=== PATIENT | female | born 1945 | race Caucasian/White ===

== ENCOUNTER → 2016-11-26 | Outpatient (CLI) | payer OTHER ==
[2016-11-26 10:06] LABS: CREATININE 0.82 mg/dL (0.55-1.02)
--- NOTE | 2016-11-27 06:53 | US ---
HISTORY: Abnormal findings on Diagnostic Imaging, left ovarian cyst. Prior surgical history of hyst erectomy. Study: Transabdominal pelvic ultrasound Comparison: CT scan done on July 13, 2016. Technique: transabdominal grayscale and color Doppler imaging was performed. Findings: Uterus is surgically absent. Urinary bladder region is unremarkable. Right ovary measures 16.4 x 24. 1 x 27.1 millimeters. The left ovary measures 18.7 x 25.6 x 33.9 millimeters. No evidence of cystic solid mass is seen involving either ovary. Color Doppler studies are normal. There is no evidence of cul-de-sac fluid. IMPRESSION: Surgically absent uterus. Normal ovaries. Reported By:
--- NOTE | 2016-11-27 17:01 | MRI ---
MRI OF THE ABDOMEN WITHOUT AND WITH IV CONTRAST Clinical indication: Splenomegaly and splenic lesion. Procedure: Multiplanar multi sequence MRI of the abdomen were obtained with and without the administ ration of intravenous contrast according to standard departmental protocol. Contrast: 20 cc of Omniscan. Comparisons: 07/16/2016 Findings: MRI of the abdomen without contrast: Redemonstration of hepatic steatosis. No significant ascites. MRI of the abdomen with contrast: Liver is normal appearance. Spleen measures 10.8 cm, previously 1 3.9 cm. Previously identified hypo enhancing lesion in the spleen is no longer present. No focal les ions. Gallbladder is present. No gallstones. No filling defects within the common bile duct. No franklin evangelist dilatation. Pancreas demonstrates normal T1 signal. No pancreatic masses. Adrenal glands are nor mal. Kidneys demonstrate normal cortical medullary differentiation. No hydronephrosis. Visualized pio wel is unremarkable. No suspicious lymph nodes. Impression: 1. Interval resolution of mild splenomegaly and central splenic lesion. The spleen is now normal in appearance. Correlate with any recent treatment. 2. Hepatic steatosis. Reported By:
== END | disposition home or self-care (01) | DRG 816 ==
LOC: RAD 09:18
PROVIDERS: ATTEND Internal Medicine
DX: R16.1 Splenomegaly, not elsewhere classified (principal); R93.5 Abnormal findings on diagnostic imaging of other abdominal regions, including retroperitoneum; K76.0 Fatty (change of) liver, not elsewhere classified
CPT/HCPCS: 36415; 74183; 76856; 82565; 84520

== ENCOUNTER 2020-07-01 17:30 | Inpatient (IN) ==
[2020-07-01 20:39] LABS: BASOPHILS # (AUTO) 0.2 X10^3/uL (0.0-0.1); BASOPHILS % (AUTO) 2.6 % (0.2-1.0); EOSINOPHILS % (AUTO) 0.5 % (0.9-2.9); HEMATOCRIT 44.3 % (36.0-47.0); LYMPHOCYTES # (AUTO) 1.1 X10^3/uL (1.3-2.9); LYMPHOCYTES % (AUTO) 12.3 % (21.0-51.0); MEAN CORPUSCULAR HEMOGLOBIN 29.8 pg (27.0-34.0); MEAN CORPUSCULAR HGB CONC 33.8 g/dL (33.0-35.0); MEAN CORPUSCULAR VOLUME 88.1 fL (80.0-100.0); MONOCYTES # (AUTO) 0.9 x10^3/uL (0.3-0.8); MONOCYTES % (AUTO) 9.8 % (0.0-13.0); NEUTROPHILS # (AUTO) 6.5 x10^3/uL (2.2-4.8); NEUTROPHILS % (AUTO) 74.8 % (42.0-75.0); PLATELET COUNT 189 X10^3/uL (150.0-450.0); RED BLOOD COUNT 5.03 X10^6/uL (3.5-5.4); RED CELL DISTRIBUTION WIDTH 13.5 % (11.6-16.5); WHITE BLOOD COUNT 8.7 X10^3/uL (3.6-10.0)
--- NOTE | 2020-07-01 20:48 | RAD ---
ACUTE ABDOMEN SERIESHISTORY:COVIDStudy: Frontal view of the chest, flat and upright views of the abdomenComparison:NoneFindings:Cardiomediastinal silhouette is normal in size .No focal consolidations, pleural effusions or pneumothorax. Large hiatal hernia. A expansion of the lung dubois.Flat and upright views of the abdomen demonstrates a normal bowel gas pattern.No free air..No abnormal calcifications or abnormal soft tissue shadows. No acute bony abnormalities.IMPRESSION:1. No acute cardiopulmonary disease.2. No evidence for acute abdominal pathology.Electronically signed by: CEDRIC SPRINGER (Jul 01, 2020 20:46:43)
[2020-07-01 20:54] LABS: ALANINE AMINOTRANSFERASE 36 Units/L (12-78); ALBUMIN 3.9 g/dL (3.4-5.0); ALKALINE PHOSPHATASE 80 Units/L (46-116); ASPARTATE AMINO TRANSFERASE 35 Units/L (15-37); BLOOD UREA NITROGEN 18 mg/dL (7-18); CALCIUM 10.1 mg/dL (8.5-10.1); CARBON DIOXIDE 25.5 mmol/L (21-32); CHLORIDE 98 mmol/L (98-107); COR NA(FOR HYPERGLY) 135 mmol/L (136-145); CREATININE 1.06 mg/dL (0.55-1.02); SODIUM 135 mmol/L (136-145); TOTAL PROTEIN 8.6 g/dL (6.4-8.2); eGFR NON BLACK RACES 54 (>60)
[2020-07-01] MEDS: NS 1000 ML 1,000 ML IV SCH (21:31)
[2020-07-01] MEDS: ZOFRAN INJ 4 MG VIAL IVP PRN (21:31)
[2020-07-01 22:13] VITALS: BMI 25.2
[2020-07-01] MEDS ORDERED: PHENERGAN INJ 25 MG IM ONE (23:55)
[2020-07-02] MEDS: PHENERGAN INJ 25 MG IM PRN ×2 (00:07→08:52)
[2020-07-02] MEDS: ZOFRAN INJ 4 MG VIAL IVP PRN ×2 (01:30→06:36)
[2020-07-02] MEDS ORDERED: POTASSIUM CHLORIDE LIQ 20 MEQ UDC PO PRN (01:31)
[2020-07-02] MEDS ORDERED: POTASSIUM CHL 40 MEQ/NS 0.45% 500 ML IV PRN (01:31)
[2020-07-02] MEDS ORDERED: POTASSIUM CHL 60 MEQ/NS 0.45% 500 ML IV PRN (01:31)
[2020-07-02] MEDS ORDERED: MICRO K EXTEN CAP 10 MEQ PO PRN (01:31)
[2020-07-02] MEDS ORDERED: KLOR-CON PO PRN (01:31)
[2020-07-02] MEDS ORDERED: K-DUR TAB 20 MEQ PO PRN (01:31)
[2020-07-02] MEDS ORDERED: K-RIDER 10 MEQ/NS 100 ML 20 MEQ/200 ML BAG IV ONE (01:35)
[2020-07-02] MEDS: K-RIDER 10 MEQ/NS 100 ML 10 MEQ/100 ML BAG IV PRN ×2 (01:47→03:00)
[2020-07-02] MEDS: NS 1000 ML 1,000 ML IV SCH ×3 (05:00→22:39)
[2020-07-02 05:07] LABS: BASOPHILS % (AUTO) 0.6 % (0.2-1.0); EOSINOPHILS % (AUTO) 0.3 % (0.9-2.9); HEMATOCRIT 40.5 % (36.0-47.0); HEMOGLOBIN 13.5 g/dL (12.0-16.0); LYMPHOCYTES # (AUTO) 0.7 X10^3/uL (1.3-2.9); LYMPHOCYTES % (AUTO) 9.7 % (21.0-51.0); MEAN CORPUSCULAR HEMOGLOBIN 29.5 pg (27.0-34.0); MEAN CORPUSCULAR HGB CONC 33.4 g/dL (33.0-35.0); MEAN CORPUSCULAR VOLUME 88.4 fL (80.0-100.0); MEAN PLATELET VOLUME 8.5 fL (7.4-11.0); MONOCYTES # (AUTO) 0.7 x10^3/uL (0.3-0.8); MONOCYTES % (AUTO) 9.8 % (0.0-13.0); NEUTROPHILS # (AUTO) 5.4 x10^3/uL (2.2-4.8); NEUTROPHILS % (AUTO) 79.6 % (42.0-75.0); PLATELET COUNT 170 X10^3/uL (150.0-450.0); RED BLOOD COUNT 4.59 X10^6/uL (3.5-5.4); WHITE BLOOD COUNT 6.8 X10^3/uL (3.6-10.0)
[2020-07-02 05:19] LABS: ALANINE AMINOTRANSFERASE 36 Units/L (12-78); ALBUMIN 3.3 g/dL (3.4-5.0); ALKALINE PHOSPHATASE 68 Units/L (46-116); ASPARTATE AMINO TRANSFERASE 35 Units/L (15-37); BLOOD UREA NITROGEN 17 mg/dL (7-18); CALCIUM 8.8 mg/dL (8.5-10.1); CARBON DIOXIDE 21.7 mmol/L (21-32); CHLORIDE 101 mmol/L (98-107); COR CA(FOR HYPOALB) 9.4 mg/dL (8.5-10.1); COR NA(FOR HYPERGLY) 136 mmol/L (136-145); CREATININE 0.85 mg/dL (0.55-1.02); SODIUM 136 mmol/L (136-145); TOTAL PROTEIN 7.4 g/dL (6.4-8.2); eGFR NON BLACK RACES > 60 (>60)
[2020-07-02] MEDS: MAGNESIUM SULFATE 1 GRAM/100 mL PREMIX 1 GM/100 ML BAG IV PRN ×2 (06:36→08:52)
[2020-07-02 06:54] LABS: BILIRUBIN,URINE 1+ (NEGATIVE); BLOOD/HEMOGLOBIN,URINE 1+ (NEGATIVE); GLUCOSE, URINE NEGATIVE (NEGATIVE); KETONES,URINE 4+ (NEGATIVE); LEUKOCYTE ESTERASE ,URINE 2+ (NEGATIVE); NITRITES,URINE NEGATIVE (NEGATIVE); PROTEIN,URINE 2+ (NEGATIVE); UROBILINOGEN,URINE 1+ (NORMAL)
[2020-07-02 07:03] LABS: APPEARANCE,URINE HAZY (CLEAR); BACTERIA,URINE TRACE /HPF (NEGATIVE); COLOR,URINE YELLOW (YELLOW); SQUAMOUS EPITHELIAL CELL,UR FEW /HPF (NEGATIVE)
[2020-07-02 07:04] LABS: HYALINE CASTS, URINE FEW /LPF (NEGATIVE); RENAL EPITHELIAL CELLS,URINE FEW /HPF (NEGATIVE)
[2020-07-02] MEDS ORDERED: ZOFRAN INJ 4 MG VIAL IVP PRN (10:48)
[2020-07-02] MEDS: ZOFRAN INJ 4 MG VIAL 16 MG, ATIVAN INJ 2 MG VIAL 1 MG, DECADRON INJ 10 MG in NS 50 ML I... IV PRN ×2 (11:39→21:32)
--- NOTE | 2020-07-02 11:39 | DR.H&P ---
H&P - History & Physical for Day of: H&P Date: 07/01/20 - Chief Complaint Chief Complaint: INTRACTABLE NAUSEA, VOMITING, ABDOMINAL PAIN - History of Present Illness History of Present Illness: IS A 74 YEAR OLD PATIENT OF OURS WHO HAD A TELEMEDICINE VISIT TODAY DUE TO COMPLAINTS OF INTRACTABLE NAUSEA, VOMITING, AND ABDOMINAL PAIN. SHE TESTED POSITIVE FOR COVID-19 APPROXIMATELY THREE WEEKS AGO. SHE RECEIVED THE OUTPATIENT [facility] INFUSION ON 06/19/20. SHE REPORTS COMPLIANCE WITH REGLAN 10MG ACHS AND ZOFRAN 4MG WITHOUT IMPROVEMENT IN SYMPTOMS. ABDOMINAL PAIN IS DESCRIBED CRAMPING, INTERMITTENT, AND WAS RATED A 6/10. DECISION WAS MADE TO ADMIT PATIENT TO THE HOSPITAL FOR FURTHER EVALUATION AND TREATMENT OF INTRACTABLE NAUSEA, VOMITING, AND ABDOMINAL PAIN. ON ARRIVAL TO THE HOSPITAL, VITALS WERE 99.0-96-20-99%-191/80. LABS WERE OBTAINED. ABNORMAL LAB VALUES INCLUDE THE FOLLOWING: SODIUM 135, CREATININE 1.06, GLUCOSE 116, TOTAL PROTEIN 8.6, GLOBULIN 4.7. URINALYSIS REVEALED: WBC 10-20, RBC 3-5, LEUKOCYTES 2+, BACTERIA TRACE, OCCULT BLOOD 1+, KETONES 4+, PROTEIN 2+. COVID-19 POSITIVE. URINE CULTURE WAS SET UP. AN ABDOMINAL SERIES WAS OBTAINED AND REVEALED: 1. No acute cardiopulmonary disease. 2. No evidence for acute abdominal pathology. SHE WAS STARTED ON NS AT 125 ML/HR, PEPCID 20MG IV Q12H, PROTONIX 40MG IV BID, PHENERGAN 12.5MG IM Q6H PRN, ZOFRAN 4MG IV Q4H PRN. WE WILL CONSULT WITH DUE TO INTRACTABLE SYMPTOMS. WE WILL OBTAIN AN ABDOMEN/PELVIS CT WITH CONTRAST AND A CHEST CTA TO RULE OUT PE. OTHERWISE, WE PLAN TO FOLLOW UP WITH AM LABS AND CONTINUE TO MONITOR. TIME SPENT ON CLINICAL ASSESSMENT, REVIEWING LABS AND IMAGING, DECISION MAKING, AND DOCUMENTATION GREATER THAN 75 MINUTES. - Past Medical History Past Medical History: Anxiety, GERD, Hypertension, Sleep Apnea Additional Medical History: IBS, HIATAL HERNIA - Past Surgical History Surgical History: Hysterectomy Additional Surgical History: Bladder tack-approximately 10 years ago - Family History Family Medical History: Cancer, Hypertension - Social History Alcohol Use: None Drug Use: None - Medications Home Medications: No Known Drug Allergies Allergy (Verified 04/19/18 10:27) CONTINUE taking the following medications alprazolam 0.5 mg PO DAILY PRN 07/01/20 [History] benzonatate 200 mg PO TID 07/01/20 [History] dicyclomine 20 mg PO TID 07/01/20 [History] esomeprazole magnesium 20 mg PO BID 07/01/20 [History] metoclopramide HCl 10 mg PO TID 07/01/20 [History] ondansetron 4 mg PO Q6H PRN 07/01/20 [History] temazepam 30 mg PO QHS PRN 07/01/20 [History] - Review of Systems Constitutional: Weakness Eyes: No Symptoms Reported ENT: No Symptoms Reported Respiratory: No Symptoms Reported Cardiovascular: No Symptoms Reported Gastrointestinal: See HPI, Nausea, Vomiting, Abdominal Pain, Diarrhea Genitourinary: No Symptoms Reported Musculoskeletal: No Symptoms Reported Skin: No Symptoms Reported Neurological: Weakness - Physical Exam Vital Signs: Temperature 97.6 F Pulse Rate [Left Radial] 88 Respiratory Rate 20 Blood Pressure [Left Arm] 178/75 O2 Sat by Pulse Oximetry 97 Oriented: Normal Eyes: Normal Ear: Normal Nose: Normal Throat: Normal Respiratory: Diminished Throughout Cardiovascular: Normal : Normal Auscultation: Bowel Sounds: Normal Palpation: Normal Tenderness: Diffuse, Moderate. negative: Rebound, Guarding, Rigidity Skin: Normal Musculoskeletal: Normal Psychiatric: Normal Mood Description: Calm Affect: Normal Speech Pattern: Clear - Assessment/Plan (1) Intractable nausea and vomiting Status: Acute Plan: ADMIT, NS AT 125 ML/HR, PEPCID 20MG IV Q12H, PROTONIX 40MG IV BID, PHENERGAN 12.5MG IM Q6H PRN, ZOFRAN 4MG IV Q4H PRN. OBTAIN ABDOMEN/PELVIS CT WITH CONTRAST. OBTAIN CHEST CTA TO RULE OUT PE. CONSULT (2) Abdominal pain Qualifiers: Abdominal location: generalized Qualified Code(s): R10.84 - Generalized abdominal pain Status: Acute (3) COVID-19 Status: Acute - Allergies Allergies/Adverse Reactions: Allergies Allergy/AdvReac Type Severity Reaction Status Date / Time No Known Drug Allergies Allergy Verified 04/19/18 10:27
--- NOTE | 2020-07-02 11:56 | CT ---
HISTORYELEVATED DDIMER, COVID-19 positiveSTUDYCTA CHEST with IV contrastCOMPARISONChest x-ray 06/19/2020TECHNIQUEMultiple axial images of the chest were obtained from the thoracic inlet to the upper abdomen after the administration of IV contrast. 3D reconstructions utilizing axial MIPS imaging was performed and reviewed. Dose reduction techniques including Automated Exposure Control (AEC) and adjustment of mA and kV were utilized.FINDINGSMild atelectasis is seen in the lower lobes associated with the large paraesophageal hernia. There is probable esophagitis in the mid to distal esophagus. Gastroesophageal reflux is seen. Moderate dilation is seen of the stomach in the abdomen which could be partially obstructed.Trace left pleural effusion is seen. No suggestion of viral pneumonia is seen. Heart is normal in size without evidence of pericardial effusion. Thoracic aorta is normal in size without evidence of dissection. No mediastinal lymphadenopathy is seen. No pulmonary embolus is seen.IMPRESSIONNo pulmonary embolus is seen. No suggestion of COVID-19 pneumonia.Large paraesophageal hernia is seen. Gastroesophageal reflux is seen with probable esophagitis. Correlation with endoscopy is recommended to assure no esophageal malignancy.Electronically signed by: Rolando Giang (Jul 02, 2020 11:54:47)
[2020-07-02] MEDS: PROTONIX INJ 40 MG VIAL IVP SCH ×2 (12:10→21:32)
[2020-07-02] MEDS: PEPCID 20 MG IV PREMIX* 20 MG/50 ML BAG IV SCH ×2 (12:10→21:32)
--- NOTE | 2020-07-02 12:59 | DR.CONSULT ---
Consult - Consultation for Day of: Date: 07/02/20 - Chief Complaint Chief Complaint: Patient referrred for intreactable nausea and vomiting. Patient with complaints of nausea, vomiting and epigastric pain. - History of Present Illness History of Present Illness: Patient is a 74 yo female COVID positive dx 3 weeks ago, who was referrred for intreactable nausea and vomiting. Patient with complaints of nausea, vomiting, has been vomiting coffee ground emesis and epigastric pain. Patient deneis dysphagia, dyspesia, constipation, diarrhea, melena and hematochezia. LAst colon was 06/13/18 which showed internal hemorrhoids and hyperplastic colon polyp. Last EGD was 06/23/18 which showed 6-7cm hiatal hernia, distal esophagitits with stricture and erosive gastritis. Hgb 13.5, Hct 40.5, Plt 170, BUN 17, Creatinine 0.85, T. Bili 0.5, AST 35, ALT 36, ALP 68 - Past Medical History Past Medical History: Anxiety, GERD, Hypertension, Sleep Apnea Additional Medical History: IBS, HIATAL HERNIA - Past Surgical History Surgical History: Hysterectomy Additional Surgical History: Bladder tack-approximately 10 years ago - Family History Family Medical History: Cancer, Hypertension - Social History Alcohol Use: None Drug Use: None - Medications Home Medications: No Known Drug Allergies Allergy (Verified 04/19/18 10:27) CONTINUE taking the following medications alprazolam 0.5 mg PO DAILY PRN 07/01/20 [History] benzonatate 200 mg PO TID 07/01/20 [History] dicyclomine 20 mg PO TID 07/01/20 [History] esomeprazole magnesium 20 mg PO BID 07/01/20 [History] metoclopramide HCl 10 mg PO TID 07/01/20 [History] ondansetron 4 mg PO Q6H PRN 07/01/20 [History] temazepam 30 mg PO QHS PRN 07/01/20 [History] - Review of Systems Gastrointestinal: Nausea, Vomiting, Abdominal Pain (epigastric), Other (coffee ground emesis). denies: Diarrhea, Constipation, Melena, Hematochezia - Physical Exam Vital Signs: Temperature 97.6 F Pulse Rate [Left Radial] 88 Respiratory Rate 20 Blood Pressure [Left Arm] 178/75 O2 Sat by Pulse Oximetry 97 Oriented: Normal Eyes: Normal Ear: Normal Nose: Normal Throat: Normal Respiratory: Clear Throughout Cardiovascular: Normal : Normal Auscultation: Bowel Sounds: Normal Palpation: Normal, Other (non distended). negative: Spleen Enlarged, Liver Enlarged, Mass Pulsatile Tenderness: Normal (non tender) Skin: Normal Musculoskeletal: Normal Psychiatric: Normal Mood Description: Calm Speech Pattern: Clear, Appropriate - Plan Plan: Assessment. 1. Nausea, vomiting, coffee ground emesis r/o gastric ulcer. Plan. 1. EGD on , protonix IV. Plan reviewed with Dr. Aleman - Allergies Allergies/Adverse Reactions: Allergies Allergy/AdvReac Type Severity Reaction Status Date / Time No Known Drug Allergies Allergy Verified 04/19/18 10:27
[2020-07-02] MEDS: NS 100 ML IV 100 ML IV ONE ×2 (19:36→19:37)
[2020-07-02] MEDS: COLACE CAP 100 MG PO SCH (21:31)
[2020-07-02] MEDS: MILK OF MAGNESIA PO SCH (21:32)
[2020-07-03 05:09] LABS: BASOPHILS % (AUTO) 0.2 % (0.2-1.0); HEMATOCRIT 34.9 % (36.0-47.0); HEMOGLOBIN 11.6 g/dL (12.0-16.0); LYMPHOCYTES # (AUTO) 0.5 X10^3/uL (1.3-2.9); MEAN CORPUSCULAR HEMOGLOBIN 29.4 pg (27.0-34.0); MEAN CORPUSCULAR HGB CONC 33.2 g/dL (33.0-35.0); MEAN CORPUSCULAR VOLUME 88.4 fL (80.0-100.0); MEAN PLATELET VOLUME 8.3 fL (7.4-11.0); MONOCYTES # (AUTO) 0.2 x10^3/uL (0.3-0.8); MONOCYTES % (AUTO) 5.1 % (0.0-13.0); NEUTROPHILS # (AUTO) 3.9 x10^3/uL (2.2-4.8); NEUTROPHILS % (AUTO) 83.7 % (42.0-75.0); PLATELET COUNT 147 X10^3/uL (150.0-450.0); RED BLOOD COUNT 3.95 X10^6/uL (3.5-5.4); RED CELL DISTRIBUTION WIDTH 13.1 % (11.6-16.5); WHITE BLOOD COUNT 4.7 X10^3/uL (3.6-10.0)
[2020-07-03 05:30] LABS: ALANINE AMINOTRANSFERASE 31 Units/L (12-78); ALBUMIN 2.7 g/dL (3.4-5.0); ALKALINE PHOSPHATASE 55 Units/L (46-116); ASPARTATE AMINO TRANSFERASE 24 Units/L (15-37); BLOOD UREA NITROGEN 13 mg/dL (7-18); CALCIUM 8.3 mg/dL (8.5-10.1); CARBON DIOXIDE 19.8 mmol/L (21-32); CHLORIDE 108 mmol/L (98-107); COR CA(FOR HYPOALB) 9.3 mg/dL (8.5-10.1); COR NA(FOR HYPERGLY) 141 mmol/L (136-145); CREATININE 0.69 mg/dL (0.55-1.02); MAGNESIUM 2.2 mg/dL (1.7-2.9); SODIUM 140 mmol/L (136-145); TOTAL PROTEIN 6.3 g/dL (6.4-8.2); eGFR NON BLACK RACES > 60 (>60)
[2020-07-03] MEDS ORDERED: LASIX IVP ONE (06:17)
[2020-07-03] MEDS: NS 1000 ML 1,000 ML IV SCH ×4 (06:45→20:02)
[2020-07-03] MEDS: PROTONIX INJ 40 MG VIAL IVP SCH ×2 (09:04→20:11)
[2020-07-03] MEDS: PEPCID 20 MG IV PREMIX* 20 MG/50 ML BAG IV SCH ×2 (09:04→20:12)
[2020-07-03] MEDS ORDERED: NS 100 ML IV 100 ML IV ONE (09:57)
--- NOTE | 2020-07-03 11:45 | CT ---
HISTORYABD PAIN previous pelvic surgerySTUDYABDOMEN/PELVIS WITH CONCOMPARISONCT abdomen and pelvis 05/23/2018TECHNIQUEMultiple CT axial images of the abdomen and pelvis were obtained with IV contrast. Coronal and sagittal images were reconstructed. Dose reduction techniques included Automated Exposure Control (AEC) and adjustment of mA and kV.FINDINGSLarge hernia through the esophageal/aortic hiatus is larger than on the prior study. Today this measures about 14.5 cm wide, previously 12 cm. This contains most of the stomach. No inflammation or fluid at the site.There is a small left pleural effusion. This is new since the prior study. Trace right effusion is also new. Otherwise lung bases are clear. Heart size within normal limits.The liver is normal in size and configuration. The gallbladder has no inflammation around it. The spleen is normal in size and shape.The adrenal glands are normal. The pancreas is normal.Renal enhancement is symmetric with no solid mass. No abnormal calcification is present. There is no hydronephrosis or significant perirenal edema. Small right renal cysts are stable.The ureters are not dilated. The bladder is normally distended. It has no wall thickening or perivesical edema.The bowel is not dilated. There is no wall thickening in the bowel or edema around the bowel. A normal appendix is not identified. But there is no inflammation around the cecum or at the expected location of the appendix.No uterus identified. No solid mass or free fluid. There is a cyst in the left pelvis which is probably ovarian in origin. It measures 17 mm, unchanged from the prior study. A given its stability and appearance, it is most likely benign.Degenerative changes are present in the spine.IMPRESSION1. Larger hiatal hernia2. New small effusions3. Stable left ovarian cyst (17 mm, probably benignElectronically signed by: Saurav Matamoros (Jul 03, 2020 11:42:28)
[2020-07-03] MEDS: INVANZ INJ 1 GM VIAL 1 GM in NS 100 ML IV + SPIKE MINIBAG* 100 ML IV SCH (17:49)
[2020-07-03] MEDS: COLACE CAP 100 MG PO SCH (20:11)
[2020-07-03] MEDS: MILK OF MAGNESIA PO SCH (20:12)
[2020-07-03] MEDS ORDERED: RESTORIL CAP 15 MG PO PRN (21:09)
[2020-07-03] MEDS: ZOFRAN INJ 4 MG VIAL 16 MG, ATIVAN INJ 2 MG VIAL 1 MG, DECADRON INJ 10 MG in NS 50 ML I... IV PRN (21:34)
[2020-07-04] MEDS: NS 1000 ML 1,000 ML IV SCH ×4 (04:24→20:03)
[2020-07-04 05:15] LABS: BASOPHILS % (AUTO) 0.2 % (0.2-1.0); HEMATOCRIT 34.4 % (36.0-47.0); HEMOGLOBIN 11.3 g/dL (12.0-16.0); LYMPHOCYTES # (AUTO) 0.6 X10^3/uL (1.3-2.9); LYMPHOCYTES % (AUTO) 7.7 % (21.0-51.0); MEAN CORPUSCULAR HEMOGLOBIN 29.2 pg (27.0-34.0); MEAN CORPUSCULAR HGB CONC 32.9 g/dL (33.0-35.0); MEAN CORPUSCULAR VOLUME 88.8 fL (80.0-100.0); MEAN PLATELET VOLUME 9.1 fL (7.4-11.0); MONOCYTES # (AUTO) 0.2 x10^3/uL (0.3-0.8); MONOCYTES % (AUTO) 3.4 % (0.0-13.0); NEUTROPHILS # (AUTO) 6.4 x10^3/uL (2.2-4.8); NEUTROPHILS % (AUTO) 88.7 % (42.0-75.0); PLATELET COUNT 155 X10^3/uL (150.0-450.0); RED BLOOD COUNT 3.88 X10^6/uL (3.5-5.4); RED CELL DISTRIBUTION WIDTH 13.3 % (11.6-16.5); WHITE BLOOD COUNT 7.2 X10^3/uL (3.6-10.0)
[2020-07-04 05:26] LABS: ALANINE AMINOTRANSFERASE 31 Units/L (12-78); ALBUMIN 2.8 g/dL (3.4-5.0); ALKALINE PHOSPHATASE 52 Units/L (46-116); ASPARTATE AMINO TRANSFERASE 20 Units/L (15-37); BLOOD UREA NITROGEN 12 mg/dL (7-18); CALCIUM 8.8 mg/dL (8.5-10.1); CARBON DIOXIDE 21.8 mmol/L (21-32); CHLORIDE 107 mmol/L (98-107); COR CA(FOR HYPOALB) 9.8 mg/dL (8.5-10.1); COR NA(FOR HYPERGLY) 140 mmol/L (136-145); CREATININE 0.76 mg/dL (0.55-1.02); SODIUM 140 mmol/L (136-145); TOTAL PROTEIN 6.4 g/dL (6.4-8.2); eGFR NON BLACK RACES > 60 (>60)
[2020-07-04] MEDS: PROTONIX INJ 40 MG VIAL IVP SCH ×2 (08:47→20:02)
[2020-07-04] MEDS: INVANZ INJ 1 GM VIAL 1 GM in NS 100 ML IV + SPIKE MINIBAG* 100 ML IV SCH (08:47)
[2020-07-04] MEDS: PEPCID 20 MG IV PREMIX* 20 MG/50 ML BAG IV SCH ×2 (08:48→20:01)
--- NOTE | 2020-07-04 08:51 | PCM.PROG ---
Progress Note - Progress Note for Day of Date of Exam: 07/03/20 - Subjective Subjective: WAS ADMITTED FOR TREATMENT OF INTRACTABLE NAUSEA, VOMITING, AND ABDOMINAL PAIN. SHE IS COVID POSITIVE, HOWEVER, SHE INITIALLY TESTED POSITIVE JUST OVER THREE WEEKS AGO. SHE DENIES COUGH OR SHORTNESS OF BREATH THIS MORNING. SYMPTOMS PERSIST THIS MORNING, BUT SHE DOES REPORT SLIGHT I MPROVEMENT TODAY. ON EXAMINATION, HEART IS REGULAR IN RATE AND RHYTHM. BILATERAL LUNGS ARE NOTED WITH DIMINISHED LUNG SOUNDS THROUGHOUT. ABDOMEN IS ROUND, SOFT, AND NOTED WITH DIFFUSE TENDERNESS THROUGHOUT. NORMAL BOWEL SOUNDS ARE NOTED IN ALL QUADRANTS. HER VITALS THIS MORNING ARE: 98.9-64-20-93%-134/62. LABS WERE OBTAINED. ABNORMAL LAB VALUES INCLUDE THE FOLLOWING: HGB 11.6, HCT 34.9, PLT COUNT 147, CHLORIDE 108, CARBON DIOXIDE 19.8, GLUCOSE 122, CALCIUM 8.3, FERRITIN 376, CRP 48.30, TOTAL PROTEIN 6.3, ALBUMIN 2.7. URINE CULTURE IS PENDING. A CHEST CTA WAS OBTAINED YESTERDAY TO RULE OUT PE DUE TO ELEVATED D-DIMER. IT REVEALED: No pulmonary embolus is seen. No suggestion of COVID-19 pneumonia. Large paraesophageal hernia is seen. Gastroesophageal reflux is seen with probable esophagitis. Correlation with endoscopy is recommended to assure no esophageal malignancy. WE OBTAINED AN ABDOMEN/PELVIS CT WITH CONTRAST THIS MORNING WHICH REVEALED: 1. Larger hiatal hernia 2. New small effusions 3. Stable left ovarian cyst (17 mm, probably benign). CONSULTED WITH PATIENT AND PLANS FOR AN EGD TOMORROW. WE ARE IN AGREEMENT WITH PLANS. OTHERWISE, WE PLAN TO FOLLOW UP WITH AM LABS AND CONTINUE TO MONITOR. TIME SPENT ON CLINICAL ASSESSMENT, REVIEWING LABS AND IMAGING, DECISION MAKING, AND DOCUMENTATION GREATER THAN 75 MINUTES. - Past Medical Family Social History Past Med/Fam/Surg Hx: No changes since H&P Allergies: Allergies No Known Drug Allergies Allergy (Verified 04/19/18 10:27) - Review of Systems ROS: No change since H&P - Vital Signs and I&O's Vital Signs: Temperature 98.7 F Pulse Rate [Left Radial] 53 Respiratory Rate 8 Blood Pressure [Left Arm] 178/77 O2 Sat by Pulse Oximetry 94 Intake and Output: Intake & Output 07/01/20 07/02/20 07/03/20 07/04/20 11:59 11:59 11:59 11:59 Intake Total 1119 / 1119 2788 / 2788 222 / 2223 Output Total 900 / 900 200 / 200 Balance 219 / 219 2588 / 2588 2222 / 2222 - Physical Exam Oriented: Normal Eyes: Normal Ear: Normal Nose: Normal Throat: Normal Respiratory: Generalized, Diminished Cardiovascular: Normal : Normal Auscultation: Bowel Sounds: Normal Palpation: Normal Tenderness: Normal (non tender) Skin: Normal Musculoskeletal: Normal Psychiatric: Normal Mood Description: Calm Affect: Normal Speech Pattern: Clear, Appropriate - Laboratory and Diagnostics Result Diagrams: 07/04/20 04:30 07/04/20 04:30 Labs: 07/02/20 06:29 Urine,Clean Catch Urine Culture - Preliminary Laboratory WBC 7.2 X10^3/uL (3.6-10.0) 07/04/20 04:30 RBC 3.88 X10^6/uL (3.5-5.4) 07/04/20 04:30 Hgb 11.3 g/dL (12.0-16.0) L 07/04/20 04:30 Hct 34.4 % (36.0-47.0) L 07/04/20 04:30 MCV 88.8 fL (80.0-100.0) 07/04/20 04:30 MCH 29.2 pg (27.0-34.0) 07/04/20 04:30 MCHC 32.9 g/dL (33.0-35.0) L 07/04/20 04:30 RDW 13.3 % (11.6-16.5) 07/04/20 04:30 Plt Count 155 X10^3/uL (150.0-450.0) 07/04/20 04:30 MPV 9.1 fL (7.4-11.0) 07/04/20 04:30 Neut % (Auto) 88.7 % (42.0-75.0) H 07/04/20 04:30 Lymph % (Auto) 7.7 % (21.0-51.0) L 07/04/20 04:30 [place] % (Auto) 3.4 % (0.0-13.0) 07/04/20 04:30 Eos % (Auto) 0.0 % (0.9-2.9) L 07/04/20 04:30 Baso % (Auto) 0.2 % (0.2-1.0) 07/04/20 04:30 Neut # (Auto) 6.4 x10^3/uL (2.2-4.8) H 07/04/20 04:30 Lymph # (Auto) 0.6 X10^3/uL (1.3-2.9) L 07/04/20 04:30 [place] # (Auto) 0.2 x10^3/uL (0.3-0.8) L 07/04/20 04:30 Eos # (Auto) 0.0 x10^3/uL (0.0-0.2) 07/04/20 04:30 Baso # (Auto) 0.0 X10^3/uL (0.0-0.1) 07/04/20 04:30 Absolute Nucleated RBC 0.1 /100WBC 07/04/20 04:30 D-Dimer 3.23 ug/ml (0.0-0.57) H* 07/04/20 04:30 Sodium 140 mmol/L (136-145) 07/04/20 04:30 Corrected Sodium 140 mmol/L (136-145) 07/04/20 04:30 Potassium 3.9 mmol/L (3.5-5.1) 07/04/20 04:30 Chloride 107 mmol/L (98-107) 07/04/20 04:30 Carbon Dioxide 21.8 mmol/L (21-32) 07/04/20 04:30 BUN 12 mg/dL (7-18) 07/04/20 04:30 Creatinine 0.76 mg/dL (0.55-1.02) 07/04/20 04:30 Est GFR (MDRD) Af Amer > 60 (>60) 07/04/20 04:30 Est GFR (MDRD) Non-Af > 60 (>60) 07/04/20 04:30 Glucose 111 mg/dL (65-99) H 07/04/20 04:30 Calcium 8.8 mg/dL (8.5-10.1) 07/04/20 04:30 Corrected Calcium 9.8 mg/dL (8.5-10.1) 07/04/20 04:30 Magnesium 2.2 mg/dL (1.7-2.9) 07/03/20 04:30 Ferritin 376 ng/mL (8-252) H 07/03/20 04:30 Total Bilirubin 0.30 mg/dL (0.2-1.0) 07/04/20 04:30 AST 20 Units/L (15-37) 07/04/20 04:30 ALT 31 Units/L (12-78) 07/04/20 04:30 Alkaline Phosphatase 52 Units/L (46-116) 07/04/20 04:30 C-Reactive Protein 48.30 mg/L (0-3.0) H 07/03/20 04:30 B-Natriuretic Peptide 44.6 pg/mL (0-79) 07/02/20 04:10 Total Protein 6.4 g/dL (6.4-8.2) 07/04/20 04:30 Albumin 2.8 g/dL (3.4-5.0) L 07/04/20 04:30 Globulin 3.6 g/dL (2.5-4.5) 07/04/20 04:30 Albumin/Globulin Ratio 0.8 Ratio (1.1-2.1) L 07/04/20 04:30 Specimen Type Clean catch urine 07/02/20 06:29 Urine Color Yellow (YELLOW) 07/02/20 06:29 Urine Appearance Hazy (CLEAR) 07/02/20 06:29 Urine pH 5.0 (5.0 - 8.0) 07/02/20 06:29 Ur Specific [place] 1.025 (1.000-1.030) 07/02/20 06:29 Urine Protein 2+ (NEGATIVE) 07/02/20 06:29 Urine Glucose (UA) Negative (NEGATIVE) 07/02/20 06: Urine Ketones 4+ (NEGATIVE) 07/02/20 06:29 Urine Occult Blood 1+ (NEGATIVE) 07/02/20 06: Urine Nitrite Negative (NEGATIVE) 07/02/20 06:29 Urine Bilirubin 1+ (NEGATIVE) 07/02/20 06: Urine Urobilinogen 1+ (NORMAL) 07/02/20 06:29 Ur Leukocyte Esterase 2+ (NEGATIVE) 07/02/20 06:29 Urine RBC 3-5 /HPF (0-3) A 07/02/20 06:29 Urine WBC 10-20 /HPF (0-5) A 07/02/20 06:29 Ur Squamous Epith Cells Few /HPF (NEGATIVE) 07/02/20 06:29 Ur Renal Epithelial Cell Few /HPF (NEGATIVE) 07/02/20 06:29 Urine Bacteria Trace /HPF (NEGATIVE) 07/02/20 06:29 Hyaline Casts Few /LPF (NEGATIVE) 07/02/20 06:29 Ur Culture Indicated? Yes/culture set up 07/02/20 06:29 SARS CoV-2 RNA Rapid ODESSA Positive (NEGATIVE) A 07/01/20 18:30 - Plan (1) Intractable nausea and vomiting Status: Acute Plan: NS AT 125 ML/HR, PEPCID 20MG IV Q12H, PROTONIX 40MG IV BID, PHENERGAN 12.5MG IM Q6H PRN, ZOFRAN 4MG IV Q4H PRN. SURGICAL CONSULT (2) Abdominal pain Status: Acute Qualifiers: Abdominal location: generalized Qualified Code(s): R10.84 - Generalized abdominal pain (3) COVID-19 Status: Acute
--- NOTE | 2020-07-04 09:01 | PCM.PROG ---
Progress Note - Progress Note for Day of Date of Exam: 07/02/20 - Subjective Subjective: WAS ADMITTED FOR TREATMENT OF INTRACTABLE NAUSEA, VOMITING, AND ABDOMINAL PAIN. SHE IS COVID POSITIVE, HOWEVER, SHE INITIALLY TESTED POSITIVE JUST OVER THREE WEEKS AGO. SHE DENIES COUGH OR SHORTNESS OF BREATH THIS MORNING. SYMPTOMS PERSIST THIS MORNING. SHE DENIES SIGNIFICANT IMPRO VEMENT IN SYMPTOMS SINCE ONE DAY PRIOR. ON EXAMINATION, HEART IS REGULAR IN RATE AND RHYTHM. BILATERAL LUNGS ARE NOTED WITH DIMINISHED LUNG SOUNDS THROUGHOUT. ABDOMEN IS ROUND, SOFT, AND NOTED WITH DIFFUSE TENDERNESS THROUGHOUT. NORMAL BOWEL SOUNDS ARE NOTED IN ALL QUADRANTS. HER VITALS THIS MORNING ARE: 97.6-88-20-97%-178/75. LABS WERE OBTAINED. ABNORMAL LAB VALUES INCLUDE THE FOLLOWING: D-DIMER 3.04, GLUCOSE 111, ALBUMIN 3.3, FERRITIN 409, CRP 56.70. URINALYSIS WAS OBTAINED THIS MORNING AND REVEALED: WBC 10-20, RBC 3-5, BACTERIA TRACE, LEUKOCYTES 2+. URINE CULTURE IS PENDING. NS AT 125 ML/HR, PEPCID 20MG IV Q12H, PROTONIX 40MG IV BID, PHENERGAN 12.5MG IM Q6H PRN, ZOFRAN 4MG IV Q4H PRN. TODAY, WE WILL OBTAIN A CHEST CTA TO RULE OUT PE. WE WILL ALSO ADD ZOFRAN COCKTAIL Q8H PRN NAUSEA/VOMITING. WE WILL CONSULT WITH , GASTRO ENTEROLOGIST. OTHERWISE, WE PLAN TO FOLLOW UP WITH AM LABS AND CONTINUE TO MONITOR. TIME SPENT ON CLINICAL ASSESSMENT, REVIEWING LABS AND IMAGING, DECISION MAKING, AND DOCUMENTATION GREATER THAN 75 MINUTES. - Past Medical Family Social History Past Med/Fam/Surg Hx: No changes since H&P Allergies: Allergies No Known Drug Allergies Allergy (Verified 04/19/18 10:27) - Review of Systems ROS: No change since H&P - Vital Signs and I&O's Vital Signs: Temperature 98.7 F Pulse Rate [Left Radial] 53 Respiratory Rate 8 Blood Pressure [Left Arm] 178/77 O2 Sat by Pulse Oximetry 94 Intake and Output: Intake & Output 07/01/20 07/02/20 07/03/20 07/04/20 11:59 11:59 11:59 11:59 Intake Total 1119 / 1119 2788 / 2788 2223 / 2223 Output Total 900 / 900 200 / 200 Balance 219 / 219 2588 / 2588 2223 / 2223 - Physical Exam Oriented: Normal Eyes: Normal Ear: Normal Nose: Normal Throat: Normal Respiratory: Generalized, Diminished Cardiovascular: Normal : Normal Auscultation: Bowel Sounds: Normal Palpation: Normal Tenderness: Normal (non tender) Skin: Normal Musculoskeletal: Normal Psychiatric: Normal Mood Description: Calm Affect: Normal Speech Pattern: Clear, Appropriate - Laboratory and Diagnostics Result Diagrams: 07/04/20 04:30 07/04/20 04:30 Labs: 07/02/20 06:29 Urine,Clean Catch Urine Culture - Preliminary Laboratory WBC 7.2 X10^3/uL (3.6-10.0) 07/04/20 04:30 RBC 3.88 X10^6/uL (3.5-5.4) 07/04/20 04:30 Hgb 11.3 g/dL (12.0-16.0) L 07/04/20 04:30 Hct 34.4 % (36.0-47.0) L 07/04/20 04:30 MCV 88.8 fL (80.0-100.0) 07/04/20 04:30 MCH 29.2 pg (27.0-34.0) 07/04/20 04:30 MCHC 32.9 g/dL (33.0-35.0) L 07/04/20 04:30 RDW 13.3 % (11.6-16.5) 07/04/20 04:30 Plt Count 155 X10^3/uL (150.0-450.0) 07/04/20 04:30 MPV 9.1 fL (7.4-11.0) 07/04/20 04:30 Neut % (Auto) 88.7 % (42.0-75.0) H 07/04/20 04:30 Lymph % (Auto) 7.7 % (21.0-51.0) L 07/04/20 04:30 [place] % (Auto) 3.4 % (0.0-13.0) 07/04/20 04:30 Eos % (Auto) 0.0 % (0.9-2.9) L 07/04/20 04:30 Baso % (Auto) 0.2 % (0.2-1.0) 07/04/20 04:30 Neut # (Auto) 6.4 x10^3/uL (2.2-4.8) H 07/04/20 04:30 Lymph # (Auto) 0.6 X10^3/uL (1.3-2.9) L 07/04/20 04:30 [place] # (Auto) 0.2 x10^3/uL (0.3-0.8) L 07/04/20 04:30 Eos # (Auto) 0.0 x10^3/uL (0.0-0.2) 07/04/20 04:30 Baso # (Auto) 0.0 X10^3/uL (0.0-0.1) 07/04/20 04:30 Absolute Nucleated RBC 0.1 /100WBC 07/04/20 04:30 D-Dimer 3.23 ug/ml (0.0-0.57) H* 07/04/20 04:30 Sodium 140 mmol/L (136-145) 07/04/20 04:30 Corrected Sodium 140 mmol/L (136-145) 07/04/20 04:30 Potassium 3.9 mmol/L (3.5-5.1) 07/04/20 04:30 Chloride 107 mmol/L (98-107) 07/04/20 04:30 Carbon Dioxide 21.8 mmol/L (21-32) 07/04/20 04:30 BUN 12 mg/dL (7-18) 07/04/20 04:30 Creatinine 0.76 mg/dL (0.55-1.02) 07/04/20 04:30 Est GFR (MDRD) Af Amer > 60 (>60) 07/04/20 04:30 Est GFR (MDRD) Non-Af > 60 (>60) 07/04/20 04:30 Glucose 111 mg/dL (65-99) H 07/04/20 04:30 Calcium 8.8 mg/dL (8.5-10.1) 07/04/20 04:30 Corrected Calcium 9.8 mg/dL (8.5-10.1) 07/04/20 04:30 Magnesium 2.2 mg/dL (1.7-2.9) 07/03/20 04:30 Ferritin 376 ng/mL (8-252) H 07/03/20 04:30 Total Bilirubin 0.30 mg/dL (0.2-1.0) 07/04/20 04:30 AST 20 Units/L (15-37) 07/04/20 04:30 ALT 31 Units/L (12-78) 07/04/20 04:30 Alkaline Phosphatase 52 Units/L (46-116) 07/04/20 04:30 C-Reactive Protein 48.30 mg/L (0-3.0) H 07/03/20 04:30 B-Natriuretic Peptide 44.6 pg/mL (0-79) 07/02/20 04:10 Total Protein 6.4 g/dL (6.4-8.2) 07/04/20 04:30 Albumin 2.8 g/dL (3.4-5.0) L 07/04/20 04:30 Globulin 3.6 g/dL (2.5-4.5) 07/04/20 04:30 Albumin/Globulin Ratio 0.8 Ratio (1.1-2.1) L 07/04/20 04:30 Specimen Type Clean catch urine 07/02/20 06:29 Urine Color Yellow (YELLOW) 07/02/20 06:29 Urine Appearance Hazy (CLEAR) 07/02/20 06:29 Urine pH 5.0 (5.0 - 8.0) 07/02/20 06:29 Ur Specific [place] 1.025 (1.000-1.030) 07/02/20 06:29 Urine Protein 2+ (NEGATIVE) 07/02/20 06:29 Urine Glucose (UA) Negative (NEGATIVE) 07/02/20 06:29 Urine Ketones 4+ (NEGATIVE) 07/02/20 06:29 Urine Occult Blood 1+ (NEGATIVE) 07/02/20 06:29 Urine Nitrite Negative (NEGATIVE) 07/02/20 06:29 Urine Bilirubin 1+ (NEGATIVE) 07/02/20 06:29 Urine Urobilinogen 1+ (NORMAL) 07/02/20 06:29 Ur Leukocyte Esterase 2+ (NEGATIVE) 07/02/20 06:29 Urine RBC 3-5 /HPF (0-3) A 07/02/20 06:29 Urine WBC 10-20 /HPF (0-5) A 07/02/20 06:29 Ur Squamous Epith Cells Few /HPF (NEGATIVE) 07/02/20 06:29 Ur Renal Epithelial Cell Few /HPF (NEGATIVE) 07/02/20 06:29 Urine Bacteria Trace /HPF (NEGATIVE) 07/02/20 06:29 Hyaline Casts Few /LPF (NEGATIVE) 07/02/20 06:29 Ur Culture Indicated? Yes/culture set up 07/02/20 06:29 SARS CoV-2 RNA Rapid ODESSA Positive (NEGATIVE) A 07/01/20 18:30 - Plan (1) Intractable nausea and vomiting Status: Acute Plan: NS AT 125 ML/HR, PEPCID 20MG IV Q12H, PROTONIX 40MG IV BID, PHENERGAN 12.5MG IM Q6H PRN, ZOFRAN 4MG IV Q8H PRN, ZOFRAN COCKTAIL Q8H PRN. SURGICAL CONSULT (2) Abdominal pain Status: Acute Qualifiers: Abdominal location: generalized Qualified Code(s): R10.84 - Generalized abdominal pain (3) COVID-19 Status: Acute
[2020-07-04] MEDS ORDERED: KETALAR ONE (12:23)
[2020-07-04] MEDS: HYZAAR 50/12.5 MG PO SCH (14:42)
[2020-07-04] MEDS: REGLAN INJ 10 MG VIAL IVP SCH ×2 (17:18→20:02)
[2020-07-04] MEDS: MILK OF MAGNESIA PO SCH (20:01)
[2020-07-04] MEDS: COLACE CAP 100 MG PO SCH (20:01)
[2020-07-04] MEDS: RESTORIL CAP 15 MG PO PRN (20:02)
[2020-07-05 05:13] LABS: BASOPHILS % (AUTO) 0.4 % (0.2-1.0); EOSINOPHILS # (AUTO) 0.1 x10^3/uL (0.0-0.2); EOSINOPHILS % (AUTO) 2.7 % (0.9-2.9); HEMATOCRIT 32.3 % (36.0-47.0); HEMOGLOBIN 10.9 g/dL (12.0-16.0); LYMPHOCYTES % (AUTO) 22.3 % (21.0-51.0); MEAN CORPUSCULAR HEMOGLOBIN 29.4 pg (27.0-34.0); MEAN CORPUSCULAR HGB CONC 33.6 g/dL (33.0-35.0); MEAN CORPUSCULAR VOLUME 87.8 fL (80.0-100.0); MONOCYTES # (AUTO) 0.5 x10^3/uL (0.3-0.8); MONOCYTES % (AUTO) 11.8 % (0.0-13.0); NEUTROPHILS # (AUTO) 2.9 x10^3/uL (2.2-4.8); NEUTROPHILS % (AUTO) 62.8 % (42.0-75.0); PLATELET COUNT 107 X10^3/uL (150.0-450.0); RED BLOOD COUNT 3.69 X10^6/uL (3.5-5.4); RED CELL DISTRIBUTION WIDTH 13.2 % (11.6-16.5); WHITE BLOOD COUNT 4.6 X10^3/uL (3.6-10.0)
[2020-07-05 05:32] LABS: ALANINE AMINOTRANSFERASE 32 Units/L (12-78); ALBUMIN 2.5 g/dL (3.4-5.0); ALKALINE PHOSPHATASE 48 Units/L (46-116); ASPARTATE AMINO TRANSFERASE 24 Units/L (15-37); BLOOD UREA NITROGEN 7 mg/dL (7-18); CALCIUM 8.3 mg/dL (8.5-10.1); CARBON DIOXIDE 25.3 mmol/L (21-32); CHLORIDE 105 mmol/L (98-107); COR CA(FOR HYPOALB) 9.5 mg/dL (8.5-10.1); SODIUM 140 mmol/L (136-145); TOTAL PROTEIN 5.9 g/dL (6.4-8.2); eGFR NON BLACK RACES > 60 (>60)
[2020-07-05] MEDS: NS 1000 ML 1,000 ML IV SCH ×3 (05:33→21:27)
[2020-07-05] MEDS: REGLAN INJ 10 MG VIAL IVP SCH ×4 (05:57→21:30)
--- NOTE | 2020-07-05 08:37 | PCM.PROG ---
Progress Note - Progress Note for Day of Date of Exam: 07/04/20 - Subjective Subjective: WAS ADMITTED FOR TREATMENT OF INTRACTABLE NAUSEA, VOMITING, AND ABDOMINAL PAIN. SHE IS COVID POSITIVE, HOWEVER, SHE INITIALLY TESTED POSITIVE JUST OVER THREE WEEKS AGO. SHE DENIES COUGH OR SHORTNESS OF BREATH THIS MORNING. SYMPTOMS PERSIST THIS MORNING. NO SIGNIFICANT CHANGE IN SYM PTOMS SINCE YESTERDAY. ON EXAMINATION, HEART IS REGULAR IN RATE AND RHYTHM. BILATERAL LUNGS ARE NOTED WITH DIMINISHED LUNG SOUNDS THROUGHOUT. ABDOMEN IS ROUND, SOFT, AND NOTED WITH DIFFUSE TENDERNESS THROUGHOUT. NORMAL BOWEL SOUNDS ARE NOTED IN ALL QUADRANTS. HER VITALS THIS MORNING ARE: 98.2-64-21-94%-135/65. LABS WERE OBTAINED. ABNORMAL LAB VALUES INCLUDE THE FOLLOWING: HGB 11.3, HCT 34.4, GLUCOSE 111, ALBUMIN 2.8. PLANS FOR AN EGD THIS MORNING. WE ARE IN AGREEMENT WITH PLANS. SHE IS CURRENTLY RECEIVING NS AT 125 ML/HR, PEPCID 20MG IV Q12H, PROTONIX 40MG IV BID, PHENERGAN 12.5MG IM Q6H PRN, ZOFRAN 4MG IV Q8H PRN, AND ZOFRAN COCKTAIL Q8H PRN. OTHERWISE, WE PLAN TO FOLLOW UP WITH AM LABS AND CONTINUE TO MONITOR. TIME SPENT ON CLINICAL ASSESSMENT, REVIEWING LABS AND IMAGING, DECISION MAKING, AND DOCUMENTATION GREATER THAN 75 MINUTES. - Past Medical Family Social History Past Med/Fam/Surg Hx: No changes since H&P Allergies: Allergies No Known Drug Allergies Allergy (Verified 04/19/18 10:27) - Review of Systems ROS: No change since H&P - Vital Signs and I&O's Vital Signs: Temperature 97.9 F Pulse Rate [Left Radial] 53 Pulse Rate 66 Respiratory Rate 21 Blood Pressure [Left Arm] 178/77 Blood Pressure 160/70 O2 Sat by Pulse Oximetry 93 Intake and Output: Intake & Output 07/02/20 07/03/20 07/04/20 07/05/20 11:59 11:59 11:59 11:59 Intake Total 1119 / 1119 2788 / 2788 2223 / 2223 2462 / 2462 Output Total 900 / 900 200 / 200 200 / 200 Balance 219 / 219 2588 / 2588 2223 / 2223 2262 / 2262 - Physical Exam Oriented: Normal Eyes: Normal Ear: Normal Nose: Normal Throat: Normal Respiratory: Generalized, Diminished Cardiovascular: Normal : Normal Auscultation: Bowel Sounds: Normal Palpation: Normal Tenderness: Normal (non tender) Skin: Normal Musculoskeletal: Normal Psychiatric: Normal Mood Description: Calm Affect: Normal Speech Pattern: Clear, Appropriate - Laboratory and Diagnostics Result Diagrams: 07/05/20 04:30 07/05/20 04:30 Labs: 07/02/20 06:29 Urine,Clean Catch Urine Culture - Final Laboratory WBC 4.6 X10^3/uL (3.6-10.0) 07/05/20 04:30 RBC 3.69 X10^6/uL (3.5-5.4) 07/05/20 04:30 Hgb 10.9 g/dL (12.0-16.0) L 07/05/20 04:30 Hct 32.3 % (36.0-47.0) L 07/05/20 04:30 MCV 87.8 fL (80.0-100.0) 07/05/20 04:30 MCH 29.4 pg (27.0-34.0) 07/05/20 04:30 MCHC 33.6 g/dL (33.0-35.0) 07/05/20 04:30 RDW 13.2 % (11.6-16.5) 07/05/20 04:30 Plt Count 107 X10^3/uL (150.0-450.0) L 07/05/20 04:30 MPV 11.0 fL (7.4-11.0) 07/05/20 04:30 Neut % (Auto) 62.8 % (42.0-75.0) 07/05/20 04:30 Lymph % (Auto) 22.3 % (21.0-51.0) 07/05/20 04:30 [place] % (Auto) 11.8 % (0.0-13.0) 07/05/20 04:30 Eos % (Auto) 2.7 % (0.9-2.9) 07/05/20 04:30 Baso % (Auto) 0.4 % (0.2-1.0) 07/05/20 04:30 Neut # (Auto) 2.9 x10^3/uL (2.2-4.8) 07/05/20 04:30 Lymph # (Auto) 1.0 X10^3/uL (1.3-2.9) L 07/05/20 04:30 [place] # (Auto) 0.5 x10^3/uL (0.3-0.8) 07/05/20 04:30 Eos # (Auto) 0.1 x10^3/uL (0.0-0.2) 07/05/20 04:30 Baso # (Auto) 0.0 X10^3/uL (0.0-0.1) 07/05/20 04:30 Absolute Nucleated RBC 0.0 /100WBC 07/05/20 04:30 D-Dimer 3.23 ug/ml (0.0-0.57) H* 07/04/20 04:30 Sodium 140 mmol/L (136-145) 07/05/20 04:30 Corrected Sodium TNP 07/05/20 04:30 Potassium 3.0 mmol/L (3.5-5.1) L* 07/05/20 04:30 Chloride 105 mmol/L (98-107) 07/05/20 04:30 Carbon Dioxide 25.3 mmol/L (21-32) 07/05/20 04:30 BUN 7 mg/dL (7-18) 07/05/20 04:30 Creatinine 0.80 mg/dL (0.55-1.02) 07/05/20 04:30 Est GFR (MDRD) Af Amer > 60 (>60) 07/05/20 04:30 Est GFR (MDRD) Non-Af > 60 (>60) 07/05/20 04:30 Glucose 80 mg/dL (65-99) 07/05/20 04:30 Calcium 8.3 mg/dL (8.5-10.1) L 07/05/20 04:30 Corrected Calcium 9.5 mg/dL (8.5-10.1) 07/05/20 04:30 Magnesium 2.2 mg/dL (1.7-2.9) 07/03/20 04:30 Ferritin 376 ng/mL (8-252) H 07/03/20 04:30 Total Bilirubin 0.40 mg/dL (0.2-1.0) 07/05/20 04:30 AST 24 Units/L (15-37) 07/05/20 04:30 ALT 32 Units/L (12-78) 07/05/20 04:30 Alkaline Phosphatase 48 Units/L (46-116) 07/05/20 04:30 C-Reactive Protein 48.30 mg/L (0-3.0) H 07/03/20 04:30 B-Natriuretic Peptide 44.6 pg/mL (0-79) 07/02/20 04:10 Total Protein 5.9 g/dL (6.4-8.2) L 07/05/20 04:30 Albumin 2.5 g/dL (3.4-5.0) L 07/05/20 04:30 Globulin 3.4 g/dL (2.5-4.5) 07/05/20 04:30 Albumin/Globulin Ratio 0.7 Ratio (1.1-2.1) L 07/05/20 04:30 Specimen Type Clean catch urine 07/02/20 06:29 Urine Color Yellow (YELLOW) 07/02/20 06:29 Urine Appearance Hazy (CLEAR) 07/02/20 06:29 Urine pH 5.0 (5.0 - 8.0) 07/02/20 06:29 Ur Specific [place] 1.025 (1.000-1.030) 07/02/20 06:29 Urine Protein 2+ (NEGATIVE) 07/02/20 06:29 Urine Glucose (UA) Negative (NEGATIVE) 07/02/20 06:29 Urine Ketones 4+ (NEGATIVE) 07/02/20 06:29 Urine Occult Blood 1+ (NEGATIVE) 07/02/20 06:29 Urine Nitrite Negative (NEGATIVE) 07/02/20 06:29 Urine Bilirubin 1+ (NEGATIVE) 07/02/20 06:29 Urine Urobilinogen 1+ (NORMAL) 07/02/20 06:29 Ur Leukocyte Esterase 2+ (NEGATIVE) 07/02/20 06:29 Urine RBC 3-5 /HPF (0-3) A 07/02/20 06:29 Urine WBC 10-20 /HPF (0-5) A 07/02/20 06:29 Ur Squamous Epith Cells Few /HPF (NEGATIVE) 07/02/20 06:29 Ur Renal Epithelial Cell Few /HPF (NEGATIVE) 07/02/20 06:29 Urine Bacteria Trace /HPF (NEGATIVE) 07/02/20 06:29 Hyaline Casts Few /LPF (NEGATIVE) 07/02/20 06:29 Ur Culture Indicated? Yes/culture set up 07/02/20 06:29 SARS CoV-2 RNA Rapid ODESSA Positive (NEGATIVE) A 07/01/20 18:30 Tissue Pathology To follow 07/04/20 12:33 - Plan (1) Intractable nausea and vomiting Status: Acute Plan: NS AT 125 ML/HR, PEPCID 20MG IV Q12H, PROTONIX 40MG IV BID, PHENERGAN 12.5MG IM Q6H PRN, ZOFRAN 4MG IV Q8H PRN, ZOFRAN COCKTAIL Q8H PRN. SURGICAL CONSULT (2) Abdominal pain Status: Acute Qualifiers: Abdominal location: generalized Qualified Code(s): R10.84 - Generalized abdominal pain (3) COVID-19 Status: Acute
[2020-07-05] MEDS: PEPCID 20 MG IV PREMIX* 20 MG/50 ML BAG IV SCH ×2 (08:54→21:28)
[2020-07-05] MEDS: HYZAAR 50/12.5 MG PO SCH (08:54)
[2020-07-05] MEDS: INVANZ INJ 1 GM VIAL 1 GM in NS 100 ML IV + SPIKE MINIBAG* 100 ML IV SCH (08:54)
[2020-07-05] MEDS: PROTONIX INJ 40 MG VIAL IVP SCH ×2 (08:54→21:28)
--- NOTE | 2020-07-05 10:36 | PCM.PROG ---
Progress Note - Progress Note for Day of Date of Exam: 07/05/20 - Subjective Subjective: WAS ADMITTED FOR TREATMENT OF INTRACTABLE NAUSEA, VOMITING, AND ABDOMINAL PAIN. ABDOMINAL CT REVEALED A LARGE PARAESOPHAGEAL HERNIA, GERD, AND ESOPHAGITIS. SHE IS COVID POSITIVE, HOWEVER, SHE INITIALLY TESTED POSITIVE JUST OVER THREE WEEKS AGO. SHE DENIES COUGH OR SHORTNESS OF MASTER ATH THIS MORNING. SYMPTOMS PERSIST THIS MORNING. NO SIGNIFICANT CHANGE IN SYMPTOMS SINCE YESTERDAY. ON EXAMINATION, HEART IS REGULAR IN RATE AND RHYTHM. BILATERAL LUNGS ARE NOTED WITH DIMINISHED LUNG SOUNDS THROUGHOUT. ABDOMEN IS ROUND, SOFT, AND NOTED WITH DIFFUSE TENDERNESS THROUGHOUT. NORMAL BOWEL SOUNDS ARE NOTED IN ALL QUADRANTS. HER VITALS THIS MORNING ARE: 98.2-64-21-94%-135/65. LABS WERE OBTAINED. ABNORMAL LAB VALUES INCLUDE THE FOLLOWING: HGB 11.3, HCT 34.4, GLUCOSE 111, ALBUMIN 2.8. PERFORMED AN EGD YESTERDAY, WHICH REVEALED A DISTAL ESOPHAGUS ULCER, A 6CM HIATAL HERNIA, AND MILD TO MODERATE GASTRITIS. HE RESUMED HER PROTONIX AND REGLAN AND PLANNED TO ADVANCE HER DIET. SHE IS CURRENTLY RECEIVING NS AT 125 ML/HR, PEPCID 20MG IV Q12H, PROTONIX 40MG IV BID, REGLAN 10MG IV ACHS, PHENERGAN 12.5MG IM Q6H PRN, ZOFRAN 4MG IV Q8H PRN, AND ZOFRAN COCKTAIL Q8H PRN. WE WILL ADVANCE HER TO A SOFT DIET TODAY. OTHERWISE, WE PLAN TO FOLLOW UP WITH AM LABS AND CONTINUE TO MONITOR. TIME SPENT ON CLINICAL ASSESSMENT, REVIEWING LABS AND IMAGING, DECISION MAKING, AND DOCUMENTATION GREATER THAN 75 MINUTES. - Past Medical Family Social History Past Med/Fam/Surg Hx: No changes since H&P Allergies: Allergies No Known Drug Allergies Allergy (Verified 04/19/18 10:27) - Review of Systems ROS: No change since H&P - Vital Signs and I&O's Vital Signs: Temperature 97.9 F Pulse Rate [Left Radial] 53 Pulse Rate 66 Respiratory Rate 21 Blood Pressure [Left Arm] 178/77 Blood Pressure 160/70 O2 Sat by Pulse Oximetry 93 Intake and Output: Intake & Output 07/02/20 07/03/20 07/04/20 07/05/20 11:59 11:59 11:59 11:59 Intake Total 1119 / 1119 2788 / 2788 2223 / 2223 2462 / 2462 Output Total 900 / 900 200 / 200 200 / 200 Balance 219 / 219 2588 / 2588 2223 / 2223 2262 / 2262 - Physical Exam Oriented: Normal Eyes: Normal Ear: Normal Nose: Normal Throat: Normal Respiratory: Generalized, Diminished Cardiovascular: Normal : Normal Auscultation: Bowel Sounds: Normal Palpation: Normal Tenderness: Normal (non tender) Skin: Normal Musculoskeletal: Normal Psychiatric: Normal Mood Description: Calm Affect: Normal Speech Pattern: Clear, Appropriate - Laboratory and Diagnostics Result Diagrams: 07/05/20 04:30 07/05/20 09:00 Labs: 07/02/20 06:29 Urine,Clean Catch Urine Culture - Final Laboratory WBC 4.6 X10^3/uL (3.6-10.0) 07/05/20 04:30 RBC 3.69 X10^6/uL (3.5-5.4) 07/05/20 04:30 Hgb 10.9 g/dL (12.0-16.0) L 07/05/20 04:30 Hct 32.3 % (36.0-47.0) L 07/05/20 04:30 MCV 87.8 fL (80.0-100.0) 07/05/20 04:30 MCH 29.4 pg (27.0-34.0) 07/05/20 04:30 MCHC 33.6 g/dL (33.0-35.0) 07/05/20 04:30 RDW 13.2 % (11.6-16.5) 07/05/20 04:30 Plt Count 107 X10^3/uL (150.0-450.0) L 07/05/20 04:30 MPV 11.0 fL (7.4-11.0) 07/05/20 04:30 Neut % (Auto) 62.8 % (42.0-75.0) 07/05/20 04:30 Lymph % (Auto) 22.3 % (21.0-51.0) 07/05/20 04:30 [place] % (Auto) 11.8 % (0.0-13.0) 07/05/20 04:30 Eos % (Auto) 2.7 % (0.9-2.9) 07/05/20 04:30 Baso % (Auto) 0.4 % (0.2-1.0) 07/05/20 04:30 Neut # (Auto) 2.9 x10^3/uL (2.2-4.8) 07/05/20 04:30 Lymph # (Auto) 1.0 X10^3/uL (1.3-2.9) L 07/05/20 04:30 [place] # (Auto) 0.5 x10^3/uL (0.3-0.8) 07/05/20 04:30 Eos # (Auto) 0.1 x10^3/uL (0.0-0.2) 07/05/20 04:30 Baso # (Auto) 0.0 X10^3/uL (0.0-0.1) 07/05/20 04:30 Absolute Nucleated RBC 0.0 /100WBC 07/05/20 04:30 D-Dimer 3.23 ug/ml (0.0-0.57) H* 07/04/20 04:30 Sodium 140 mmol/L (136-145) 07/05/20 04:30 Corrected Sodium TNP 07/05/20 04:30 Potassium 3.7 mmol/L (3.5-5.1) 07/05/20 09:00 Chloride 105 mmol/L (98-107) 07/05/20 04:30 Carbon Dioxide 25.3 mmol/L (21-32) 07/05/20 04:30 BUN 7 mg/dL (7-18) 07/05/20 04:30 Creatinine 0.80 mg/dL (0.55-1.02) 07/05/20 04:30 Est GFR (MDRD) Af Amer > 60 (>60) 07/05/20 04:30 Est GFR (MDRD) Non-Af > 60 (>60) 07/05/20 04:30 Glucose 80 mg/dL (65-99) 07/05/20 04:30 Calcium 8.3 mg/dL (8.5-10.1) L 07/05/20 04:30 Corrected Calcium 9.5 mg/dL (8.5-10.1) 07/05/20 04:30 Magnesium 2.2 mg/dL (1.7-2.9) 07/03/20 04:30 Ferritin 376 ng/mL (8-252) H 07/03/20 04:30 Total Bilirubin 0.40 mg/dL (0.2-1.0) 07/05/20 04:30 AST 24 Units/L (15-37) 07/05/20 04:30 ALT 32 Units/L (12-78) 07/05/20 04:30 Alkaline Phosphatase 48 Units/L (46-116) 07/05/20 04:30 C-Reactive Protein 48.30 mg/L (0-3.0) H 07/03/20 04:30 B-Natriuretic Peptide 44.6 pg/mL (0-79) 07/02/20 04:10 Total Protein 5.9 g/dL (6.4-8.2) L 07/05/20 04:30 Albumin 2.5 g/dL (3.4-5.0) L 07/05/20 04:30 Globulin 3.4 g/dL (2.5-4.5) 07/05/20 04:30 Albumin/Globulin Ratio 0.7 Ratio (1.1-2.1) L 07/05/20 04:30 Specimen Type Clean catch urine 07/02/20 06:29 Urine Color Yellow (YELLOW) 07/02/20 06:29 Urine Appearance Hazy (CLEAR) 07/02/20 06:29 Urine pH 5.0 (5.0 - 8.0) 07/02/20 06:29 Ur Specific [place] 1.025 (1.000-1.030) 07/02/20 06:29 Urine Protein 2+ (NEGATIVE) 07/02/20 06:29 Urine Glucose (UA) Negative (NEGATIVE) 07/02/20 06:29 Urine Ketones 4+ (NEGATIVE) 07/02/20 06:29 Urine Occult Blood 1+ (NEGATIVE) 07/02/20 06:29 Urine Nitrite Negative (NEGATIVE) 07/02/20 06:29 Urine Bilirubin 1+ (NEGATIVE) 07/02/20 06:29 Urine Urobilinogen 1+ (NORMAL) 07/02/20 06:29 Ur Leukocyte Esterase 2+ (NEGATIVE) 07/02/20 06:29 Urine RBC 3-5 /HPF (0-3) A 07/02/20 06:29 Urine WBC 10-20 /HPF (0-5) A 07/02/20 06:29 Ur Squamous Epith Cells Few /HPF (NEGATIVE) 07/02/20 06:29 Ur Renal Epithelial Cell Few /HPF (NEGATIVE) 07/02/20 06:29 Urine Bacteria Trace /HPF (NEGATIVE) 07/02/20 06:29 Hyaline Casts Few /LPF (NEGATIVE) 07/02/20 06:29 Ur Culture Indicated? Yes/culture set up 07/02/20 06:29 SARS CoV-2 RNA Rapid ODESSA Positive (NEGATIVE) A 07/01/20 18:30 Tissue Pathology To follow 07/04/20 12:33 - Plan (1) Intractable nausea and vomiting Status: Acute Plan: NS AT 125 ML/HR, PEPCID 20MG IV Q12H, PROTONIX 40MG IV BID, REGLAN 10MG IV ACHS, PHENERGAN 12.5MG IM Q6H PRN, ZOFRAN 4MG IV Q8H PRN, ZOFRAN COCKTAIL Q8H PRN. SOFT DIET, ADVANCE TOLERATED. (2) Abdominal pain Status: Acute Qualifiers: Abdominal location: generalized Qualified Code(s): R10.84 - Generalized abdominal pain (3) COVID-19 Status: Acute
[2020-07-05] MEDS: COLACE CAP 100 MG PO SCH (21:27)
[2020-07-05] MEDS: MILK OF MAGNESIA PO SCH (21:28)
[2020-07-05] MEDS: RESTORIL CAP 15 MG PO PRN (21:31)
[2020-07-06] MEDS: NS 1000 ML 1,000 ML IV SCH (04:25)
[2020-07-06 05:44] LABS: BASOPHILS % (AUTO) 0.8 % (0.2-1.0); EOSINOPHILS # (AUTO) 0.2 x10^3/uL (0.0-0.2); EOSINOPHILS % (AUTO) 5.3 % (0.9-2.9); HEMATOCRIT 35.4 % (36.0-47.0); HEMOGLOBIN 11.7 g/dL (12.0-16.0); LYMPHOCYTES # (AUTO) 1.6 X10^3/uL (1.3-2.9); LYMPHOCYTES % (AUTO) 35.6 % (21.0-51.0); MEAN CORPUSCULAR HGB CONC 33.2 g/dL (33.0-35.0); MEAN CORPUSCULAR VOLUME 87.2 fL (80.0-100.0); MEAN PLATELET VOLUME 10.6 fL (7.4-11.0); MONOCYTES # (AUTO) 0.6 x10^3/uL (0.3-0.8); NEUTROPHILS % (AUTO) 45.3 % (42.0-75.0); PLATELET COUNT 105 X10^3/uL (150.0-450.0); RED BLOOD COUNT 4.05 X10^6/uL (3.5-5.4); RED CELL DISTRIBUTION WIDTH 13.3 % (11.6-16.5); WHITE BLOOD COUNT 4.4 X10^3/uL (3.6-10.0)
[2020-07-06 05:55] LABS: ALANINE AMINOTRANSFERASE 29 Units/L (12-78); ALBUMIN 2.6 g/dL (3.4-5.0); ALKALINE PHOSPHATASE 51 Units/L (46-116); ASPARTATE AMINO TRANSFERASE 18 Units/L (15-37); BLOOD UREA NITROGEN 8 mg/dL (7-18); CALCIUM 8.5 mg/dL (8.5-10.1); CARBON DIOXIDE 27.6 mmol/L (21-32); CHLORIDE 105 mmol/L (98-107); COR CA(FOR HYPOALB) 9.6 mg/dL (8.5-10.1); CREATININE 0.83 mg/dL (0.55-1.02); SODIUM 140 mmol/L (136-145); TOTAL PROTEIN 6.2 g/dL (6.4-8.2); eGFR NON BLACK RACES > 60 (>60)
[2020-07-06] MEDS: REGLAN INJ 10 MG VIAL IVP SCH ×2 (06:22→11:30)
[2020-07-06] MEDS: PEPCID 20 MG IV PREMIX* 20 MG/50 ML BAG IV SCH (08:50)
[2020-07-06] MEDS: PROTONIX INJ 40 MG VIAL IVP SCH (08:50)
[2020-07-06] MEDS: INVANZ INJ 1 GM VIAL 1 GM in NS 100 ML IV + SPIKE MINIBAG* 100 ML IV SCH (09:40)
[2020-07-06] MEDS: HYZAAR 50/12.5 MG PO SCH (10:03)
[2020-07-06 12:05] VITALS: BP 129/61
== END 2020-07-06 12:45 | disposition home or self-care (01) | DRG 178 ==
LOC: OBS → MED/SURG 19:11 → ICU 07-03 20:58
PROVIDERS: ADMIT Internal Medicine; ATTEND Internal Medicine
DX: U07.1 COVID-19; E86.0 Dehydration; K44.9 Diaphragmatic hernia without obstruction or gangrene; R73.09 Other abnormal glucose; I10 Essential (primary) hypertension; R11.2 Nausea with vomiting, unspecified; K22.10 Ulcer of esophagus without bleeding; R79.82 Elevated C-reactive protein (CRP); R10.84 Generalized abdominal pain; R79.1 Abnormal coagulation profile; K29.00 Acute gastritis without bleeding; F41.8 Other specified anxiety disorders; R79.89 Other specified abnormal findings of blood chemistry

== ENCOUNTER 2020-08-12 10:32 | Observation (INO) ==
[2020-08-12 11:01] VITALS: BMI 25.0
--- NOTE | 2020-08-12 11:32 | DR.NAUSEAF ---
HPI Time Seen Time Seen by Provider: 08/12/20 11:24 Primary Care Physician Primary Care Physician: Panda HPI Comment HPI Comment: PATIENT IS 74YR OLD FEMALE IN ER WITH NAUSEA, VOMITING, UPPER ABDOMINAL PAIN THAT IS GETTING WORSE. PATIENT IS WEAK AND FATIGUE. NO FEFER OR DIARRHEA OR DYSURIA. NOT HOLDING DOWN FLUID OR MEDICATION. HISTRY GERD AND DIATA L HERNIA. BURNING ABDOMINAL PAIN 6/10 RADIATIG TI THE BACK . SIMILAR PAIN IN PAST ALSO. Complaints Chief Complaint Doctors Comments: NAUSEA, VOMITING AND WEAKNESS TIMES Chief Complaint:: Pt c/o n/v, dehydration, abdnormal liver function and hiatal hernia. Pt states she has covid in June and has GI issues since. COVID-19 Coronavirus risk:travel/contact w/high risk person: No Has patient experienced Coronavirus symptoms: No Reviewed Nurses Notes Reviewed: Yes Source History Provided: Patient Mode of Arrival Mode of Arrival: Ambulatory Timing Onset of Chief Complaint: 08/12/20 Duration Duration: HRS Context Onset: Spontaneous Recent: None History of: None Quality Quality: Food Particles Associated Signs and Symptoms Abdominal Pain Quality: Burning Abdominal Pain Location: Epigastric, RUQ and LUQ Symptoms: Abdominal Pain PMH PMH Past Medical History: Yes Past Medical History: Anxiety, GERD, Hypertension and Sleep Apnea Past Surgical History: Yes Surgical History: Hysterectomy Past Surgical History Comment: bladder tact Family History History of Family Medical Conditions: Yes Family Medical History: Cancer and Hypertension Social History Does patient currently use any type of tobacco product: No Have you used tobacco products in the last 12 months: No Type of Tobacco Use: None Does any household member use tobacco: No Alcohol Use: None Do you use any recreational Drugs:: No Lives With: Family Lives Where: Home Travel Risk Coronavirus risk:travel/contact w/high risk person: No Has patient experienced Coronavirus symptoms: No Infectious screening In the last 2 months have you had wt loss of >10#?: NO Have you had fever, night sweats or hemotysis?: No Have you traveled outside the country in the last 6 months?: No Isolation: Standard ROS Review of Systems Constitutional: See HPI, Weakness and Fatigue; negative Fever Eyes: No Symptoms Reported and See HPI ENTM: No Symptoms Reported and See HPI; negative Nose Discharge and Nose Congestion Respiratoy: No Symptoms Reported and See HPI; negative Moist Cough, Short of Breath and Wheezing Cardiovascular: No Symptoms Reported and See HPI; negative Chest Pain Gastrointestinal/Abdominal: See HPI, Abdominal Pain, Nausea and Vomiting; negative Diarrhea Genitourinary: No Symptoms Reported and See HPI; negative Dysuria, Frequency and Hematuria Neurological: See HPI and Weakness; negative Headache and Dizziness Musculoskeletal: No Symptoms Reported and See HPI; negative Back Pain and Muscle Pain Integumentary: No Symptoms Reported and See HPI; negative Change in Color, Rash and Juandice Hematologic/Lymphatic: No Symptoms Reported and See HPI; negative Easy Bruising and Swollen Glands Endocrine: See HPI and Increased Thirst; negative Increased Urine Psychiatric: No Symptoms Reported and See HPI All Other Systems: Reviewed and Negative PE Vital Signs Vitals: Temperature 98.6 F Pulse Rate 92 Respiratory Rate 16 Blood Pressure [Left Arm] 167/72 Blood Pressure 167/72 O2 Sat by Pulse Oximetry 98 General Limitations: No Limitations General Appearance: Alert and In No Apparent Distress Head Head Exam: Normal Inspection and Atraumatic Eyes Eye exam: Normal Appearance and PERRL; negative Scleral Icterus and Conjunctival Injection ENT ENT Exam: Normal Exam, Normal Oropharynx, Normal External Ear Exam and TM's Normal Bilaterally Neck Neck Exam: Normal Inspection and Trachea Midline; negative Tenderness and Lymphadenopathy Chest Chest Inspection: Normal Inspection and Symmetric Chest Wall Rise; negative Tenderness Respiratory Respiratory Exam: Normal Lung Sounds Bilat; negative Accessory Muscle Use, Chest Wall Tenderness and Respiratory Distress Respiratory Exam: Bilateral: Clear to Auscultation Cardiovascular Cardiovascular Exam: Regular Rate, Normal Rhythm and Normal Heart Sounds; negative Systolic Murmur and Diastolic Murmur Abdominal Exam Abdominal Exam: Normal Inspection, Normal Bowel Sounds and Soft; negative Tenderness Rectal Rectal Exam: Deferred External Exam: Female: Deferred : Speculum Exam (Female): Deferred : Bimanual Exam (female): Deferred Extremities Extremities Exam: Normal Inspection and Normal Capillary Refill; negative Tenderness, Edema and Calf Tenderness Back Back Exam: Normal Inspection; negative (R) CVA Tenderness and (L) CVA Tenderness Neurologic Neurological Exam: Alert, Oriented X3 and CN II-XII Intact; negative Motor Sensory Deficit Psychiatric Psychiatric Exam: Normal Affect and Normal Mood Skin Skin Exam: Dry MDM Differential Diagnosis Differential Diagnosis: Considerations may Include:: Bowel Obstruction, Cholecystitis, Gastroenteritis, Inflammatory BD, Pancreatitis, PUD, Urinary Tract Infection and Urolithiasis COURSE Treatment Treatment: SEE ORDERS. NS 1L IV BOLUS, ZOFRAN 4MG IV, PEPCID 10MG IVPB, REGLAN 10MG IV AND HYDRALAZINE 20MG IV IN ER. NAUSEA AND ELEVATED BP IMPROVED Reevaluation 1st: Improved 2nd: Improved Consultation Consultation Comments: DISCUSSED PATIENT WITH DR. COLE. SHE WILL ADMIT PATIENT. Education/Counseling Education/Counseling: Patient Educated On: Diagnosis ROR Labs Reviewed Laboratory Results Reviewed?: Yes Result Diagrams: 08/15/20 05:19 08/15/20 05:19 Laboratory: WBC 11.8 X10^3/uL (3.6-10.0) H 08/12/20 11:40 RBC 4.93 X10^6/uL (3.5-5.4) 08/12/20 11:40 Hgb 14.5 g/dL (12.0-16.0) 08/12/20 11:40 Hct 43.5 % (36.0-47.0) 08/12/20 11:40 MCV 88.2 fL (80.0-100.0) 08/12/20 11:40 MCH 29.4 pg (27.0-34.0) 08/12/20 11:40 MCHC 33.3 g/dL (33.0-35.0) 08/12/20 11:40 RDW 13.8 % (11.6-16.5) 08/12/20 11:40 Plt Count 292 X10^3/uL (150.0-450.0) 08/12/20 11:40 MPV 8.3 fL (7.4-11.0) 08/12/20 11:40 Neut % (Auto) 79.0 % (42.0-75.0) H 08/12/20 11:40 Lymph % (Auto) 12.4 % (21.0-51.0) L 08/12/20 11:40 [place] % (Auto) 7.7 % (0.0-13.0) 08/12/20 11:40 Eos % (Auto) 0.2 % (0.9-2.9) L 08/12/20 11:40 Baso % (Auto) 0.7 % (0.2-1.0) 08/12/20 11:40 Neut # (Auto) 9.4 x10^3/uL (2.2-4.8) H 08/12/20 11:40 Lymph # (Auto) 1.5 X10^3/uL (1.3-2.9) 08/12/20 11:40 [place] # (Auto) 0.9 x10^3/uL (0.3-0.8) H 08/12/20 11:40 Eos # (Auto) 0.0 x10^3/uL (0.0-0.2) 08/12/20 11:40 Baso # (Auto) 0.1 X10^3/uL (0.0-0.1) 08/12/20 11:40 Absolute Nucleated RBC 0.1 /100WBC 08/12/20 11:40 Sodium 138 mmol/L (136-145) 08/12/20 11:40 Corrected Sodium 139 mmol/L (136-145) 08/12/20 11:40 Potassium 3.9 mmol/L (3.5-5.1) 08/12/20 11:40 Chloride 100 mmol/L (98-107) 08/12/20 11:40 Carbon Dioxide 26.7 mmol/L (21-32) 08/12/20 11:40 BUN 26 mg/dL (7-18) H 08/12/20 11:40 Creatinine 1.11 mg/dL (0.55-1.02) H 08/12/20 11:40 Est GFR (MDRD) Af Amer > 60 (>60) 08/12/20 11:40 Est GFR (MDRD) Non-Af 51 (>60) L 08/12/20 11:40 Glucose 133 mg/dL (65-99) H 08/12/20 11:40 Calcium 9.8 mg/dL (8.5-10.1) 08/12/20 11:40 Corrected Calcium TNP 08/12/20 11:40 Total Bilirubin 0.80 mg/dL (0.2-1.0) 08/12/20 11:40 AST 14 Units/L (15-37) L 08/12/20 11:40 ALT 19 Units/L (12-78) 08/12/20 11:40 Alkaline Phosphatase 96 Units/L (46-116) 08/12/20 11:40 Total Protein 8.7 g/dL (6.4-8.2) H 08/12/20 11:40 Albumin 4.0 g/dL (3.4-5.0) 08/12/20 11:40 Globulin 4.7 g/dL (2.5-4.5) H 08/12/20 11:40 Albumin/Globulin Ratio 0.9 Ratio (1.1-2.1) L 08/12/20 11:40 Amylase 47 Units/L (25-115) 08/12/20 11:40 Lipase 202 Units/L (73-393) 08/12/20 11:40 SARS CoV-2 RNA Rapid ODESSA Negative (NEGATIVE) 08/12/20 16:20 XRAY XRAY Interpreted by: Radiologist (REPORT NOTED AND DISCUSSED WITH PATIENT.) and Self Opioid Opioid Risk Tool Age (Heri box if 16-45): No History of Preadolescent Sexual Abuse: No Total: 0 Total Score Risk Category: Low Risk Copyright: Garry BOWMAN predicting aberrant behaviors Diagnosis Discharge Problem: Gastric outlet obstruction, Nausea & vomiting Instructions Instructions: Laparoscopic Cholecystectomy, Care After Hypertension, Sloq-kt-Qron Gallbladder Eating Plan Fat and Cholesterol Restricted Eating Plan, Puaa-bf-Dosc Forms: Excuse From Work or School Precautions for COVID19 Patient Portal Social Distancing
[2020-08-12] MEDS ORDERED: NS 1000 ML 1,000 ML IV ONE (11:33)
[2020-08-12] MEDS ORDERED: PEPCID 20 MG IV PREMIX* 20 MG/50 ML BAG IV ONE ×2 (11:33→11:57)
[2020-08-12] MEDS ORDERED: ZOFRAN INJ 4 MG VIAL ONE (11:33)
[2020-08-12] MEDS ORDERED: ZOFRAN INJ 4 MG VIAL IVP ONE ×2 (11:33→15:55)
[2020-08-12] MEDS ORDERED: NS 1000 ML 1,000 ML ONE (11:33)
[2020-08-12 11:57] LABS: BASOPHILS # (AUTO) 0.1 X10^3/uL (0.0-0.1); BASOPHILS % (AUTO) 0.7 % (0.2-1.0); EOSINOPHILS % (AUTO) 0.2 % (0.9-2.9); HEMATOCRIT 43.5 % (36.0-47.0); HEMOGLOBIN 14.5 g/dL (12.0-16.0); LYMPHOCYTES # (AUTO) 1.5 X10^3/uL (1.3-2.9); LYMPHOCYTES % (AUTO) 12.4 % (21.0-51.0); MEAN CORPUSCULAR HEMOGLOBIN 29.4 pg (27.0-34.0); MEAN CORPUSCULAR HGB CONC 33.3 g/dL (33.0-35.0); MEAN CORPUSCULAR VOLUME 88.2 fL (80.0-100.0); MEAN PLATELET VOLUME 8.3 fL (7.4-11.0); MONOCYTES # (AUTO) 0.9 x10^3/uL (0.3-0.8); MONOCYTES % (AUTO) 7.7 % (0.0-13.0); NEUTROPHILS # (AUTO) 9.4 x10^3/uL (2.2-4.8); PLATELET COUNT 292 X10^3/uL (150.0-450.0); RED BLOOD COUNT 4.93 X10^6/uL (3.5-5.4); RED CELL DISTRIBUTION WIDTH 13.8 % (11.6-16.5); WHITE BLOOD COUNT 11.8 X10^3/uL (3.6-10.0)
[2020-08-12 12:11] LABS: ALANINE AMINOTRANSFERASE 19 Units/L (12-78); ALKALINE PHOSPHATASE 96 Units/L (46-116); AMYLASE 47 Units/L (25-115); ASPARTATE AMINO TRANSFERASE 14 Units/L (15-37); BLOOD UREA NITROGEN 26 mg/dL (7-18); CALCIUM 9.8 mg/dL (8.5-10.1); CARBON DIOXIDE 26.7 mmol/L (21-32); CHLORIDE 100 mmol/L (98-107); COR NA(FOR HYPERGLY) 139 mmol/L (136-145); CREATININE 1.11 mg/dL (0.55-1.02); LIPASE 202 Units/L (73-393); SODIUM 138 mmol/L (136-145); TOTAL PROTEIN 8.7 g/dL (6.4-8.2); eGFR NON BLACK RACES 51 (>60)
[2020-08-12] MEDS ORDERED: APRESOLINE INJ 20 MG VIAL ONE (14:01)
[2020-08-12] MEDS ORDERED: APRESOLINE INJ 20 MG VIAL IVP ONE (14:05)
[2020-08-12] MEDS ORDERED: NS 100 ML IV 100 ML IV ONE (14:34)
--- NOTE | 2020-08-12 15:25 | CT ---
HISTORYN/V, EPIGASTRIC ABD PAINSTUDYABDOMEN/PELVIS WITH CONCOMPARISONCT from 07/03/2020.TECHNIQUEAxial CT images of the abdomen and pelvis following administration of intravenous contrast. Coronal and sagittal images are obtained. Dose reduction techniques including Automated Exposure Control (AEC) and adjustment of mA and kV were utilized.FINDINGSLower chest: Stable large hiatal hernia. The stomach remains intrathoracic. Lung bases are clear, aside from passive atelectasis in the left lung base related to hernia.Liver: NormalGallbladder and Bile Ducts:NormalPancreas: NormalSpleen: NormalAdrenals: NormalKidneys: Small right renal cyst. No evidence of hydronephrosis.Bladder: NormalReproductive structures: Hysterectomy. Stable small left adnexal cystBowel and Stomach: No evidence of bowel obstruction or inflammation. No appendicitis.Lymph Nodes: No significant lymphadenopathyVasculature: Abdominal aorta and branching vessels are normal in caliberOther: No free air, free fluid, or focal fluid collectionOsseous Structures: No acute osseous findings. Scattered degenerative changes the spine are again notedIMPRESSION1. No acute findings in the abdomen or pelvis.2. Stable large hiatal hernia. Other stable chronic and incidental findings as aboveElectronically signed by: Christofer Cobian (Aug 12, 2020 15:24:23)
[2020-08-12] MEDS ORDERED: REGLAN INJ 10 MG VIAL IVP ONE (16:04)
[2020-08-12] MEDS ORDERED: REGLAN INJ 10 MG VIAL ONE (16:16)
[2020-08-12] MEDS ORDERED: ZOFRAN INJ 4 MG VIAL IVP PRN (18:13)
[2020-08-12] MEDS ORDERED: PEPCID 20 MG IV PREMIX* 20 MG/50 ML BAG IV PRN (18:13)
[2020-08-12] MEDS ORDERED: REGLAN INJ 10 MG VIAL IVP PRN (18:13)
[2020-08-12] MEDS: NS 1000 ML 1,000 ML IV SCH (18:29)
[2020-08-13] MEDS: NS 1000 ML 1,000 ML IV SCH ×5 (02:45→20:32)
[2020-08-13 05:58] LABS: BASOPHILS % (AUTO) 0.6 % (0.2-1.0); EOSINOPHILS # (AUTO) 0.1 x10^3/uL (0.0-0.2); EOSINOPHILS % (AUTO) 1.7 % (0.9-2.9); HEMATOCRIT 33.9 % (36.0-47.0); HEMOGLOBIN 11.5 g/dL (12.0-16.0); LYMPHOCYTES # (AUTO) 1.7 X10^3/uL (1.3-2.9); LYMPHOCYTES % (AUTO) 27.8 % (21.0-51.0); MEAN CORPUSCULAR HGB CONC 33.9 g/dL (33.0-35.0); MEAN CORPUSCULAR VOLUME 88.6 fL (80.0-100.0); MEAN PLATELET VOLUME 8.1 fL (7.4-11.0); MONOCYTES # (AUTO) 0.6 x10^3/uL (0.3-0.8); MONOCYTES % (AUTO) 8.9 % (0.0-13.0); NEUTROPHILS # (AUTO) 3.8 x10^3/uL (2.2-4.8); PLATELET COUNT 212 X10^3/uL (150.0-450.0); RED BLOOD COUNT 3.83 X10^6/uL (3.5-5.4); RED CELL DISTRIBUTION WIDTH 13.8 % (11.6-16.5); WHITE BLOOD COUNT 6.3 X10^3/uL (3.6-10.0)
[2020-08-13 06:34] LABS: ALANINE AMINOTRANSFERASE 15 Units/L (12-78); ALBUMIN 3.1 g/dL (3.4-5.0); ALKALINE PHOSPHATASE 69 Units/L (46-116); AMYLASE 41 Units/L (25-115); ASPARTATE AMINO TRANSFERASE 14 Units/L (15-37); BLOOD UREA NITROGEN 20 mg/dL (7-18); CALCIUM 8.7 mg/dL (8.5-10.1); CARBON DIOXIDE 24.7 mmol/L (21-32); CHLORIDE 107 mmol/L (98-107); COR CA(FOR HYPOALB) 9.4 mg/dL (8.5-10.1); CREATININE 0.81 mg/dL (0.55-1.02); LIPASE 228 Units/L (73-393); SODIUM 141 mmol/L (136-145); TOTAL PROTEIN 6.5 g/dL (6.4-8.2); eGFR NON BLACK RACES > 60 (>60)
[2020-08-13] MEDS: PROTONIX INJ 40 MG VIAL IVP SCH ×2 (08:35→20:43)
--- NOTE | 2020-08-13 11:42 | US ---
HISTORYRUQ PAIN, ABN LFTSSTUDYRight upper quadrant ultrasoundCOMPARISONCT from previous dayTECHNIQUEMultiple ferreira scale and color flow Doppler images of the right upper quadrant of the abdomen were obtained with image documentation.FINDINGSNo hepatic abnormality is seen. Hepatopetal portal venous flow is seen on Doppler ultrasound.Sludge is seen in the gallbladder and the gallbladder wall is mildly thickened measuring 4.1 mm. There is a positive sonographic Stevenson's sign and findings are worrisome for acute cholecystitis. No biliary ductal dilation.Visualized portions of the pancreas appear normal.No right renal abnormality. Right kidney measures 10.5 cm in length.Visualized portions of the IVC appear normal.IMPRESSIONSludge is seen in the gallbladder with possible mild changes of acute cholecystitis. Confirmation with nuclear medicine HIDA scan may be useful.Electronically signed by: Rolando Giang (Aug 13, 2020 11:40:04)
--- NOTE | 2020-08-13 14:33 | DR.H&P ---
H&P History & Physical for Day of: H&P Date: 08/13/20 Chief Complaint Chief Complaint: nausea, vomiting and abdominal pain Allergies Allergies Allergy/AdvReac Type Severity Reaction Status Date / Time No Known Drug Allergies Allergy Verified 04/19/18 10:27 History of Present Illness History of Present Illness: Ms. Quintanilla is a 74y/o female with a PMH of hiatal h ernia, gastritis, distal esophageal ulcer, HTN and HLD presented with intractable nausea, vomiting and abdominal pain. Patient states her Sx started over a week ago and have worsened. She did see Dr. Aleman in the clinic last and was started on Reglan but over the weekend she continued to have more nausea and vomiting. She states she was also told that her LFTs were slightly elevated so she was scheduled for outpatient liver U/S. She was not able to keep anything down. She denies any trouble swallowing. She was admitted in Jun for COVID infection and had EGD done then. She has been taking Protonix. She has not had any more vomiting overnight. Denies diarrhea or melena. She has a hx of co nstipation. Labs: WBC 6.3 Hgb 11.5 BUN/Cr: 20/0.81 Lipase 228 AST/ALT normal CTAP: stable large hiatal hernia, no acute abdominal process. No infection. Dr Aleman was contacted from the ER and advised to admit for hydration and IV Protonix and he will see the patient in the AM. Plan: continue gentle hydration. DC Pepcid, start IV Protonix 40 mg BID. Will get RUQ U/S to evaluate gall bladder. Continue Zofran and NPO status until seen by GI. Hold off on resuming home medications until NPO. Add SCDs. Check anemia panel and FOBT. Monitor AM labs/imaging. Past Medical History Past Medical History: Anxiety, GERD, Hypertension and Sleep Apnea Additional Medical History: IBS, HIATAL HERNIA Past Surgical History Surgical History: Hysterectomy and Other Additional Surgical History: Bladder tack-approximately 10 years ago Family History Family Medical History: Cancer and Coronary Artery Disease Social History Does patient currently use any type of tobacco product: No Have you used tobacco products in the last 12 months: No Type of Tobacco Use: None Does any household member use tobacco: No Alcohol Use: None Drug Use: None Prescription drug monitoring program results: PDMP was not reviewed Medications Home Medications: No Known Drug Allergies Allergy (Verified 04/19/18 10:27) CONTINUE taking the following medications bisoprolol fumarate 5 mg PO DAILY 08/12/20 [History] cephalexin 250 mg PO HS 08/12/20 [History] sertraline 100 mg PO DAILY 08/12/20 [History] Labs Result Diagrams: 08/13/20 05:19 08/13/20 05:19 Labs: Laboratory WBC 6.3 X10^3/uL (3.6-10.0) 08/13/20 05:19 RBC 3.83 X10^6/uL (3.5-5.4) 08/13/20 05:19 Hgb 11.5 g/dL (12.0-16.0) L D 08/13/20 05:19 Hct 33.9 % (36.0-47.0) L 08/13/20 05:19 MCV 88.6 fL (80.0-100.0) 08/13/20 05:19 MCH 30.0 pg (27.0-34.0) 08/13/20 05:19 MCHC 33.9 g/dL (33.0-35.0) 08/13/20 05:19 RDW 13.8 % (11.6-16.5) 08/13/20 05:19 Plt Count 212 X10^3/uL (150.0-450.0) 08/13/20 05:19 MPV 8.1 fL (7.4-11.0) 08/13/20 05:19 Neut % (Auto) 61.0 % (42.0-75.0) 08/13/20 05:19 Lymph % (Auto) 27.8 % (21.0-51.0) 08/13/20 05:19 [place] % (Auto) 8.9 % (0.0-13.0) 08/13/20 05:19 Eos % (Auto) 1.7 % (0.9-2.9) 08/13/20 05:19 Baso % (Auto) 0.6 % (0.2-1.0) 08/13/20 05:19 Neut # (Auto) 3.8 x10^3/uL (2.2-4.8) 08/13/20 05:19 Lymph # (Auto) 1.7 X10^3/uL (1.3-2.9) 08/13/20 05:19 [place] # (Auto) 0.6 x10^3/uL (0.3-0.8) 08/13/20 05:19 Eos # (Auto) 0.1 x10^3/uL (0.0-0.2) 08/13/20 05:19 Baso # (Auto) 0.0 X10^3/uL (0.0-0.1) 08/13/20 05:19 Absolute Nucleated RBC 0.0 /100WBC 08/13/20 05:19 Sodium 141 mmol/L (136-145) 08/13/20 05:19 Corrected Sodium TNP 08/13/20 05:19 Potassium 3.8 mmol/L (3.5-5.1) 08/13/20 05:19 Chloride 107 mmol/L (98-107) 08/13/20 05:19 Carbon Dioxide 24.7 mmol/L (21-32) 08/13/20 05:19 BUN 20 mg/dL (7-18) H 08/13/20 05:19 Creatinine 0.81 mg/dL (0.55-1.02) 08/13/20 05:19 Est GFR (MDRD) Af Amer > 60 (>60) 08/13/20 05:19 Est GFR (MDRD) Non-Af > 60 (>60) 08/13/20 05:19 Glucose 86 mg/dL (65-99) 08/13/20 05:19 Calcium 8.7 mg/dL (8.5-10.1) 08/13/20 05:19 Corrected Calcium 9.4 mg/dL (8.5-10.1) 08/13/20 05:19 Total Bilirubin 0.70 mg/dL (0.2-1.0) 08/13/20 05:19 AST 14 Units/L (15-37) L 08/13/20 05:19 ALT 15 Units/L (12-78) 08/13/20 05:19 Alkaline Phosphatase 69 Units/L (46-116) 08/13/20 05:19 Total Protein 6.5 g/dL (6.4-8.2) 08/13/20 05:19 Albumin 3.1 g/dL (3.4-5.0) L 08/13/20 05:19 Globulin 3.4 g/dL (2.5-4.5) 08/13/20 05:19 Albumin/Globulin Ratio 0.9 Ratio (1.1-2.1) L 08/13/20 05:19 Amylase 41 Units/L (25-115) 08/13/20 05:19 Lipase 228 Units/L (73-393) 08/13/20 05:19 SARS CoV-2 RNA Rapid ODESSA Negative (NEGATIVE) 08/12/20 16:20 Review of Systems Constitutional: No Symptoms Reported Eyes: No Symptoms Reported ENT: No Symptoms Reported Respiratory: No Symptoms Reported Cardiovascular: No Symptoms Reported Gastrointestinal: Nausea, Vomiting, Abdominal Pain and Constipation Genitourinary: No Symptoms Reported Musculoskeletal: No Symptoms Reported Skin: No Symptoms Reported Neurological: No Symptoms Reported Physical Exam Vital Signs: Temperature 98.3 F Pulse Rate [Apical] 63 Pulse Rate 92 Respiratory Rate 18 Blood Pressure [Right Arm] 148/67 Blood Pressure [Left Arm] 167/72 Blood Pressure 167/72 O2 Sat by Pulse Oximetry 96 Oriented: Normal Eyes: Normal Ear: Normal Nose: Normal Throat: Normal Respiratory: Clear Throughout Cardiovascular: Normal Auscultation: Bowel Sounds: Normal Tenderness: RUQ, Epigastric and Mild; negative Rebound and Guarding Skin: Normal Musculoskeletal: Normal Psychiatric: Normal Mood Description: Calm and Appropriate Affect: Normal Speech Pattern: Clear and Appropriate Assessment/Plan (1) Intractable nausea and vomiting: Status: Acute (2) Abdominal pain: Qualifiers: Abdominal location: generalized Qualified Code(s): R10.84 - Generalized abdominal pain Status: Acute (3) Hiatal hernia: Status: Acute (4) Anemia: Qualifiers: Anemia type: unspecified type Qualified Code(s): D64.9 - Anemia, unspecified Status: Acute (5) Gastric outlet obstruction: Status: Acute (6) HTN (hypertension): Qualifiers: Hypertension type: essential hypertension Qualified Code(s): I10 - Essential (primary) hypertension Status: Acute (7) GERD (gastroesophageal reflux disease): Qualifiers: Esophagitis presence: esophagitis presence not specified Qualified Code(s): K21.9 - Gastro-esophageal reflux disease without esophagitis Status: Acute Review H&P Reviewed: Yes Patient was examined?: Yes
[2020-08-14] MEDS: NS 1000 ML 1,000 ML IV SCH ×2 (04:58→04:59)
[2020-08-14 06:07] LABS: BASOPHILS % (AUTO) 0.8 % (0.2-1.0); EOSINOPHILS # (AUTO) 0.1 x10^3/uL (0.0-0.2); EOSINOPHILS % (AUTO) 3.1 % (0.9-2.9); HEMATOCRIT 31.3 % (36.0-47.0); HEMOGLOBIN 10.5 g/dL (12.0-16.0); LYMPHOCYTES # (AUTO) 1.4 X10^3/uL (1.3-2.9); LYMPHOCYTES % (AUTO) 31.1 % (21.0-51.0); MEAN CORPUSCULAR HEMOGLOBIN 29.8 pg (27.0-34.0); MEAN CORPUSCULAR HGB CONC 33.4 g/dL (33.0-35.0); MEAN CORPUSCULAR VOLUME 89.1 fL (80.0-100.0); MEAN PLATELET VOLUME 8.2 fL (7.4-11.0); MONOCYTES # (AUTO) 0.3 x10^3/uL (0.3-0.8); MONOCYTES % (AUTO) 7.5 % (0.0-13.0); NEUTROPHILS # (AUTO) 2.6 x10^3/uL (2.2-4.8); NEUTROPHILS % (AUTO) 57.5 % (42.0-75.0); PLATELET COUNT 172 X10^3/uL (150.0-450.0); RED BLOOD COUNT 3.51 X10^6/uL (3.5-5.4); RED CELL DISTRIBUTION WIDTH 13.5 % (11.6-16.5); WHITE BLOOD COUNT 4.5 X10^3/uL (3.6-10.0)
[2020-08-14 06:33] LABS: ALANINE AMINOTRANSFERASE 18 Units/L (12-78); ALBUMIN 2.7 g/dL (3.4-5.0); ALKALINE PHOSPHATASE 60 Units/L (46-116); ASPARTATE AMINO TRANSFERASE 17 Units/L (15-37); BLOOD UREA NITROGEN 12 mg/dL (7-18); CALCIUM 8.3 mg/dL (8.5-10.1); CARBON DIOXIDE 23.9 mmol/L (21-32); CHLORIDE 109 mmol/L (98-107); COR CA(FOR HYPOALB) 9.3 mg/dL (8.5-10.1); CREATININE 0.61 mg/dL (0.55-1.02); SODIUM 141 mmol/L (136-145); TOTAL PROTEIN 5.8 g/dL (6.4-8.2); eGFR NON BLACK RACES > 60 (>60)
[2020-08-14] MEDS ORDERED: POTASSIUM CHL 60 MEQ/NS 0.45% 500 ML IV PRN (07:42)
[2020-08-14] MEDS ORDERED: POTASSIUM CHL 40 MEQ/NS 0.45% 500 ML IV PRN (07:42)
[2020-08-14] MEDS ORDERED: K-RIDER 10 MEQ/NS 100 ML 10 MEQ/100 ML BAG IV PRN (07:42)
--- NOTE | 2020-08-14 08:03 | RAD ---
HISTORYPRE-OP GB REMOVALSTUDYCHEST x-ray, 1 VIEWCOMPARISONCT 07/02/2020FINDINGSLarge hiatus hernia is seen with associated atelectasis. His is similar to prior study. Possible mild underlying COPD. Heart is likely normal in size. No pneumothorax or pleural effusion is seen.IMPRESSIONLarge hiatus hernia. 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
[2020-08-14] MEDS ORDERED: ANCEF 1 GRAM IV PREMIX* 1 G/50 ML BAG IV ONE (09:11)
[2020-08-14] MEDS ORDERED: LR 1000 ML IV 1,000 ML IV ONE (09:11)
[2020-08-14] MEDS ORDERED: FENTANYL INJ 100 mcg ONE (09:23)
[2020-08-14] MEDS ORDERED: BRIDION ONE (09:23)
[2020-08-14] MEDS ORDERED: OFIRMEV IV 1000 MG VIAL 1,000 MG/100 ML VIAL IV ONE (09:24)
[2020-08-14] MEDS ORDERED: ZEMURON 50 MG VIAL ONE (09:24)
[2020-08-14] MEDS ORDERED: BACTROBAN TOPICAL OINT ONE (09:26)
[2020-08-14] MEDS ORDERED: SUPRANE ONE ×2 (09:34)
[2020-08-14] MEDS ORDERED: XYLOCAINE 2 % (PLAIN) ONE (09:34)
[2020-08-14] MEDS ORDERED: TORADOL 30 MG VIAL ONE (09:34)
[2020-08-14] MEDS ORDERED: VERSED ONE (09:34)
[2020-08-14] MEDS ORDERED: ZOFRAN INJ 4 MG VIAL ONE (09:34)
[2020-08-14] MEDS ORDERED: DIPRIVAN VIAL ONE (09:34)
[2020-08-14] MEDS ORDERED: LTA KIT LIDOCAINE 4% ONE (09:34)
--- NOTE | 2020-08-14 09:49 | PCM.PROG ---
Progress Note Progress Note for Day of Date of Exam: 08/14/20 Subjective Subjective: Patient seen at bedside, no overnight events. She states her abdominal pain is about the same. She had some nausea earlier but no vomiting. She is scheduled to have lap cholecystectomy later today. Patient has been NPO since last night. Labs: WBC 4.5 Hgb 10.5 K: 3.4 Glucose 74 U/S RUQ: sludge noted, concerning for possible acute cholecystitis Plan: patient was seen by Dr. Hernandez yesterday and she is scheduled to have lap cholecystectomy today. Continue pain control and IVF. Continue anti-emetics. Will replace K. Continue NPO status. Follow surgery recommendations. Past Medical Family Social History Past Med/Fam/Surg Hx: No changes since H&P Allergies: Allergies No Known Drug Allergies Allergy (Verified 04/19/18 10:27) Review of Systems ROS: No change since H&P Vital Signs and I&O's Vital Signs: Temperature 97.7 F Pulse Rate [Right Brachial] 61 Pulse Rate [Apical] 60 Pulse Rate 92 Respiratory Rate 18 Blood Pressure [Right Arm] 156/69 Blood Pressure [Left Arm] 167/72 Blood Pressure 167/72 O2 Sat by Pulse Oximetry 96 Intake and Output: Intake & Output 08/11/20 08/12/20 08/13/20 08/14/20 23:59 23:59 23:59 23:59 Intake Total 605 / 605 2226 / 2226 0 / 0 Balance 605 / 605 2226 / 2226 0 / 0 Physical Exam Oriented: Normal Eyes: Normal Ear: Normal Nose: Normal Throat: Normal Respiratory: Normal Cardiovascular: Normal Auscultation: Bowel Sounds: Normal Tenderness: RUQ, Epigastric and Mild; negative Rebound and Guarding Skin: Normal Musculoskeletal: Normal Psychiatric: Normal Mood Description: Calm and Appropriate Affect: Normal Speech Pattern: Clear Laboratory and Diagnostics Result Diagrams: 08/14/20 05:03 08/14/20 05:03 Labs: Laboratory WBC 4.5 X10^3/uL (3.6-10.0) 08/14/20 05:03 RBC 3.51 X10^6/uL (3.5-5.4) 08/14/20 05:03 Hgb 10.5 g/dL (12.0-16.0) L 08/14/20 05:03 Hct 31.3 % (36.0-47.0) L 08/14/20 05:03 MCV 89.1 fL (80.0-100.0) 08/14/20 05:03 MCH 29.8 pg (27.0-34.0) 08/14/20 05:03 MCHC 33.4 g/dL (33.0-35.0) 08/14/20 05:03 RDW 13.5 % (11.6-16.5) 08/14/20 05:03 Plt Count 172 X10^3/uL (150.0-450.0) 08/14/20 05:03 MPV 8.2 fL (7.4-11.0) 08/14/20 05:03 Neut % (Auto) 57.5 % (42.0-75.0) 08/14/20 05:03 Lymph % (Auto) 31.1 % (21.0-51.0) 08/14/20 05:03 [place] % (Auto) 7.5 % (0.0-13.0) 08/14/20 05:03 Eos % (Auto) 3.1 % (0.9-2.9) H 08/14/20 05:03 Baso % (Auto) 0.8 % (0.2-1.0) 08/14/20 05:03 Neut # (Auto) 2.6 x10^3/uL (2.2-4.8) 08/14/20 05:03 Lymph # (Auto) 1.4 X10^3/uL (1.3-2.9) 08/14/20 05:03 [place] # (Auto) 0.3 x10^3/uL (0.3-0.8) 08/14/20 05:03 Eos # (Auto) 0.1 x10^3/uL (0.0-0.2) 08/14/20 05:03 Baso # (Auto) 0.0 X10^3/uL (0.0-0.1) 08/14/20 05:03 Absolute Nucleated RBC 0.0 /100WBC 08/14/20 05:03 Sodium 141 mmol/L (136-145) 08/14/20 05:03 Corrected Sodium TNP 08/14/20 05:03 Potassium 3.4 mmol/L (3.5-5.1) L 08/14/20 05:03 Chloride 109 mmol/L (98-107) H 08/14/20 05:03 Carbon Dioxide 23.9 mmol/L (21-32) 08/14/20 05:03 BUN 12 mg/dL (7-18) 08/14/20 05:03 Creatinine 0.61 mg/dL (0.55-1.02) 08/14/20 05:03 Est GFR (MDRD) Af Amer > 60 (>60) 08/14/20 05:03 Est GFR (MDRD) Non-Af > 60 (>60) 08/14/20 05:03 Glucose 74 mg/dL (65-99) 08/14/20 05:03 Calcium 8.3 mg/dL (8.5-10.1) L 08/14/20 05:03 Corrected Calcium 9.3 mg/dL (8.5-10.1) 08/14/20 05:03 Magnesium 1.9 mg/dL (1.7-2.9) 08/14/20 05:03 Iron 49 ug/dL (50-175) L 08/13/20 14:40 Transferrin 199 mg/dL (202-364) L 08/13/20 14:40 Ferritin 227 ng/mL (8-252) 08/13/20 14:40 Total Bilirubin 0.50 mg/dL (0.2-1.0) 08/14/20 05:03 AST 17 Units/L (15-37) 08/14/20 05:03 ALT 18 Units/L (12-78) 08/14/20 05:03 Alkaline Phosphatase 60 Units/L (46-116) 08/14/20 05:03 Total Protein 5.8 g/dL (6.4-8.2) L 08/14/20 05:03 Albumin 2.7 g/dL (3.4-5.0) L 08/14/20 05:03 Globulin 3.1 g/dL (2.5-4.5) 08/14/20 05:03 Albumin/Globulin Ratio 0.9 Ratio (1.1-2.1) L 08/14/20 05:03 Amylase 41 Units/L (25-115) 08/13/20 05:19 Lipase 228 Units/L (73-393) 08/13/20 05:19 Vitamin B12 445 pg/mL (193-986) 08/13/20 14:40 Folate 16.2 ng/mL (>8.6) 08/13/20 14:40 SARS CoV-2 RNA Rapid ODESSA Negative (NEGATIVE) 08/12/20 16:20 Plan (1) Acute cholecystitis: Status: Acute (2) Intractable nausea and vomiting: Status: Acute (3) Abdominal pain: Status: Acute Qualifiers: Abdominal location: generalized Qualified Code(s): R10.84 - Generalized abdominal pain (4) Hiatal hernia: Status: Acute (5) Anemia: Status: Acute Qualifiers: Anemia type: unspecified type Qualified Code(s): D64.9 - Anemia, unspecified (6) Gastric outlet obstruction: Status: Acute (7) HTN (hypertension): Status: Acute Qualifiers: Hypertension type: essential hypertension Qualified Code(s): I10 - Essential (primary) hypertension (8) GERD (gastroesophageal reflux disease): Status: Acute Qualifiers: Esophagitis presence: esophagitis presence not specified Qualified Code(s): K21.9 - Gastro-esophageal reflux disease without esophagitis
[2020-08-14] MEDS ORDERED: DILAUDID INJ IVP PRN (10:29)
--- NOTE | 2020-08-14 10:48 | DR.CONSULT ---
Consult - Consultation for Day of: Date: 08/13/20 - Chief Complaint Chief Complaint: Patient referred for abnormal gallbladder US. Patient with complaints dysphagia, nausea, vomiting. - History of Present Illness History of Present Illness: Patient is a 74 yo female who was referred for abnormal gallbladder US. Patient with complaints dysphagia, nausea x 4 days, vomiting x 4 days, last vomiting yesteday at 3. Patient denies dyspepsia, abdo melissa pain, constipation, diarrhea, melena and hematocheiza. Last EGD was 07/04/20 which showed distal esophageal ulcer, 6 cm hiatal hernia and mild to moderate gastritis. Last colon was 06/30/18 whcih showed hyperplastic colon polyps and internal hemorrhoids. Gallbladder US showed normal liver, sludge in gallbladder with possible mild changes of acute cholecystitis. Hgb 11.5, Hct 33.9, Plt 212, BUN 20, Creatinine 0.81, T. Bili 07, AST 14, ALT 15, ALP 69. Patient noted with RUQ and Epigastric tenderness. - Past Medical History Past Medical History: Hypertension, Anxiety, GERD, Sleep Apnea Additional Medical History: IBS, HIATAL HERNIA - Past Surgical History Surgical History: Hysterectomy, Other Additional Surgical History: Bladder tack-approximately 10 years ago - Family History Family Medical History: Cancer, Coronary Artery Disease - Social History Does patient currently use any type of tobacco product: No Have you used tobacco products in the last 12 months: No Type of Tobacco Use: None Does any household member use tobacco: No Alcohol Use: None Drug Use: None - Medications Home Medications: No Known Drug Allergies Allergy (Verified 04/19/18 10:27) CONTINUE taking the following medications bisoprolol fumarate 5 mg PO DAILY 08/12/20 [History] cephalexin 250 mg PO HS 08/12/20 [History] sertraline 100 mg PO DAILY 08/12/20 [History] - Review of Systems Gastrointestinal: See HPI, Nausea, Vomiting. denies: Abdominal Pain, Diarrhea, Constipation, Melena, Hematochezia - Physical Exam Vital Signs: Temperature 97.9 F Pulse Rate [Right Brachial] 61 Pulse Rate [Apical] 60 Pulse Rate 71 Respiratory Rate 16 Blood Pressure [Right Arm] 156/69 Blood Pressure [Left Arm] 167/72 Blood Pressure 173/73 O2 Sat by Pulse Oximetry 96 Oriented: Normal Eyes: Normal Ear: Normal Nose: Normal Throat: Normal Respiratory: Clear Throughout Cardiovascular: Normal Auscultation: Bowel Sounds: Normal Palpation: Normal, Other (no distention). negative: Spleen Enlarged, Liver Enlarged, Mass Pulsatile Tenderness: RUQ, Epigastric Skin: Normal Musculoskeletal: Normal Psychiatric: Normal Mood Description: Calm Affect: Normal Speech Pattern: Clear, Appropriate - Plan Plan: Assessment. 1. Nausea, vomiting likely secondary to hiatal hernia r/o cholecystitis. 2, Thrombocytopenia, liver normal on US, MELO fibrosure pending. Plan. 1. HIDA Scan with EF. 2. Monitor Plt and LFTS. Plan reviewed with José Miguel Aleman - Allergies Allergies/Adverse Reactions: Allergies Allergy/AdvReac Type Severity Reaction Status Date / Time No Known Drug Allergies Allergy Verified 04/19/18 10:27
[2020-08-14] MEDS: PROTONIX INJ 40 MG VIAL IVP SCH ×2 (11:00→20:43)
[2020-08-14] MEDS ORDERED: KLOR-CON PO PRN (18:24)
[2020-08-14] MEDS ORDERED: POTASSIUM CHLORIDE LIQ 20 MEQ UDC PO PRN (18:24)
[2020-08-14] MEDS: D5 1/2 NS 1000 ML 1,000 ML IV SCH ×3 (19:07→20:41)
[2020-08-14] MEDS: K-DUR TAB 20 MEQ PO PRN (19:13)
[2020-08-15] MEDS: D5 1/2 NS 1000 ML 1,000 ML IV SCH ×3 (04:39→11:37)
[2020-08-15 06:21] LABS: ALANINE AMINOTRANSFERASE 25 Units/L (12-78); ALBUMIN 2.8 g/dL (3.4-5.0); ALKALINE PHOSPHATASE 64 Units/L (46-116); ASPARTATE AMINO TRANSFERASE 29 Units/L (15-37); BLOOD UREA NITROGEN 5 mg/dL (7-18); CALCIUM 8.3 mg/dL (8.5-10.1); CARBON DIOXIDE 24.3 mmol/L (21-32); CHLORIDE 108 mmol/L (98-107); COR CA(FOR HYPOALB) 9.3 mg/dL (8.5-10.1); CREATININE 0.55 mg/dL (0.55-1.02); SODIUM 142 mmol/L (136-145); eGFR NON BLACK RACES > 60 (>60)
[2020-08-15 06:26] LABS: BASOPHILS % (AUTO) 0.6 % (0.2-1.0); EOSINOPHILS # (AUTO) 0.1 x10^3/uL (0.0-0.2); EOSINOPHILS % (AUTO) 2.1 % (0.9-2.9); HEMATOCRIT 33.9 % (36.0-47.0); HEMOGLOBIN 11.1 g/dL (12.0-16.0); LYMPHOCYTES # (AUTO) 1.1 X10^3/uL (1.3-2.9); LYMPHOCYTES % (AUTO) 19.8 % (21.0-51.0); MEAN CORPUSCULAR HGB CONC 32.9 g/dL (33.0-35.0); MEAN CORPUSCULAR VOLUME 88.3 fL (80.0-100.0); MEAN PLATELET VOLUME 8.2 fL (7.4-11.0); MONOCYTES # (AUTO) 0.4 x10^3/uL (0.3-0.8); MONOCYTES % (AUTO) 7.1 % (0.0-13.0); NEUTROPHILS % (AUTO) 70.4 % (42.0-75.0); PLATELET COUNT 205 X10^3/uL (150.0-450.0); RED BLOOD COUNT 3.84 X10^6/uL (3.5-5.4); RED CELL DISTRIBUTION WIDTH 13.4 % (11.6-16.5); WHITE BLOOD COUNT 5.6 X10^3/uL (3.6-10.0)
[2020-08-15 08:37] VITALS: BP 190/74
[2020-08-15] MEDS ORDERED: MILK OF MAGNESIA PO SCH ×2 (09:00)
[2020-08-15] MEDS: K-DUR TAB 20 MEQ PO PRN (09:38)
[2020-08-15] MEDS: PROTONIX INJ 40 MG VIAL IVP SCH (09:44)
--- NOTE | 2020-08-15 10:37 | W.DIS.FURT ---
Summary of Discharge Discharge Summary of Date Date of Exam: 08/15/20 Admission Date Date of Admission: 08/12/20 Admission Diagnosis Patient Problems (Updated 08/14/20 @ 09:54 by Nolvia Grier) Gastric outlet obstruction (Acute) K31.1 Nausea & vomiting (Acute) R11.2 Hospital Course: Ms. Quintanilla is a 74y/o female with a PMH of hiatal hernia, gastritis, distal esophageal ulcer, HTN and HLD presented with intractable nausea, vomiting and abdominal pain. Patient states her Sx started over a week ago and have worsened. She did see Dr. Aleman in the clinic last and was started on Reglan but over the weekend she continued to have more nausea and vomiting. She states she was also told that her LFTs were slightly elevated so she was scheduled for outpatient liver U/S. She was not able to keep anything down. She denies any trouble swallowing. She was admitted in Jun for COVID infection and had EGD done then. She has been taking Protonix. She has not had any more vomiting overnight. Denies diarrhea or melena. Labs on admission showed normal WBC, Hgb 11.5, normal lipase and LFTs. GI was contacted in the ED and recommended IV protonix and hydration. Patient was started on Protonix 40 mg IV BID and anti-emetics. RUQ U/S was done which showed sludge. Surgery was consulted and recommended cholecystectomy. Patient was taken to OR for lap cholecystectomy. She had no post-op complications. Her labs were monitored daily and electrolytes replaced as needed. Her diet was advanced as tolerated. Patient was stable for discharge. She will follow up with PCP and surgery as scheduled. Vital Signs: Vital Signs (72 hours) 08/12/20 10:57 08/12/20 11:43 08/12/20 11:45 Temperature 98.6 F Pulse Rate 95 H 77 76 Pulse Rate [Apical] Pulse Rate [Right Brachial] Respiratory Rate 18 Blood Pressure 147/79 187/81 Blood Pressure [Left Arm] Blood Pressure [Right Arm] O2 Sat by Pulse Oximetry 103 H 96 96 08/12/20 12:00 08/12/20 12:01 08/12/20 12:15 Temperature Pulse Rate 72 71 73 Pulse Rate [Apical] Pulse Rate [Right Brachial] Respiratory Rate Blood Pressure 186/80 Blood Pressure [Left Arm] Blood Pressure [Right Arm] O2 Sat by Pulse Oximetry 95 96 97 08/12/20 12:30 08/12/20 12:45 08/12/20 13:00 Temperature Pulse Rate 70 66 63 Pulse Rate [Apical] Pulse Rate [Right Brachial] Respiratory Rate 18 Blood Pressure 205/80 Blood Pressure [Left Arm] Blood Pressure [Right Arm] O2 Sat by Pulse Oximetry 96 98 98 08/12/20 13:01 08/12/20 13:15 08/12/20 13:16 Temperature Pulse Rate 63 63 62 Pulse Rate [Apical] Pulse Rate [Right Brachial] Respiratory Rate Blood Pressure 205/80 202/87 Blood Pressure [Left Arm] Blood Pressure [Right Arm] O2 Sat by Pulse Oximetry 98 99 99 08/12/20 13:30 08/12/20 13:45 08/12/20 13:53 Temperature Pulse Rate 65 61 62 Pulse Rate [Apical] Pulse Rate [Right Brachial] Respiratory Rate Blood Pressure 208/82 Blood Pressure [Left Arm] Blood Pressure [Right Arm] O2 Sat by Pulse Oximetry 98 98 97 08/12/20 14:00 08/12/20 14:15 08/12/20 14:21 Temperature Pulse Rate 61 78 80 Pulse Rate [Apical] Pulse Rate [Right Brachial] Respiratory Rate 98 H Blood Pressure 195/80 193/78 Blood Pressure [Left Arm] Blood Pressure [Right Arm] O2 Sat by Pulse Oximetry 98 98 99 08/12/20 14:30 08/12/20 14:51 08/12/20 15:00 Temperature Pulse Rate 81 109 H 91 H Pulse Rate [Apical] Pulse Rate [Right Brachial] Respiratory Rate 16 Blood Pressure 159/69 Blood Pressure [Left Arm] Blood Pressure [Right Arm] O2 Sat by Pulse Oximetry 98 99 99 08/12/20 15:05 08/12/20 15:15 08/12/20 15:30 Temperature Pulse Rate 93 H 90 84 Pulse Rate [Apical] Pulse Rate [Right Brachial] Respiratory Rate Blood Pressure 159/69 174/74 Blood Pressure [Left Arm] Blood Pressure [Right Arm] O2 Sat by Pulse Oximetry 99 98 98 08/12/20 15:45 08/12/20 15:47 08/12/20 16:00 Temperature Pulse Rate 84 63 Pulse Rate [Apical] Pulse Rate [Right Brachial] Respiratory Rate Blood Pressure 167/72 Blood Pressure [Left Arm] Blood Pressure [Right Arm] O2 Sat by Pulse Oximetry 98 98 08/12/20 16:02 08/12/20 16:19 08/12/20 16:30 Temperature Pulse Rate 87 89 92 H Pulse Rate [Apical] Pulse Rate [Right Brachial] Respiratory Rate Blood Pressure Blood Pressure [Left Arm] Blood Pressure [Right Arm] O2 Sat by Pulse Oximetry 97 97 98 08/12/20 17:00 08/12/20 20:00 08/13/20 00:00 Temperature 99.2 F 98.6 F Pulse Rate Pulse Rate [Apical] 93 H 73 Pulse Rate [Right Brachial] Respiratory Rate 20 18 Blood Pressure Blood Pressure [Left Arm] 167/72 Blood Pressure [Right Arm] 128/58 158/67 O2 Sat by Pulse Oximetry 98 96 08/13/20 04:00 08/13/20 08:00 08/13/20 12:00 Temperature 98.5 F 97.7 F 98.3 F Pulse Rate Pulse Rate [Apical] 66 70 63 Pulse Rate [Right Brachial] Respiratory Rate 18 18 18 Blood Pressure Blood Pressure [Left Arm] Blood Pressure [Right Arm] 127/61 140/65 148/67 O2 Sat by Pulse Oximetry 95 95 96 08/13/20 16:00 08/13/20 20:00 08/14/20 00:00 Temperature 98.3 F 98.3 F 98.5 F Pulse Rate Pulse Rate [Apical] 66 60 68 Pulse Rate [Right Brachial] Respiratory Rate 18 20 20 Blood Pressure Blood Pressure [Left Arm] Blood Pressure [Right Arm] 141/65 171/73 151/66 O2 Sat by Pulse Oximetry 96 96 93 L 08/14/20 04:00 08/14/20 08:00 08/14/20 09:22 Temperature 98.3 F 97.7 F Pulse Rate 92 H Pulse Rate [Apical] 60 Pulse Rate [Right Brachial] 61 Respiratory Rate 20 18 Blood Pressure Blood Pressure [Left Arm] Blood Pressure [Right Arm] 171/73 156/69 O2 Sat by Pulse Oximetry 96 96 08/14/20 10:24 08/14/20 10:28 08/14/20 10:33 Temperature 97.9 F Pulse Rate 73 73 69 Pulse Rate [Apical] Pulse Rate [Right Brachial] Respiratory Rate 16 16 16 Blood Pressure 187/98 148/67 134/60 Blood Pressure [Left Arm] Blood Pressure [Right Arm] O2 Sat by Pulse Oximetry 96 96 96 08/14/20 10:38 08/14/20 10:43 08/14/20 10:45 Temperature 98.6 F Pulse Rate 71 77 Pulse Rate [Apical] Pulse Rate [Right Brachial] 66 Respiratory Rate 16 16 18 Blood Pressure 173/73 149/67 Blood Pressure [Left Arm] Blood Pressure [Right Arm] 186/76 O2 Sat by Pulse Oximetry 96 96 95 08/14/20 10:48 08/14/20 11:00 08/14/20 11:15 Temperature 97.7 F 98.4 F Pulse Rate 74 Pulse Rate [Apical] Pulse Rate [Right Brachial] 67 71 Respiratory Rate 16 18 18 Blood Pressure 148/77 Blood Pressure [Left Arm] Blood Pressure [Right Arm] 180/77 173/72 O2 Sat by Pulse Oximetry 96 95 94 L 08/14/20 11:30 08/14/20 11:45 08/14/20 12:45 Temperature 98.4 F 98.4 F 98.3 F Pulse Rate Pulse Rate [Apical] Pulse Rate [Right Brachial] 67 67 67 Respiratory Rate 18 18 18 Blood Pressure Blood Pressure [Left Arm] Blood Pressure [Right Arm] 185/77 177/75 198/77 O2 Sat by Pulse Oximetry 95 97 97 08/14/20 13:45 08/14/20 14:45 08/14/20 15:45 Temperature 98.5 F 98.7 F 98.7 F Pulse Rate Pulse Rate [Apical] Pulse Rate [Right Brachial] 65 67 65 Respiratory Rate 18 18 18 Blood Pressure Blood Pressure [Left Arm] Blood Pressure [Right Arm] 181/76 167/73 156/69 O2 Sat by Pulse Oximetry 97 95 96 08/14/20 16:00 08/14/20 20:00 08/15/20 00:00 Temperature 98.6 F 98.7 F 98.7 F Pulse Rate Pulse Rate [Apical] 61 66 Pulse Rate [Right Brachial] 66 61 66 Respiratory Rate 18 18 18 Blood Pressure Blood Pressure [Left Arm] Blood Pressure [Right Arm] 157/62 183/76 182/77 O2 Sat by Pulse Oximetry 97 97 97 08/15/20 04:00 08/15/20 08:00 Temperature 98.6 F 98.8 F Pulse Rate Pulse Rate [Apical] Pulse Rate [Right Brachial] 69 70 Respiratory Rate 20 19 Blood Pressure Blood Pressure [Left Arm] Blood Pressure [Right Arm] 172/73 190/74 O2 Sat by Pulse Oximetry 95 97 Labs: Laboratory Last Values WBC 5.6 X10^3/uL (3.6-10.0) 08/15/20 05:19 RBC 3.84 X10^6/uL (3.5-5.4) 08/15/20 05:19 Hgb 11.1 g/dL (12.0-16.0) L 08/15/20 05:19 Hct 33.9 % (36.0-47.0) L 08/15/20 05:19 MCV 88.3 fL (80.0-100.0) 08/15/20 05:19 MCH 29.0 pg (27.0-34.0) 08/15/20 05:19 MCHC 32.9 g/dL (33.0-35.0) L 08/15/20 05:19 RDW 13.4 % (11.6-16.5) 08/15/20 05:19 Plt Count 205 X10^3/uL (150.0-450.0) 08/15/20 05:19 MPV 8.2 fL (7.4-11.0) 08/15/20 05:19 Neut % (Auto) 70.4 % (42.0-75.0) 08/15/20 05:19 Lymph % (Auto) 19.8 % (21.0-51.0) L 08/15/20 05:19 [place] % (Auto) 7.1 % (0.0-13.0) 08/15/20 05:19 Eos % (Auto) 2.1 % (0.9-2.9) 08/15/20 05:19 Baso % (Auto) 0.6 % (0.2-1.0) 08/15/20 05:19 Neut # (Auto) 4.0 x10^3/uL (2.2-4.8) 08/15/20 05:19 Lymph # (Auto) 1.1 X10^3/uL (1.3-2.9) L 08/15/20 05:19 [place] # (Auto) 0.4 x10^3/uL (0.3-0.8) 08/15/20 05:19 Eos # (Auto) 0.1 x10^3/uL (0.0-0.2) 08/15/20 05:19 Baso # (Auto) 0.0 X10^3/uL (0.0-0.1) 08/15/20 05:19 Absolute Nucleated RBC 0.0 /100WBC 08/15/20 05:19 Sodium 142 mmol/L (136-145) 08/15/20 05:19 Corrected Sodium TNP 08/15/20 05:19 Potassium 3.2 mmol/L (3.5-5.1) L 08/15/20 05:19 Chloride 108 mmol/L (98-107) H 08/15/20 05:19 Carbon Dioxide 24.3 mmol/L (21-32) 08/15/20 05:19 BUN 5 mg/dL (7-18) L 08/15/20 05:19 Creatinine 0.55 mg/dL (0.55-1.02) 08/15/20 05:19 Est GFR (MDRD) Af Amer > 60 (>60) 08/15/20 05:19 Est GFR (MDRD) Non-Af > 60 (>60) 08/15/20 05:19 Glucose 110 mg/dL (65-99) H 08/15/20 05:19 Calcium 8.3 mg/dL (8.5-10.1) L 08/15/20 05:19 Corrected Calcium 9.3 mg/dL (8.5-10.1) 08/15/20 05:19 Magnesium 1.9 mg/dL (1.7-2.9) 08/14/20 05:03 Iron 49 ug/dL (50-175) L 08/13/20 14:40 Transferrin 199 mg/dL (202-364) L 08/13/20 14:40 Ferritin 227 ng/mL (8-252) 08/13/20 14:40 Total Bilirubin 0.60 mg/dL (0.2-1.0) 08/15/20 05:19 AST 29 Units/L (15-37) 08/15/20 05:19 ALT 25 Units/L (12-78) 08/15/20 05:19 Alkaline Phosphatase 64 Units/L (46-116) 08/15/20 05:19 Total Protein 6.0 g/dL (6.4-8.2) L 08/15/20 05:19 Albumin 2.8 g/dL (3.4-5.0) L 08/15/20 05:19 Globulin 3.2 g/dL (2.5-4.5) 08/15/20 05:19 Albumin/Globulin Ratio 0.9 Ratio (1.1-2.1) L 08/15/20 05:19 Amylase 41 Units/L (25-115) 08/13/20 05:19 Lipase 228 Units/L (73-393) 08/13/20 05:19 Vitamin B12 445 pg/mL (193-986) 08/13/20 14:40 Folate 16.2 ng/mL (>8.6) 08/13/20 14:40 SARS CoV-2 RNA Rapid ODESSA Negative (NEGATIVE) 08/12/20 16:20 Tissue Pathology To follow 08/14/20 10:05 Reason For Visit: "nausea, dehydrated, vomiting, hernia" Discharge Date Discharge Date: 08/15/20 Discharge Diagnosis All Active Problems (Updated 08/14/20 @ 09:54 by Nolvia Grier) Acute cholecystitis (Acute) Anemia (Acute) GERD (gastroesophageal reflux disease) (Acute) Hiatal hernia (Acute) HTN (hypertension) (Acute) Intractable nausea and vomiting (Acute) Abdominal pain (Acute) Gastric outlet obstruction (Acute) Nausea & vomiting (Acute) COVID-19 (Acute) Plan of Treatment: Continue with present treatment and follow up plan. Pt is to keep follow up appointment as instructed and take medications as ordered. Discharge Medications Discharge Medications: No Known Drug Allergies Allergy (Verified 04/19/18 10:27) CONTINUE taking the following medications bisoprolol fumarate 5 mg PO DAILY 08/12/20 [History] sertraline 100 mg PO DAILY 08/12/20 [History] Follow up and Referral Follow Up: 1 Week (PCP) 1 Week (Surgery ) Discharge Disposition Discharge Disposition: Home Discharge Condition: Stable Discharge Plan Discharge Plan Hospital Course: Ms. Quintanilla is a 74y/o female with a PMH of hiatal hernia, gastritis, distal esophageal ulcer, HTN and HLD presented with intractable nausea, vomiting and abdominal pain. Patient states her Sx started over a week ago and have worsened. She did see Dr. Aleman in the clinic last Tu and was started on Reglan but over the weekend she continued to have more nausea and vomiting. She states she was also told that her LFTs were slightly elevated so she was scheduled for outpatient liver U/S. She was not able to keep anything down. She denies any trouble swallowing. She was admitted in Jun for COVID infection and had EGD done then. She has been taking Protonix. She has not had any more vomiting overnight. Denies diarrhea or melena. Labs on admission showed normal WBC, Hgb 11.5, normal lipase and LFTs. GI was contacted in the ED and recommended IV protonix and hydration. Patient was started on Protonix 40 mg IV BID and anti- emetics. RUQ U/S was done which showed sludge. Surgery was consulted and recommended cholecystectomy. Patient was taken to OR for lap cholecystectomy. She had no post-op complications. Her labs were monitored daily and electrolytes replaced as needed. Her diet was advanced as tolerated. Patient was stable for discharge. She will follow up with PCP and surgery as scheduled. Patient Disposition: 01 HOME, SELF-CARE Condition: Stable Health Concerns: Post Hospitalization: new medications and changes needed to prevent readmission or further decline. Pt educated and given instructions on all concerns. Care Plan Goals: Problem: Infection Goal: Temperature within normal limits. Resolved infection. Instructions: Follow provided instructions. Follow up with primary physician as directed. Contact primary care physician or report to the closest Emergency Room if condition worsens. Plan of Treatment: Continue with present treatment and follow up plan. Pt is to keep follow up appointment as instructed and take medications as ordered. Prescriptions: New hydrocodone-acetaminophen 5-300 mg Tablet 1 tab PO Q4H MDD 4 PRNQty: 20 RF: 0 Continued temazepam 30 mg Capsule 30 mg PO QHS PRNRF: 0 lovastatin 20 mg tablet 20 mg PO DAILY RF: 0 losartan-hydrochlorothiazide 100-12.5 mg tablet 0.5 tab PO DAILY RF: 0 pantoprazole 40 MG tablet,delayed release (DR/EC) 40 mg PO BID Qty: 60 RF: 3 sertraline 100 mg Tablet 100 mg PO DAILY RF: 0 bisoprolol fumarate 5 mg Tablet 5 mg PO DAILY RF: 0 Discontinued metoclopramide HCl 10 mg Tablet 10 mg PO QID RF: 0 cephalexin 250 mg Tablet 250 mg PO HS RF: 0 Orders to Discharge Patient Discharge Orders: Discharge (Routine); Ordered 08/15/20 Ordered By: Nolvia Grier Follow ups/Referrals Follow ups/Referrals: Hang Mosqueda [Primary Care Provider] - 3 days MYESHA SANDERS [STAFF PHYSICIAN] - 08/27/20 10:30 am Instructions Instructions: Laparoscopic Cholecystectomy, Care After, Hypertension, Easy-to- Read, Gallbladder Eating Plan, Fat and Cholesterol Restricted Eating Plan, [id number] Stand Alone Forms: Excuse From Work or School, Precautions for COVID19, Patient Portal, Social Distancing
[2020-08-15] MEDS ORDERED: COLACE CAP 100 MG PO SCH (21:00)
== END 2020-08-15 11:40 | disposition home or self-care (01) ==
LOC: ER 10:55 → MED/SURG 10:55
PROVIDERS: ADMIT Emergency Medicine; ATTEND Internal Medicine
DX: Z86.16 Personal history of COVID-19; K21.9 Gastro-esophageal reflux disease without esophagitis; I10 Essential (primary) hypertension; R94.5 Abnormal results of liver function studies; R11.2 Nausea with vomiting, unspecified; Z20.822 Contact with and (suspected) exposure to COVID-19; K31.1 Adult hypertrophic pyloric stenosis; K82.8 Other specified diseases of gallbladder; K44.9 Diaphragmatic hernia without obstruction or gangrene; R13.11 Dysphagia, oral phase; K29.60 Other gastritis without bleeding; K81.0 Acute cholecystitis; R10.84 Generalized abdominal pain

== ENCOUNTER 2025-03-22 08:09 | Inpatient (IN) ==
[2025-03-22 08:37] LABS: MEAN PLATELET VOLUME 7.6 fL (7.4-11.0); RED CELL DISTRIBUTION WIDTH 13.2 % (11.6-16.5)
[2025-03-22 08:46] LABS: COR NA(FOR HYPERGLY) 135 mmol/L (136-145); CREATININE 1.07 mg/dL (0.55-1.02); eGFR NON BLACK RACES 52 (>60)
[2025-03-22 09:10] LABS: BAND NEUTROPHILS % 4 % (0-10); PLATELET MORPHOLOGY COMMENT NORMAL (NORMAL)
[2025-03-22] MEDS: APRESOLINE INJ 20 MG VIAL IVP ONE (09:21)
[2025-03-22] MEDS: NS 1,000 ML IV 1,000 ML IV ONE (09:24)
--- NOTE | 2025-03-22 09:29 | CT ---
EXAM: CT ABDOMEN AND PELVIS WITHOUT CONTRAST HISTORY: abd pain; gb & hernia repair COMPARISON: None. TECHNIQUE: Axial CT images were obtained through the abdomen and pelvis without contrast. Coronal and sagittal reformatted images were included. All CT scans at this facility use dose modulation, iterative reconstruction, and/or weight based dosing when appropriate to reduce radiation dose to as low as reasonably achievable. FINDINGS: Please note that without the use of intravenous contrast, evaluation of organ parenchyma is limited. Mild dependent lung atelectasis. Small hiatal hernia. Unenhanced liver is unremarkable. Prior cholecystectomy. Spleen, pancreas, adrenals, and kidneys are unremarkable. Mild aortoiliac atherosclerosis without aneurysm. The cecum is flipped into the midline anteriorly with surrounding wall thickening and edema. Cecum is distended up to 10 cm. Distal small-bowel loops are mildly distended up to 3 cm with internal air and fluid. No free peritoneal air or fluid. No evidence of perforation. Nondistended urinary bladder. Absent uterus. No free pelvic fluid. No acute osseous findings. Moderate lumbar spondylosis with grade 1 anterolisthesis at L4-L5. 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 There is mild surrounding edema with dilated distal small bowel loops but no evidence of obstruction. THIS IS AN ELECTRONICALLY VERIFIED FINAL REPORT 03/22/2025 9:26 AM - Electronically signed by Nader Sadler MD
--- NOTE | 2025-03-22 09:30 | CT ---
EXAM: CT HEAD WITHOUT CONTRAST HISTORY: ams; COMPARISON: None. .br.br.br without contrast. All CT scans at this facility use dose modulation, iterative reconstruction, and/or weight based dosing when appropriate to reduce radiation dose to as low as reasonably achievable. FINDINGS: BRAIN: There is mild diffuse atrophy with proportionate enlargement of the cerebral sulci and ventricular system. Decreased attenuation in the periventricular white matter is compatible with but not specific for chronic small vessel ischemic changes. No evidence of acute infarct intra or extraaxial hemorrhage mass effect or hydrocephalus. CALVARIUM: Normal ADDITIONAL FINDINGS: The visualized paranasal sinuses and mastoid air cells are clear. Orbits are grossly unremarkable. IMPRESSION: No evidence of acute intracranial process. THIS IS AN ELECTRONICALLY VERIFIED FINAL REPORT 03/22/2025 9:28 AM - Electronically signed by Nader Spears MD
--- NOTE | 2025-03-22 09:45 | ED.ABDFE ---
HPI Time Seen Time Seen by Provider: 03/22/25 08:12 PCP Primary Care Physician: Panda Salas Doctors Chief Complaint Comments: Patient wounds complaint of abdominal pain since Wednesday. Pain is generalized and tender on palpation. Patient states she had a normal bowel movement yesterday. Denies nausea vomiting or diarrhea. Denies fever. Per EMS, patient was having some forgetfulness of her date of and appeared slightly confused, however patient is able to answer questions well in ER but does admit to feeling slightly confused. Chief Complaint:: Pt arrived via EMS, able to transfer self from stretcher to ER bed with one person assist; pt appears weak. EMS reports pt having some forgetfulness, cannot remember her birthday and is having severe abdominal pain. Pt reports that she saw her PCP Wednesday this week, was diagnosed with GI virus, although she denies n/v/d or urinary issues. She states the abd pain started on Wednesday and has worsened since then. RUQ 10/10 on palpation, other locations are tender on palpation. Pt reports her LBM was yesterday and was normal Self Treatment fo Chief Complaint: States she has been taking meds prescribed by PCP as directed COVID-19 Coronavirus risk:travel/contact w/high risk person: No Has patient experienced Coronavirus symptoms: No Source History Provided: Patient and EMS Mode of arrival Mode of Arrival: EMS Timing Onset of Chief Complaint: 03/18/25 PMH PMH Past Medical History: Yes Past Medical History: Anemia, Anxiety, Coronary Artery Disease, CVA, Depression, Diabetes, Dyslipidemia, GERD, Hypertension and Sleep Apnea Past Medical History Comment: hx TIA, RLS Past Surgical History: Yes Surgical History: Cholecystectomy, Hysterectomy and Other Past Surgical History Comment: hernia repair, breast surgery, urinary bladder surgery Family History History of Family Medical Conditions: Yes Family Medical History: Cancer Social History Does any household member use tobacco: No Alcohol Use: None Do you use any recreational Drugs:: No Lives With: Spouse Lives Where: Home Travel Risk Coronavirus risk:travel/contact w/high risk person: No Has patient experienced Coronavirus symptoms: No Infectious screening In the last 2 months have you had wt loss of >10#?: NO Have you had fever, night sweats or hemotysis?: No Have you traveled outside the country in the last 6 months?: No Isolation: Standard ROS Review of Systems Constitutional: No Symptoms Reported Eyes: No Symptoms Reported ENTM: No Symptoms Reported Respiratoy: No Symptoms Reported Cardiovascular: No Symptoms Reported Gastrointestinal/Abdominal: See HPI Genitourinary: No Symptoms Reported Neurological: See HPI Musculoskeletal: No Symptoms Reported Integumentary: No Symptoms Reported Hematologic/Lymphatic: No Symptoms Reported Endocrine: No Symptoms Reported Psychiatric: No Symptoms Reported All Other Systems: Reviewed and Negative PE Vital Signs Vitals: Vital Signs Temperature 98.8 F Pulse Rate 77 Pulse Rate 75 Pulse Rate 71 Pulse Rate 69 Pulse Rate 71 Pulse Rate 76 Pulse Rate 76 Pulse Rate 73 Pulse Rate 73 Pulse Rate 75 Pulse Rate 75 Respiratory Rate 16 Blood Pressure 162/70 Blood Pressure 188/97 Blood Pressure 201/84 Blood Pressure 220/95 Blood Pressure 225/95 Blood Pressure 186/79 Blood Pressure 186/79 O2 Sat by Pulse Oximetry 98 O2 Sat by Pulse Oximetry 97 O2 Sat by Pulse Oximetry 96 O2 Sat by Pulse Oximetry 97 O2 Sat by Pulse Oximetry 95 O2 Sat by Pulse Oximetry 96 O2 Sat by Pulse Oximetry 96 O2 Sat by Pulse Oximetry 97 O2 Sat by Pulse Oximetry 97 O2 Sat by Pulse Oximetry 97 O2 Sat by Pulse Oximetry 95 General Limitations: No Limitations and Language Barrier General Appearance: Alert and In No Apparent Distress Head Head Exam: Normal Inspection Eyes Eye exam: Normal Appearance ENT ENT Exam: Normal Exam Neck Neck Exam: Normal Inspection Chest Chest Inspection: Normal Inspection Respiratory Respiratory Exam: Normal Lung Sounds Bilat Cardiovascular Cardiovascular Exam: Regular Rate and Normal Rhythm Abdominal Exam Abdominal Exam: Distention, Tenderness and Guarding; negative Rebound, Rigidity, Organomegaly or Ascites Rectal Rectal Exam: Deferred Back Back Exam: Normal Inspection Extremeties Extremities Exam: Normal Inspection Neurologic Neurological Exam: Alert and Oriented X3 Psychiatric Psychiatric Exam: Normal Affect and Normal Mood Skin Skin Exam: Warm, Dry and Intact COURSE Treatment Treatment: Patient given IV fluids and IV Zosyn. Patient resting comfortably in bed with family at bedside. Discussed results of with patient. Patient with cecal volvulus. She does have a history of cholecystectomy. Patient agreeable to admission. Consultation Consultation Comments: Discussed case with Dr. Hernandez, surgeon, and he is agreeable to admission. Discussed case with Dr. Foley and she is agreeable with admission. Critical Care Notes Total Time (mins): 43 Critical Diagnosis: Cecal volvulus Critical Interventions: Time spent doing and interpreting workup. Time spent on patient education and coordinating with specialist and making admission arrangements. ROR Labs Reviewed Laboratory Results Reviewed?: Yes 03/22/25 08:24 03/22/25 08:24 Laboratory: WBC 18.2 X10^3/uL (3.6-10.0) H 03/22/25 08:24 RBC 4.61 X10^6/uL (3.5-5.4) 03/22/25 08:24 Hgb 13.5 g/dL (12.0-16.0) 03/22/25 08:24 Hct 40.1 % (36.0-47.0) 03/22/25 08:24 MCV 86.8 fL (80.0-100.0) 03/22/25 08:24 MCH 29.3 pg (27.0-34.0) 03/22/25 08:24 MCHC 33.8 g/dL (33.0-35.0) 03/22/25 08:24 RDW 13.2 % (11.6-16.5) 03/22/25 08:24 Plt Count 214 X10^3/uL (150.0-450.0) 03/22/25 08:24 Plt Count Comment Adequate (ADEQUATE) 03/22/25 08:24 MPV 7.6 fL (7.4-11.0) 03/22/25 08:24 Neut % (Auto) 87.9 % (42.0-75.0) H 03/22/25 08:24 Lymph % (Auto) 4.3 % (21.0-51.0) L 03/22/25 08:24 [place] % (Auto) 7.4 % (0.0-13.0) 03/22/25 08:24 Eos % (Auto) 0.1 % (0.9-2.9) L 03/22/25 08:24 Baso % (Auto) 0.3 % (0.2-1.0) 03/22/25 08:24 Neut # (Auto) 16.0 x10^3/uL (2.2-4.8) H 03/22/25 08:24 Lymph # (Auto) 0.8 X10^3/uL (1.3-2.9) L 03/22/25 08:24 [place] # (Auto) 1.3 x10^3/uL (0.3-0.8) H 03/22/25 08:24 Eos # (Auto) 0.0 x10^3/uL (0.0-0.2) 03/22/25 08:24 Baso # (Auto) 0.1 X10^3/uL (0.0-0.1) 03/22/25 08:24 Absolute Nucleated RBC 0.0 /100WBC 03/22/25 08:24 Total Counted 100 03/22/25 08:24 Neutrophils % (Manual) 82 % (39-76) H 03/22/25 08:24 Band Neutrophils % 4 % (0-10) 03/22/25 08:24 Lymphocytes % (Manual) 11 % (13-43) L 03/22/25 08:24 Monocytes % (Manual) 3 % (4-9) L 03/22/25 08:24 Plt Morphology Comment Normal (NORMAL) 03/22/25 08:24 RBC Morphology Normal (NORMAL) 03/22/25 08:24 Sodium 132 mmol/L (136-145) L 03/22/25 08:24 Corrected Sodium 135 mmol/L (136-145) L 03/22/25 08:24 Potassium 4.2 mmol/L (3.5-5.1) 03/22/25 08:24 Chloride 98 mmol/L (98-107) 03/22/25 08:24 Carbon Dioxide 26.1 mmol/L (21-32) 03/22/25 08:24 BUN 17 mg/dL (7-18) 03/22/25 08:24 Creatinine 1.07 mg/dL (0.55-1.02) H 03/22/25 08:24 Est GFR (MDRD) Af Amer > 60 (>60) 03/22/25 08:24 Est GFR (MDRD) Non-Af 52 (>60) L 03/22/25 08:24 Glucose 205 mg/dL (65-99) H 03/22/25 08:24 Calcium 8.6 mg/dL (8.5-10.1) 03/22/25 08:24 Corrected Calcium TNP 03/22/25 08:24 Total Bilirubin 1.00 mg/dL (0.2-1.0) 03/22/25 08:24 AST 21 Units/L (15-37) 03/22/25 08:24 ALT 21 Units/L (12-78) 03/22/25 08:24 Alkaline Phosphatase 89 Units/L (46-116) 03/22/25 08:24 Total Protein 7.9 g/dL (6.4-8.2) 03/22/25 08:24 Albumin 3.5 g/dL (3.4-5.0) 03/22/25 08:24 Globulin 4.4 g/dL (2.5-4.5) 03/22/25 08:24 Albumin/Globulin Ratio 0.8 Ratio (1.1-2.1) L 03/22/25 08:24 Amylase 32 Units/L (25-115) 03/22/25 08:24 Lipase 24 Units/L (16-77) 03/22/25 08:24 Other Results Comments: Name: ANNEMARIE MARTINEZ : 1945 Sex: F Location: ER Order Number(s): [id number] Procedure(s):CT ABDOMEN/PELVIS W/O CON Ordering Physician: Geovany Barry Primary Care: Hang Mosqueda Service Date: 03/22/25 Service Time: 0812 EXAM: CT ABDOMEN AND PELVIS WITHOUT CONTRAST HISTORY: abd pain; gb & hernia repair COMPARISON: None. TECHNIQUE: Axial CT images were obtained through the abdomen and pelvis without contrast. Coronal and sagittal reformatted images were included. All CT scans at this facility use dose modulation, iterative reconstruction, and/or weight based dosing when appropriate to reduce radiation dose to as low as reasonably achievable. FINDINGS: Please note that without the use of intravenous contrast, evaluation of organ parenchyma is limited. Mild dependent lung atelectasis. Small hiatal hernia. Unenhanced liver is unremarkable. Prior cholecystectomy. Spleen, pancreas, adrenals, and kidneys are unremarkable. Mild aortoiliac atherosclerosis without aneurysm. The cecum is flipped into the midline anteriorly with surrounding wall thickening and edema. Cecum is distended up to 10 cm. Distal small-bowel loops are mildly distended up to 3 cm with internal air and fluid. No free peritoneal air or fluid. No evidence of perforation. Nondistended urinary bladder. Absent uterus. No free pelvic fluid. No acute osseous findings. Moderate lumbar spondylosis with grade 1 anterolisthesis at L4-L5. 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 There is mild surrounding edema with dilated distal small bowel loops but no evidence of obstruction. THIS IS AN ELECTRONICALLY VERIFIED FINAL REPORT 03/22/2025 9:26 AM - Electronically signed by Nader Sadler MD Name: ANNEMARIE MARTINEZ : 1945 Sex: F Location: ER Order Number(s): [id number] Procedure(s):BRAIN CT W/O CON Ordering Physician: Geovany Barry Primary Care: Hang Mosqueda Service Date: 03/22/25 Service Time: 0840 EXAM: CT HEAD WITHOUT CONTRAST HISTORY: ams; COMPARISON: None. .br.br.br without contrast. All CT scans at this facility use dose modulation, iterative reconstruction, and/or weight based dosing when appropriate to reduce radiation dose to as low as reasonably achievable. FINDINGS: BRAIN: There is mild diffuse atrophy with proportionate enlargement of the cerebral sulci and ventricular system. Decreased attenuation in the periventricular white matter is compatible with but not specific for chronic small vessel ischemic changes. No evidence of acute infarct intra or extraaxial hemorrhage mass effect or hydrocephalus. CALVARIUM: Normal ADDITIONAL FINDINGS: The visualized paranasal sinuses and mastoid air cells are clear. Orbits are grossly unremarkable. IMPRESSION: No evidence of acute intracranial process. THIS IS AN ELECTRONICALLY VERIFIED FINAL REPORT 03/22/2025 9:28 AM - Electronically signed by Nader Spears MD EKG Rate: 83 [place]: Normal Rhythm: NSR ST: Normal Opioid Opioid Risk Tool Age (Heri box if 16-45): No History of Preadolescent Sexual Abuse: No Total: 0 Total Score Risk Category: Low Risk Copyright: Castañeda predicting aberrant behaviors Discharge Plan Diagnosis Discharge Problem: Cecal volvulus Discharge Plan Patient Disposition: 09 ADMITTED INPATIENT Condition: Stable Prescriptions: No Action pantoprazole 40 MG tablet,delayed release (DR/EC) 40 mg PO BID Qty: 60 3RF Rx Instructions: TAKE ONE TABLET TWICE A DAY aspirin 81 mg tablet,delayed release (DR/EC) 81 mg PO QDAY losartan 50 mg tablet 50 mg PO BID lovastatin 40 mg tablet 40 mg PO QDAY sertraline 100 mg tablet 100 mg PO QDAY ondansetron 8 mg tablet,disintegrating 8 mg PO Q8H PRN (Reason: Nausea) bisoprolol fumarate 5 mg tablet 5 mg PO BID temazepam 30 mg capsule 30 mg PO QPM ropinirole 0.5 mg tablet 0.5 mg PO QDAY dicyclomine 10 mg capsule 10 mg PO TID PRN Health Concerns: Post Hospitalization: new medications and changes needed to prevent readmission or further decline. Pt educated and given instructions on all concerns. Plan of Treatment: Continue with present treatment and follow up plan. Pt is to keep follow up appointment as instructed and take medications as ordered. Orders to Discharge Patient Discharge Orders: Transfer (Routine); Ordered 03/22/25 Ordered By: Geovany Barry Follow ups/Referrals Follow ups/Referrals: Hang Mosqueda [Primary Care Provider, MEDICAL] - 3 days Instructions Stand Alone Forms: Find Help Web Site, Post Hospital Follow Up Care Print Language: GREENLANDIC
--- NOTE | 2025-03-22 09:59 | EKG ---
Test Reason : volvulus Blood Pressure : */* mmHG Vent. Rate : 83 BPM Atrial Rate : 83 BPM P-R Int : 132 ms QRS Dur : 80 ms QT Int : 384 ms P-R-T Axes : 38 7 -50 degrees QTc Int : 451 ms Normal sinus rhythm Marked ST abnormality, possible inferior subendocardial injury Abnormal ECG No previous ECGs available Confirmed by Mahendra Whyte MD ([id number]) on 03/23/2025 5:54:05 AM Referred By: Confirmed By: Mahendra Whyte MD
[2025-03-22] MEDS: NS 250 ML IV 25 ML IV PRN (10:05)
[2025-03-22] MEDS: ZOSYN VIAL 3.375 GRAMS 3.375 G in NS 100 ML IV 100 ML IV ONE (10:05)
[2025-03-22] MEDS ORDERED: ULTANE GAS IN ONE (10:07)
[2025-03-22] MEDS ORDERED: PRECEDEX INJ VIAL ONE (10:07)
[2025-03-22] MEDS ORDERED: KETAMINE HCL ONE (10:07)
[2025-03-22] MEDS ORDERED: XYLOCAINE 2 % (PLAIN) ONE (10:07)
[2025-03-22] MEDS ORDERED: MORPHINE SULFATE INJ 2 MG INJ ONE (11:18)
--- NOTE | 2025-03-22 11:23 | DR.H&P ---
H&P History & Physical for Day of: H&P Date: 03/22/25 Chief Complaint Chief Complaint: abdominal pain History of Present Illness History of Present Illness: Patient is a 79-year-old female with a past medical history of hypertension, hyperlipidemia, depression, GERD, presenting with abdominal pain that has been worsening since Wednesday. She has been having nausea as well. She reports having a bowel movement yesterday. Throughout the night she has had severe pain and abdominal swelling. Labs/imaging: WBC 18.2, hemoglobin 13.5, platelets 214, sodium 135, potassium 4.2, creatinine 1.07, glucose 205, lactic acid 2.6, CT abdomen pelvis was obtained that revealed cecal volvulus with wall thickening and distention up to 10 cm. Mild surrounding edema with dilated distal small bowel loops but no evidence of obstruction. Blood culture pending, UA is uncollected, chest x-ray was obtained that is pending results. Patient was admitted for cecal volvulus. General surgery was consulted and will see patient. Follow-up recommendations and treatment from surgery. Keep patient n.p.o., continue with IV fluids and IV antibiotics Zosyn. IV morphine as needed for pain. Otherwise continue with current treatment plan. Continue to closely monitor and follow-up labs/imaging. Time spent for clinical assessment, reviewing labs/imaging, physical exam, decision making and documentation greater than 45 mins. Past Medical History Past Medical History: Anemia, Anxiety, Coronary Artery Disease, CVA, Depression, Diabetes, Dyslipidemia, GERD, Hypertension and Sleep Apnea Additional Medical History: IBS, HIATAL HERNIA Past Surgical History Surgical History: Cholecystectomy, Hysterectomy and Other Additional Surgical History: Bladder tack-approximately 10 years ago Family History Family Medical History: Cancer Social History Does any household member use tobacco: No Alcohol Use: None Medications Home Medications: Home Medications Medication Instructions Recorded Confirmed Type aspirin 81 mg tablet,delayed 81 mg PO QDAY 03/23/23 History release bisoprolol fumarate 5 mg tablet 5 mg PO BID 03/22/25 1 05/22/24 History dicyclomine 10 mg capsule 10 mg PO TID PRN 03/22/25 History losartan 50 mg tablet 50 mg PO BID 03/22/25 History lovastatin 40 mg tablet 40 mg PO QDAY 03/22/2503/22 History ondansetron 8 mg disintegrating 8 mg PO Q8H PRN Nausea 03/22/25 03/22/25 History tablet ropinirole 0.5 mg tablet 0.5 mg PO QDAY 03/22/2503/10 History sertraline 100 mg tablet 100 mg PO QDAY 03/22/2503/10 History temazepam 30 mg capsule 30 mg PO QPM 03/22/25 History Allergies Allergies Allergy/AdvReac Type Severity Reaction Status Date / Time No Known Drug Allergies Allergy Verified 03/22/25 08:35 Labs 03/22/25 08:24 03/22/25 08:24 Labs: Laboratory WBC 18.2 X10^3/uL (3.6-10.0) H 03/22/25 08:24 RBC 4.61 X10^6/uL (3.5-5.4) 03/22/25 08:24 Hgb 13.5 g/dL (12.0-16.0) 03/22/25 08:24 Hct 40.1 % (36.0-47.0) 03/22/25 08:24 MCV 86.8 fL (80.0-100.0) 03/22/25 08:24 MCH 29.3 pg (27.0-34.0) 03/22/25 08:24 MCHC 33.8 g/dL (33.0-35.0) 03/22/25 08:24 RDW 13.2 % (11.6-16.5) 03/22/25 08:24 Plt Count 214 X10^3/uL (150.0-450.0) 03/22/25 08:24 Plt Count Comment Adequate (ADEQUATE) 03/22/25 08:24 MPV 7.6 fL (7.4-11.0) 03/22/25 08:24 Neut % (Auto) 87.9 % (42.0-75.0) H 03/22/25 08:24 Lymph % (Auto) 4.3 % (21.0-51.0) L 03/22/25 08:24 [place] % (Auto) 7.4 % (0.0-13.0) 03/22/25 08:24 Eos % (Auto) 0.1 % (0.9-2.9) L 03/22/25 08:24 Baso % (Auto) 0.3 % (0.2-1.0) 03/22/25 08:24 Neut # (Auto) 16.0 x10^3/uL (2.2-4.8) H 03/22/25 08:24 Lymph # (Auto) 0.8 X10^3/uL (1.3-2.9) L 03/22/25 08:24 [place] # (Auto) 1.3 x10^3/uL (0.3-0.8) H 03/22/25 08:24 Eos # (Auto) 0.0 x10^3/uL (0.0-0.2) 03/22/25 08:24 Baso # (Auto) 0.1 X10^3/uL (0.0-0.1) 03/22/25 08:24 Absolute Nucleated RBC 0.0 /100WBC 03/22/25 08:24 Total Counted 100 03/22/25 08:24 Neutrophils % (Manual) 82 % (39-76) H 03/22/25 08:24 Band Neutrophils % 4 % (0-10) 03/22/25 08:24 Lymphocytes % (Manual) 11 % (13-43) L 03/22/25 08:24 Monocytes % (Manual) 3 % (4-9) L 03/22/25 08:24 Plt Morphology Comment Normal (NORMAL) 03/22/25 08:24 RBC Morphology Normal (NORMAL) 03/22/25 08:24 Sodium 132 mmol/L (136-145) L 03/22/25 08:24 Corrected Sodium 135 mmol/L (136-145) L 03/22/25 08:24 Potassium 4.2 mmol/L (3.5-5.1) 03/22/25 08:24 Chloride 98 mmol/L (98-107) 03/22/25 08:24 Carbon Dioxide 26.1 mmol/L (21-32) 03/22/25 08:24 BUN 17 mg/dL (7-18) 03/22/25 08:24 Creatinine 1.07 mg/dL (0.55-1.02) H 03/22/25 08:24 Est GFR (MDRD) Af Amer > 60 (>60) 03/22/25 08:24 Est GFR (MDRD) Non-Af 52 (>60) L 03/22/25 08:24 Glucose 205 mg/dL (65-99) H 03/22/25 08:24 Lactic Acid 2.6 mmol/L (0.4-2.0) H 03/22/25 09:23 Calcium 8.6 mg/dL (8.5-10.1) 03/22/25 08:24 Corrected Calcium TNP 03/22/25 08:24 Total Bilirubin 1.00 mg/dL (0.2-1.0) 03/22/25 08:24 AST 21 Units/L (15-37) 03/22/25 08:24 ALT 21 Units/L (12-78) 03/22/25 08:24 Alkaline Phosphatase 89 Units/L (46-116) 03/22/25 08:24 Total Protein 7.9 g/dL (6.4-8.2) 03/22/25 08:24 Albumin 3.5 g/dL (3.4-5.0) 03/22/25 08:24 Globulin 4.4 g/dL (2.5-4.5) 03/22/25 08:24 Albumin/Globulin Ratio 0.8 Ratio (1.1-2.1) L 03/22/25 08:24 Amylase 32 Units/L (25-115) 03/22/25 08:24 Lipase 24 Units/L (16-77) 03/22/25 08:24 Review of Systems Constitutional: Weakness Eyes: No Symptoms Reported ENT: No Symptoms Reported Respiratory: No Symptoms Reported Cardiovascular: No Symptoms Reported Gastrointestinal: Nausea and Abdominal Pain Genitourinary: No Symptoms Reported Musculoskeletal: No Symptoms Reported Skin: No Symptoms Reported Neurological: No Symptoms Reported Physical Exam Vital Signs: Vital Signs Temperature 98.8 F Pulse Rate [Left Radial] 79 Pulse Rate 80 Pulse Rate 82 Pulse Rate 81 Pulse Rate 81 Pulse Rate 77 Pulse Rate 75 Pulse Rate 71 Pulse Rate 69 Pulse Rate 71 Pulse Rate 76 Pulse Rate 76 Pulse Rate 73 Pulse Rate 73 Pulse Rate 75 Pulse Rate 75 Respiratory Rate 20 Respiratory Rate 16 Blood Pressure [Right Arm] 163/70 Blood Pressure 162/70 Blood Pressure 188/97 Blood Pressure 201/84 Blood Pressure 220/95 Blood Pressure 225/95 Blood Pressure 186/79 Blood Pressure 186/79 O2 Sat by Pulse Oximetry 98 O2 Sat by Pulse Oximetry 97 O2 Sat by Pulse Oximetry 99 O2 Sat by Pulse Oximetry 99 O2 Sat by Pulse Oximetry 98 O2 Sat by Pulse Oximetry 98 O2 Sat by Pulse Oximetry 97 O2 Sat by Pulse Oximetry 96 O2 Sat by Pulse Oximetry 97 O2 Sat by Pulse Oximetry 95 O2 Sat by Pulse Oximetry 96 O2 Sat by Pulse Oximetry 96 O2 Sat by Pulse Oximetry 97 O2 Sat by Pulse Oximetry 97 O2 Sat by Pulse Oximetry 97 O2 Sat by Pulse Oximetry 95 Oriented: Person and Place Eyes: Normal Ear: Normal Nose: Normal Throat: Normal Respiratory: Clear Throughout Cardiovascular: Normal : Normal Auscultation: Bowel Sounds: Decreased Palpation: Normal Tenderness: Diffuse and Moderate Skin: Normal Musculoskeletal: Normal Psychiatric: Normal Mood Description: Calm and Appropriate Affect: Normal Speech Pattern: Clear and Appropriate Assessment/Plan (1) Cecal volvulus: Status: Acute Plan: Stat General Surgery consult IVF, NPO, IV abx. (2) HTN (hypertension): Qualifiers: Hypertension type: essential hypertension Qualified Code(s): I10 - Essential (primary) hypertension Status: Acute (3) Hyperlipidemia: Status: Acute (4) MDD (major depressive disorder): Status: Acute (5) GERD (gastroesophageal reflux disease): Qualifiers: Esophagitis presence: esophagitis presence not specified Qualified Code(s): K21.9 - Gastro-esophageal reflux disease without esophagitis Status: Acute Review H&P Reviewed: Yes Patient was examined?: Yes
[2025-03-22] MEDS: MORPHINE SULFATE INJ 2 MG INJ IVP ONE (11:24)
[2025-03-22] MEDS ORDERED: NS 250 ML IV 25 ML IV PRN (11:56)
[2025-03-22] MEDS ORDERED: NS 1,000 ML IV 1,000 ML IV SCH (11:56)
[2025-03-22] MEDS: ZOSYN VIAL 3.375 GRAMS 3.375 G in NS 100 ML IV 100 ML IV SCH (11:56)
[2025-03-22] MEDS ORDERED: CONSULT PHARMACY - POTASSIUM & MAGNESIUM XX SCH (11:56)
[2025-03-22] MEDS ORDERED: TYLENOL 325 MG TAB PO PRN (11:56)
[2025-03-22] MEDS ORDERED: NovoLIN R (or HumuLIN R) SUBCUT PRN (11:56)
[2025-03-22] MEDS ORDERED: ULTRAM PO PRN (11:56)
--- NOTE | 2025-03-22 12:56 | RAD ---
EXAMINATION: CHEST, 1 VIEW HISTORY: cecal volvulus, PRE OP; . COMPARISON STUDY: 03/23/2023 TECHNIQUE: A single view of the chest was obtained. FINDINGS: . Heart size is mildly enlarged. No acute infiltrates. There is no pneumothorax. Hilar and mediastinal structures and bony structures are unremarkable. . IMPRESSION: No acute process in the chest. THIS IS AN ELECTRONICALLY VERIFIED FINAL REPORT 03/22/2025 12:52 PM - Electronically signed by Rolando Ricardo MD
[2025-03-22] MEDS ORDERED: BENADRYL INJ 50 MG VIAL IVP PRN (13:59)
[2025-03-22] MEDS ORDERED: BARHEMSYS INJ IVP PRN (13:59)
[2025-03-22] MEDS ORDERED: DILAUDID INJ IVP PRN (13:59)
[2025-03-22] MEDS ORDERED: ZOFRAN INJ 4 MG VIAL IVP PRN (13:59)
[2025-03-22 14:06] LABS: BLOOD/HEMOGLOBIN,URINE 1+ (NEGATIVE); LEUKOCYTE ESTERASE ,URINE 3+ (NEGATIVE); NITRITES,URINE POSITIVE (NEGATIVE)
[2025-03-22] MEDS: DIPRIVAN VIAL 20 ML ONE (14:13)
[2025-03-22] MEDS: OFIRMEV IV 1000 MG VIAL 1,000 MG/100 ML VIAL IV ONE (14:13)
[2025-03-22 14:15] LABS: APPEARANCE,URINE HAZY (CLEAR)
[2025-03-22 14:16] LABS: SQUAMOUS EPITHELIAL CELL,UR MODERATE /HPF (NEGATIVE)
[2025-03-22] MEDS: ZEMURON 100 MG VIAL ONE (14:16)
[2025-03-22] MEDS: FENTANYL VIAL INJ 100 mcg ONE (14:17)
[2025-03-22] MEDS: VERSED ONE (14:17)
[2025-03-22] MEDS: ZOFRAN INJ 4 MG VIAL ONE (14:46)
[2025-03-22] MEDS: PEPCID 20 MG VIAL ONE (14:47)
[2025-03-22] MEDS: LR 1,000 ML IV 1,000 ML IV ONE ×3 (14:58→17:19)
[2025-03-22] MEDS: FLAGYL IV PREMIX 500 MG BAG 500 MG/100 ML BAG IV ONE (15:18)
[2025-03-22] MEDS: ZOFRAN INJ 4 MG VIAL IVP PRN (15:25)
[2025-03-22] MEDS: LR 1,000 ML IV 2,400 ML IV PRN (15:25)
[2025-03-22] MEDS: PEPCID 20 MG VIAL IVP PRN (15:25)
[2025-03-22] MEDS: VERSED IVP PRN (15:28)
[2025-03-22] MEDS: FENTANYL VIAL INJ 100 mcg IVP PRN (15:35)
[2025-03-22] MEDS: DIPRIVAN VIAL 140 ML IVP PRN (15:35)
[2025-03-22] MEDS: XYLOCAINE 2 % (PLAIN) INJ PRN (15:35)
[2025-03-22] MEDS: KETAMINE HCL IV PRN (15:35)
[2025-03-22] MEDS: DANTRIUM IVP PRN (15:51)
[2025-03-22] MEDS: DILAUDID INJ ONE (16:00)
[2025-03-22] MEDS: OFIRMEV IV 1000 MG VIAL 1,000 MG/100 ML VIAL IV PRN (16:03)
[2025-03-22] MEDS: MARCAINE 0.5% ONE (16:05)
[2025-03-22] MEDS: POLYMYXIN B SULFATE ONE ×2 (16:06→17:24)
[2025-03-22] MEDS: BRIDION ONE (16:06)
[2025-03-22] MEDS: ZEMURON 100 MG VIAL IVP PRN (16:56)
[2025-03-22] MEDS: PRECEDEX INJ VIAL IVP PRN (17:04)
[2025-03-22] MEDS: NEO-SYNEPHRINE INJ IVP PRN (17:19)
[2025-03-22] MEDS: BRIDION IVP PRN (17:44)
[2025-03-22] MEDS: DILAUDID INJ IVP PRN (17:51)
[2025-03-22] MEDS: APRESOLINE INJ 20 MG VIAL ONE (18:33)
[2025-03-22] MEDS: D5 1/2 NS 1,000 ML 1,000 ML IV SCH (19:29)
--- NOTE | 2025-03-22 19:59 | RAD ---
EXAM: CHEST, 1 VIEW HISTORY: central line placement; central line placement COMPARISON: March 22, 2025 at 9:57 a.m. TECHNIQUE: Chest radiographic imaging, AP portable projection, 2 images FINDINGS: No cardiomegaly. No focal airspace disease. No pleural effusion. No pneumothorax. No acute osseous abnormality. Esophagogastric tube tip is in the body of the stomach; based on the side port positioning. IMPRESSION: 1. No significant interval acute cardiopulmonary changes. 2. Esophagogastric tube tip is in the body of the stomach; based on the side port positioning. THIS IS AN ELECTRONICALLY VERIFIED FINAL REPORT 03/22/2025 7:56 PM - Electronically signed by Carl Ortega MD
[2025-03-22] MEDS: SNACK - Diabetic Appropriate PO SCH (20:53)
[2025-03-22] MEDS: PROTONIX INJ 40 MG VIAL IVP SCH (21:38)
[2025-03-22] MEDS: COZAAR PO SCH (21:39)
[2025-03-22] MEDS: ZEBETA TAB 5 MG PO SCH (21:40)
[2025-03-23 05:26] LABS: MEAN PLATELET VOLUME 7.8 fL (7.4-11.0); RED CELL DISTRIBUTION WIDTH 13.8 % (11.6-16.5)
[2025-03-23 05:36] LABS: COR CA(FOR HYPOALB) 9.2 mg/dL (8.5-10.1); COR NA(FOR HYPERGLY) 135 mmol/L (136-145); CREATININE 1.08 mg/dL (0.55-1.02); eGFR NON BLACK RACES 52 (>60)
[2025-03-23] MEDS: ZOFRAN INJ 4 MG VIAL IVP PRN (06:15)
[2025-03-23] MEDS: MORPHINE SULFATE INJ 2 MG INJ IVP PRN (06:28)
[2025-03-23] MEDS: ZOLOFT PO SCH (08:30)
[2025-03-23] MEDS: REQUIP PO SCH (08:30)
[2025-03-23] MEDS: VASOTEC INJ 2.5 MG VIAL IVP PRN (09:30)
[2025-03-23] MEDS: LOVENOX INJ 40 MG SYR SC SCH (10:45)
--- NOTE | 2025-03-23 12:29 | DR.PROGNOT ---
HOSPITAL PROGRESS NOTE Progress Note for Day of: Progress Note Date: 03/23/25 Chief Complaint Chief Complaint: Postoperative day 1. Status post expiratory laparotomy, lysis of adhesions and right colectomy to include terminal ileum and cecum with primary anastomosis. Patient is doing fairly well with fair urine output and only mild drainage through NG tube and TIFFANY. White count 12.3, hemoglobin 12.3, BUN 24, creatinine 1.08, electrolytes are normal. Patient is afebrile, clear lung, abdomen is diffusely tender but less than prior to surgery. Past Medical Family Social History Allergies: Allergies No Known Drug Allergies Allergy (Verified 03/22/25 08:35) Vital Signs Vital Signs: Vital Signs Temperature 98.4 F Pulse Rate [Left Radial] 78 Pulse Rate [Left Radial] 74 Pulse Rate [Left Radial] 76 Pulse Rate [Left Radial] 75 Pulse Rate [Left Radial] 74 Pulse Rate [Left Radial] 71 Pulse Rate [Left Radial] 73 Pulse Rate [Left Radial] 77 Respiratory Rate 20 Respiratory Rate 20 Respiratory Rate 20 Respiratory Rate 18 Respiratory Rate 20 Respiratory Rate 19 Respiratory Rate 18 Respiratory Rate 18 Respiratory Rate 18 Respiratory Rate 18 Blood Pressure [Right Arm] 138/62 Blood Pressure [Right Arm] 143/66 Blood Pressure [Right Arm] 150/57 Blood Pressure [Right Arm] 158/68 Blood Pressure [Right Arm] 159/70 Blood Pressure [Right Arm] 180/70 Blood Pressure [Right Arm] 155/69 Blood Pressure [Right Arm] 172/77 Blood Pressure [Right Arm] 157/70 Blood Pressure [Right Arm] 168/72 Blood Pressure [Right Arm] 160/70 O2 Sat by Pulse Oximetry 98 O2 Sat by Pulse Oximetry 99 O2 Sat by Pulse Oximetry 98 O2 Sat by Pulse Oximetry 98 O2 Sat by Pulse Oximetry 99 O2 Sat by Pulse Oximetry 98 O2 Sat by Pulse Oximetry 98 O2 Sat by Pulse Oximetry 98 Physical Exam Oriented: Person and Place Eyes: Normal Ear: Normal Nose: Normal Throat: Normal Cardiovascular: Normal : Normal GI:Auscultation: Decreased GI:Palpation: Normal GI: Tenderness: Diffuse and Moderate Skin: Normal Musculoskeletal: Normal Psychiatric: Normal Mood Description: Calm Affect: Normal Speech Pattern: Clear and Appropriate Laboratory and Diagnostics 03/23/25 04:47 03/23/25 04:47 Labs: 03/22/25 15:54 Peritoneal Fluid Wound Gram Stain - Final 03/22/25 15:54 Peritoneal Fluid Wound Culture - Preliminary 03/22/25 13:50 Urine,Catheterized Urine Culture - Preliminary Laboratory WBC 12.3 X10^3/uL (3.6-10.0) H 03/23/25 04:47 RBC 4.17 X10^6/uL (3.5-5.4) 03/23/25 04:47 Hgb 12.3 g/dL (12.0-16.0) 03/23/25 04:47 Hct 36.3 % (36.0-47.0) 03/23/25 04:47 MCV 87.1 fL (80.0-100.0) 03/23/25 04:47 MCH 29.4 pg (27.0-34.0) 03/23/25 04:47 MCHC 33.8 g/dL (33.0-35.0) 03/23/25 04:47 RDW 13.8 % (11.6-16.5) 03/23/25 04:47 Plt Count 173 X10^3/uL (150.0-450.0) 03/23/25 04:47 Plt Count Comment Adequate (ADEQUATE) 03/22/25 08:24 MPV 7.8 fL (7.4-11.0) 03/23/25 04:47 Neut % (Auto) 83.7 % (42.0-75.0) H 03/23/25 04:47 Lymph % (Auto) 7.2 % (21.0-51.0) L 03/23/25 04:47 [place] % (Auto) 8.8 % (0.0-13.0) 03/23/25 04:47 Eos % (Auto) 0.1 % (0.9-2.9) L 03/23/25 04:47 Baso % (Auto) 0.2 % (0.2-1.0) 03/23/25 04:47 Neut # (Auto) 10.3 x10^3/uL (2.2-4.8) H 03/23/25 04:47 Lymph # (Auto) 0.9 X10^3/uL (1.3-2.9) L 03/23/25 04:47 [place] # (Auto) 1.1 x10^3/uL (0.3-0.8) H 03/23/25 04:47 Eos # (Auto) 0.0 x10^3/uL (0.0-0.2) 03/23/25 04:47 Baso # (Auto) 0.0 X10^3/uL (0.0-0.1) 03/23/25 04:47 Absolute Nucleated RBC 0.0 /100WBC 03/23/25 04:47 Total Counted 100 03/22/25 08:24 Neutrophils % (Manual) 82 % (39-76) H 03/22/25 08:24 Band Neutrophils % 4 % (0-10) 03/22/25 08:24 Lymphocytes % (Manual) 11 % (13-43) L 03/22/25 08:24 Monocytes % (Manual) 3 % (4-9) L 03/22/25 08:24 Plt Morphology Comment Normal (NORMAL) 03/22/25 08:24 RBC Morphology Normal (NORMAL) 03/22/25 08:24 Sodium 133 mmol/L (136-145) L 03/23/25 04:47 Corrected Sodium 135 mmol/L (136-145) L 03/23/25 04:47 Potassium 4.0 mmol/L (3.5-5.1) 03/23/25 04:47 Chloride 101 mmol/L (98-107) 03/23/25 04:47 Carbon Dioxide 25.7 mmol/L (21-32) 03/23/25 04:47 BUN 24 mg/dL (7-18) H 03/23/25 04:47 Creatinine 1.08 mg/dL (0.55-1.02) H 03/23/25 04:47 Est GFR (MDRD) Af Amer > 60 (>60) 03/23/25 04:47 Est GFR (MDRD) Non-Af 52 (>60) L 03/23/25 04:47 Glucose 170 mg/dL (65-99) H 03/23/25 04:47 POC Glucose (mg/dL) 141 mg/dL (65-99) H 03/23/25 11:58 Lactic Acid 1.8 mmol/L (0.4-2.0) 03/22/25 20:12 Calcium 7.8 mg/dL (8.5-10.1) L 03/23/25 04:47 Corrected Calcium 9.2 mg/dL (8.5-10.1) 03/23/25 04:47 Total Bilirubin 1.00 mg/dL (0.2-1.0) 03/23/25 04:47 AST 27 Units/L (15-37) 03/23/25 04:47 ALT 30 Units/L (12-78) 03/23/25 04:47 Alkaline Phosphatase 63 Units/L (46-116) 03/23/25 04:47 Total Protein 6.1 g/dL (6.4-8.2) L 03/23/25 04:47 Albumin 2.3 g/dL (3.4-5.0) L 03/23/25 04:47 Globulin 3.8 g/dL (2.5-4.5) 03/23/25 04:47 Albumin/Globulin Ratio 0.6 Ratio (1.1-2.1) L 03/23/25 04:47 Amylase 32 Units/L (25-115) 03/22/25 08:24 Lipase 24 Units/L (16-77) 03/22/25 08:24 Specimen Type Catherized urine 03/22/25 13:50 Urine Color Dark yellow (YELLOW) 03/22/25 13:50 Urine Appearance Hazy (CLEAR) 03/22/25 13:50 Urine pH 5.0 (5.0 - 8.0) 03/22/25 13:50 Ur Specific [place] 1.025 (1.000-1.030) 03/22/25 13:50 Urine Protein 3+ (NEGATIVE) 03/22/25 13:50 Urine Glucose (UA) Negative (NEGATIVE) 03/22/25 13:50 Urine Ketones Negative (NEGATIVE) 03/22/25 13:50 Urine Blood 1+ (NEGATIVE) 03/22/25 13:50 Urine Nitrite Positive (NEGATIVE) 03/22/25 13:50 Urine Bilirubin Negative (NEGATIVE) 03/22/25 13:50 Urine Urobilinogen Normal (NORMAL) 03/22/25 13:50 Ur Leukocyte Esterase 3+ (NEGATIVE) 03/22/25 13:50 Urine RBC 3-5 /HPF (0-3) A 03/22/25 13:50 Urine WBC 30-50 /HPF (0-5) A 03/22/25 13:50 Ur Squamous Epith Cells Moderate /HPF (NEGATIVE) 03/22/25 13:50 Urine Bacteria 2+ /HPF (NEGATIVE) 03/22/25 13:50 Ur Culture Indicated? Yes/culture set up 03/22/25 13:50 Assessment and Plan 1: Status post laparotomy, lysis of adhesions, right colectomy to include the cecum terminal ileum and part of the right colon day 1. Same postoperative care, will keep the NG tube in place, keep the catheter for monitoring, DVT prophylaxis, IV antibiotics. 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
[2025-03-23] MEDS: CRESTOR TAB 10 MG PO SCH (20:25)
[2025-03-23] MEDS: NORCO 5/325 MG TAB PO PRN (20:30)
[2025-03-24 05:38] LABS: MEAN PLATELET VOLUME 8.2 fL (7.4-11.0); RED CELL DISTRIBUTION WIDTH 13.5 % (11.6-16.5)
[2025-03-24 05:52] LABS: COR CA(FOR HYPOALB) 9.4 mg/dL (8.5-10.1); COR NA(FOR HYPERGLY) 140 mmol/L (136-145); CREATININE 0.90 mg/dL (0.55-1.02); eGFR NON BLACK RACES > 60 (>60)
[2025-03-24] MEDS ORDERED: CONSULT PHARMACY - POTASSIUM & MAGNESIUM XX SCH (07:00)
[2025-03-24] MEDS: K-DUR TAB 20 MEQ PO SCH (08:41)
--- NOTE | 2025-03-24 09:10 | PCM.PROG ---
Progress Note Progress Note for Day of Date of Exam: 03/23/25 Subjective Subjective: Patient is status post expiratory laparotomy, lysis of adhesions and right colectomy to include terminal ileum and cecum with primary anastomosis. This morning she is resting in bed. No acute events overnight. She does have some abdominal pain that is managed with medication. She does have NGT and TIFFANY drain. Labs/imaging: WBC 12.3, hemoglobin 12.3, platelets 173, sodium 135, potassium 4.0, creatinine 1.08, glucose 170, blood/wound/urine culture pending. Patient is currently on D5 half-normal saline at 125 mL/h. IV antibiotics Zosyn. Her blood pressure has been elevated likely due to pain. Will add on IV medication prn for better control. Follow-up with surgery recommendations. Otherwise continue with current treatment plan. Continue closely monitor follow-up labs/imaging. Past Medical Family Social History Allergies: Allergies No Known Drug Allergies Allergy (Verified 03/22/25 08:35) Review of Systems ROS changes noted: see HPI Vital Signs and I&O's Vital Signs: Vital Signs Temperature 98.6 F Temperature 98.4 F Pulse Rate [Left Radial] 81 Pulse Rate [Left Radial] 78 Pulse Rate [Left Radial] 74 Pulse Rate [Left Radial] 76 Pulse Rate [Left Radial] 75 Pulse Rate [Left Radial] 74 Pulse Rate [Left Radial] 71 Respiratory Rate 18 Respiratory Rate 20 Respiratory Rate 20 Respiratory Rate 20 Respiratory Rate 18 Respiratory Rate 20 Respiratory Rate 19 Respiratory Rate 18 Respiratory Rate 18 Blood Pressure [Right Arm] 146/67 Blood Pressure [Right Arm] 138/62 Blood Pressure [Right Arm] 143/66 Blood Pressure [Right Arm] 150/57 Blood Pressure [Right Arm] 158/68 Blood Pressure [Right Arm] 159/70 Blood Pressure [Right Arm] 180/70 Blood Pressure [Right Arm] 155/69 Blood Pressure [Right Arm] 172/77 Blood Pressure [Right Arm] 157/70 O2 Sat by Pulse Oximetry 96 O2 Sat by Pulse Oximetry 98 O2 Sat by Pulse Oximetry 99 O2 Sat by Pulse Oximetry 98 O2 Sat by Pulse Oximetry 98 O2 Sat by Pulse Oximetry 99 O2 Sat by Pulse Oximetry 98 Intake and Output: Intake & Output 03/20/25 03/21/25 03/22/25 03/23/25 23:59 23:59 23:59 23:59 Intake Total 9150 / 9150 800 / 800 Output Total 2635 / 2635 405 / 405 Balance 6515 / 6515 395 / 395 Physical Exam Oriented: Person and Place Eyes: Normal Ear: Normal Nose: Normal Throat: Normal Respiratory: Normal Cardiovascular: Normal : Normal Auscultation: Bowel Sounds: Decreased Tenderness: Diffuse and Moderate Skin: Normal Musculoskeletal: Normal Psychiatric: Normal Mood Description: Calm Affect: Normal Speech Pattern: Clear and Appropriate Laboratory and Diagnostics 03/24/25 04:25 03/24/25 04:25 Labs: 03/22/25 15:54 Peritoneal Fluid Wound Gram Stain - Final 03/22/25 15:54 Peritoneal Fluid Wound Culture - Preliminary 03/22/25 13:50 Urine,Catheterized Urine Culture - Preliminary Laboratory WBC 12.3 X10^3/uL (3.6-10.0) H 03/23/25 04:47 RBC 4.17 X10^6/uL (3.5-5.4) 03/23/25 04:47 Hgb 12.3 g/dL (12.0-16.0) 03/23/25 04:47 Hct 36.3 % (36.0-47.0) 03/23/25 04:47 MCV 87.1 fL (80.0-100.0) 03/23/25 04:47 MCH 29.4 pg (27.0-34.0) 03/23/25 04:47 MCHC 33.8 g/dL (33.0-35.0) 03/23/25 04:47 RDW 13.8 % (11.6-16.5) 03/23/25 04:47 Plt Count 173 X10^3/uL (150.0-450.0) 03/23/25 04:47 Plt Count Comment Adequate (ADEQUATE) 03/22/25 08:24 MPV 7.8 fL (7.4-11.0) 03/23/25 04:47 Neut % (Auto) 83.7 % (42.0-75.0) H 03/23/25 04:47 Lymph % (Auto) 7.2 % (21.0-51.0) L 03/23/25 04:47 [place] % (Auto) 8.8 % (0.0-13.0) 03/23/25 04:47 Eos % (Auto) 0.1 % (0.9-2.9) L 03/23/25 04:47 Baso % (Auto) 0.2 % (0.2-1.0) 03/23/25 04:47 Neut # (Auto) 10.3 x10^3/uL (2.2-4.8) H 03/23/25 04:47 Lymph # (Auto) 0.9 X10^3/uL (1.3-2.9) L 03/23/25 04:47 [place] # (Auto) 1.1 x10^3/uL (0.3-0.8) H 03/23/25 04:47 Eos # (Auto) 0.0 x10^3/uL (0.0-0.2) 03/23/25 04:47 Baso # (Auto) 0.0 X10^3/uL (0.0-0.1) 03/23/25 04:47 Absolute Nucleated RBC 0.0 /100WBC 03/23/25 04:47 Total Counted 100 03/22/25 08:24 Neutrophils % (Manual) 82 % (39-76) H 03/22/25 08:24 Band Neutrophils % 4 % (0-10) 03/22/25 08:24 Lymphocytes % (Manual) 11 % (13-43) L 03/22/25 08:24 Monocytes % (Manual) 3 % (4-9) L 03/22/25 08:24 Plt Morphology Comment Normal (NORMAL) 03/22/25 08:24 RBC Morphology Normal (NORMAL) 03/22/25 08:24 Sodium 133 mmol/L (136-145) L 03/23/25 04:47 Corrected Sodium 135 mmol/L (136-145) L 03/23/25 04:47 Potassium 4.0 mmol/L (3.5-5.1) 03/23/25 04:47 Chloride 101 mmol/L (98-107) 03/23/25 04:47 Carbon Dioxide 25.7 mmol/L (21-32) 03/23/25 04:47 BUN 24 mg/dL (7-18) H 03/23/25 04:47 Creatinine 1.08 mg/dL (0.55-1.02) H 03/23/25 04:47 Est GFR (MDRD) Af Amer > 60 (>60) 03/23/25 04:47 Est GFR (MDRD) Non-Af 52 (>60) L 03/23/25 04:47 Glucose 170 mg/dL (65-99) H 03/23/25 04:47 POC Glucose (mg/dL) 141 mg/dL (65-99) H 03/23/25 11:58 Lactic Acid 1.8 mmol/L (0.4-2.0) 03/22/25 20:12 Calcium 7.8 mg/dL (8.5-10.1) L 03/23/25 04:47 Corrected Calcium 9.2 mg/dL (8.5-10.1) 03/23/25 04:47 Total Bilirubin 1.00 mg/dL (0.2-1.0) 03/23/25 04:47 AST 27 Units/L (15-37) 03/23/25 04:47 ALT 30 Units/L (12-78) 03/23/25 04:47 Alkaline Phosphatase 63 Units/L (46-116) 03/23/25 04:47 Total Protein 6.1 g/dL (6.4-8.2) L 03/23/25 04:47 Albumin 2.3 g/dL (3.4-5.0) L 03/23/25 04:47 Globulin 3.8 g/dL (2.5-4.5) 03/23/25 04:47 Albumin/Globulin Ratio 0.6 Ratio (1.1-2.1) L 03/23/25 04:47 Amylase 32 Units/L (25-115) 03/22/25 08:24 Lipase 24 Units/L (16-77) 03/22/25 08:24 Specimen Type Catherized urine 03/22/25 13:50 Urine Color Dark yellow (YELLOW) 03/22/25 13:50 Urine Appearance Hazy (CLEAR) 03/22/25 13:50 Urine pH 5.0 (5.0 - 8.0) 03/22/25 13:50 Ur Specific [place] 1.025 (1.000-1.030) 03/22/25 13:50 Urine Protein 3+ (NEGATIVE) 03/22/25 13:50 Urine Glucose (UA) Negative (NEGATIVE) 03/22/25 13:50 Urine Ketones Negative (NEGATIVE) 03/22/25 13:50 Urine Blood 1+ (NEGATIVE) 03/22/25 13:50 Urine Nitrite Positive (NEGATIVE) 03/22/25 13:50 Urine Bilirubin Negative (NEGATIVE) 03/22/25 13:50 Urine Urobilinogen Normal (NORMAL) 03/22/25 13:50 Ur Leukocyte Esterase 3+ (NEGATIVE) 03/22/25 13:50 Urine RBC 3-5 /HPF (0-3) A 03/22/25 13:50 Urine WBC 30-50 /HPF (0-5) A 03/22/25 13:50 Ur Squamous Epith Cells Moderate /HPF (NEGATIVE) 03/22/25 13:50 Urine Bacteria 2+ /HPF (NEGATIVE) 03/22/25 13:50 Ur Culture Indicated? Yes/culture set up 03/22/25 13:50 Plan (1) Cecal volvulus: Status: Acute Plan: Stat General Surgery consult IVF, NPO, IV abx. (2) HTN (hypertension): Status: Acute Qualifiers: Hypertension type: essential hypertension Qualified Code(s): I10 - Essential (primary) hypertension (3) Hyperlipidemia: Status: Acute (4) MDD (major depressive disorder): Status: Acute (5) GERD (gastroesophageal reflux disease): Status: Acute Qualifiers: Esophagitis presence: esophagitis presence not specified Qualified Code(s): K21.9 - Gastro-esophageal reflux disease without esophagitis
--- NOTE | 2025-03-24 10:58 | DR.PROGNOT ---
HOSPITAL PROGRESS NOTE Progress Note for Day of: Progress Note Date: 03/24/25 Chief Complaint Chief Complaint: Postoperative day 2, Status post expiratory laparotomy, lysis of adhesions and right colectomy to include terminal ileum and cecum with primary anastomosis. Patient is doing fairly well with fair urine output and only mild drainage through NG tube and TIFFANY. White count 10.1, hemoglobin 10,1, BUN/creatinine are normal, electrolytes are normal. Patient is afebrile, clear lung, abdomen is diffusely tender but less than prior to surgery. Past Medical Family Social History Allergies: Allergies No Known Drug Allergies Allergy (Verified 03/22/25 08:35) Review Of Systems Changes in ROS: see HPI Vital Signs Vital Signs: Vital Signs Temperature 97.8 F Temperature 98.1 F Pulse Rate [Left Radial] 70 Pulse Rate [Left Radial] 69 Pulse Rate [Left Radial] 71 Pulse Rate [Left Radial] 72 Pulse Rate 71 Pulse Rate 73 Pulse Rate 74 Pulse Rate 71 Respiratory Rate 20 Respiratory Rate 20 Respiratory Rate 21 Respiratory Rate 20 Respiratory Rate 20 Respiratory Rate 20 Respiratory Rate 20 Respiratory Rate 20 Respiratory Rate 18 Blood Pressure [Right Arm] 157/70 Blood Pressure [Right Arm] 152/67 Blood Pressure [Right Arm] 147/65 Blood Pressure [Right Arm] 147/66 Blood Pressure 177/76 Blood Pressure 159/70 Blood Pressure 150/67 Blood Pressure 160/70 O2 Sat by Pulse Oximetry 97 O2 Sat by Pulse Oximetry 97 O2 Sat by Pulse Oximetry 96 O2 Sat by Pulse Oximetry 99 O2 Sat by Pulse Oximetry 99 O2 Sat by Pulse Oximetry 100 O2 Sat by Pulse Oximetry 99 O2 Sat by Pulse Oximetry 98 Physical Exam Oriented: Person and Place Eyes: Normal Ear: Normal Nose: Normal Throat: Normal Respiratory: Normal Cardiovascular: Normal : Normal GI:Auscultation: Decreased GI:Palpation: Normal GI: Tenderness: Diffuse and Moderate Skin: Normal Musculoskeletal: Normal Psychiatric: Normal Mood Description: Calm Affect: Normal Speech Pattern: Clear and Appropriate Laboratory and Diagnostics 03/24/25 04:25 03/24/25 04:25 Labs: 03/22/25 09:32 Blood Blood Culture - Preliminary 03/22/25 09:23 Blood Blood Culture - Preliminary 03/22/25 15:54 Peritoneal Fluid Wound Gram Stain - Final 03/22/25 15:54 Peritoneal Fluid Wound Culture - Preliminary 03/22/25 13:50 Urine,Catheterized Urine Culture - Final Escherichia Coli Laboratory WBC 10.1 X10^3/uL (3.6-10.0) H 03/24/25 04:25 RBC 3.41 X10^6/uL (3.5-5.4) L 03/24/25 04:25 Hgb 10.1 g/dL (12.0-16.0) L D 03/24/25 04:25 Hct 29.7 % (36.0-47.0) L 03/24/25 04:25 MCV 87.2 fL (80.0-100.0) 03/24/25 04:25 MCH 29.7 pg (27.0-34.0) 03/24/25 04:25 MCHC 34.0 g/dL (33.0-35.0) 03/24/25 04:25 RDW 13.5 % (11.6-16.5) 03/24/25 04:25 Plt Count 152 X10^3/uL (150.0-450.0) 03/24/25 04:25 Plt Count Comment Adequate (ADEQUATE) 03/22/25 08:24 MPV 8.2 fL (7.4-11.0) 03/24/25 04:25 Neut % (Auto) 81.8 % (42.0-75.0) H 03/24/25 04:25 Lymph % (Auto) 9.5 % (21.0-51.0) L 03/24/25 04:25 [place] % (Auto) 7.8 % (0.0-13.0) 03/24/25 04:25 Eos % (Auto) 0.8 % (0.9-2.9) L 03/24/25 04:25 Baso % (Auto) 0.1 % (0.2-1.0) L 03/24/25 04:25 Neut # (Auto) 8.2 x10^3/uL (2.2-4.8) H 03/24/25 04:25 Lymph # (Auto) 1.0 X10^3/uL (1.3-2.9) L 03/24/25 04:25 [place] # (Auto) 0.8 x10^3/uL (0.3-0.8) 03/24/25 04:25 Eos # (Auto) 0.1 x10^3/uL (0.0-0.2) 03/24/25 04:25 Baso # (Auto) 0.0 X10^3/uL (0.0-0.1) 03/24/25 04:25 Absolute Nucleated RBC 0.1 /100WBC 03/24/25 04:25 Total Counted 100 03/22/25 08:24 Neutrophils % (Manual) 82 % (39-76) H 03/22/25 08:24 Band Neutrophils % 4 % (0-10) 03/22/25 08:24 Lymphocytes % (Manual) 11 % (13-43) L 03/22/25 08:24 Monocytes % (Manual) 3 % (4-9) L 03/22/25 08:24 Plt Morphology Comment Normal (NORMAL) 03/22/25 08:24 RBC Morphology Normal (NORMAL) 03/22/25 08:24 Sodium 139 mmol/L (136-145) 03/24/25 04:25 Corrected Sodium 140 mmol/L (136-145) 03/24/25 04:25 Potassium 3.4 mmol/L (3.5-5.1) L 03/24/25 04:25 Chloride 106 mmol/L (98-107) 03/24/25 04:25 Carbon Dioxide 25.9 mmol/L (21-32) 03/24/25 04:25 BUN 14 mg/dL (7-18) 03/24/25 04:25 Creatinine 0.90 mg/dL (0.55-1.02) 03/24/25 04:25 Est GFR (MDRD) Af Amer > 60 (>60) 03/24/25 04:25 Est GFR (MDRD) Non-Af > 60 (>60) 03/24/25 04:25 Glucose 156 mg/dL (65-99) H 03/24/25 04:25 POC Glucose (mg/dL) 144 mg/dL (65-99) H 03/24/25 05:33 Lactic Acid 1.8 mmol/L (0.4-2.0) 03/22/25 20:12 Calcium 7.7 mg/dL (8.5-10.1) L 03/24/25 04:25 Corrected Calcium 9.4 mg/dL (8.5-10.1) 03/24/25 04:25 Magnesium 2.0 mg/dL (2.0-2.9) 03/24/25 04:25 Total Bilirubin 0.50 mg/dL (0.2-1.0) 03/24/25 04:25 AST 28 Units/L (15-37) 03/24/25 04:25 ALT 20 Units/L (12-78) 03/24/25 04:25 Alkaline Phosphatase 64 Units/L (46-116) 03/24/25 04:25 Total Protein 5.6 g/dL (6.4-8.2) L 03/24/25 04:25 Albumin 1.9 g/dL (3.4-5.0) L 03/24/25 04:25 Globulin 3.7 g/dL (2.5-4.5) 03/24/25 04:25 Albumin/Globulin Ratio 0.5 Ratio (1.1-2.1) L 03/24/25 04:25 Amylase 32 Units/L (25-115) 03/22/25 08:24 Lipase 24 Units/L (16-77) 03/22/25 08:24 Specimen Type Catherized urine 03/22/25 13:50 Urine Color Dark yellow (YELLOW) 03/22/25 13:50 Urine Appearance Hazy (CLEAR) 03/22/25 13:50 Urine pH 5.0 (5.0 - 8.0) 03/22/25 13:50 Ur Specific [place] 1.025 (1.000-1.030) 03/22/25 13:50 Urine Protein 3+ (NEGATIVE) 03/22/25 13:50 Urine Glucose (UA) Negative (NEGATIVE) 03/22/25 13:50 Urine Ketones Negative (NEGATIVE) 03/22/25 13:50 Urine Blood 1+ (NEGATIVE) 03/22/25 13:50 Urine Nitrite Positive (NEGATIVE) 03/22/25 13:50 Urine Bilirubin Negative (NEGATIVE) 03/22/25 13:50 Urine Urobilinogen Normal (NORMAL) 03/22/25 13:50 Ur Leukocyte Esterase 3+ (NEGATIVE) 03/22/25 13:50 Urine RBC 3-5 /HPF (0-3) A 03/22/25 13:50 Urine WBC 30-50 /HPF (0-5) A 03/22/25 13:50 Ur Squamous Epith Cells Moderate /HPF (NEGATIVE) 03/22/25 13:50 Urine Bacteria 2+ /HPF (NEGATIVE) 03/22/25 13:50 Ur Culture Indicated? Yes/culture set up 03/22/25 13:50 Assessment and Plan 1: Status post laparotomy, lysis of adhesions, right colectomy to include the cecum terminal ileum and part of the right colon day 2. Same postoperative care, will D/C NG tube and [place] catheter , DVT prophylaxis, IV antibiotics. May have water. 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
[2025-03-24] MEDS: ZOLOFT ONE (11:09)
[2025-03-24] MEDS: NORVASC TAB 5 MG PO SCH (11:16)
[2025-03-24] MEDS: COZAAR PO SCH (21:05)
[2025-03-25 06:21] LABS: MEAN PLATELET VOLUME 8.4 fL (7.4-11.0); RED CELL DISTRIBUTION WIDTH 13.6 % (11.6-16.5)
[2025-03-25 06:24] LABS: COR CA(FOR HYPOALB) 9.7 mg/dL (8.5-10.1); COR NA(FOR HYPERGLY) 138 mmol/L (136-145); CREATININE 0.67 mg/dL (0.55-1.02); eGFR NON BLACK RACES > 60 (>60)
[2025-03-25] MEDS ORDERED: CONSULT PHARMACY - POTASSIUM & MAGNESIUM XX SCH (07:00)
--- NOTE | 2025-03-25 08:36 | DR.PROGNOT ---
HOSPITAL PROGRESS NOTE Progress Note for Day of: Progress Note Date: 03/25/25 Chief Complaint Chief Complaint: Postoperative day 3. Status post expiratory laparotomy, lysis of adhesions and right colectomy to include terminal ileum and cecum with primary anastomosis. Patient is doing fairly well with fair urine output and only mild drainage via TIFFANY White count 10.1, hemoglobin 10.6., BUN/creatinine are normal, electrolytes are normal. Patient is afebrile, clear lung, abdomen is diffusely tender, moderate distention and slightly tympanic, bowel sounds present but hypoactive. No calf tenderness. Past Medical Family Social History Allergies: Allergies No Known Drug Allergies Allergy (Verified 03/22/25 08:35) Review Of Systems ROS: No change since H&P Vital Signs Vital Signs: Vital Signs Temperature 97.9 F Temperature 100.1 F Pulse Rate [Left Radial] 62 Pulse Rate [Left Radial] 98 Respiratory Rate 16 Respiratory Rate 18 Respiratory Rate 21 Blood Pressure [Right Arm] 143/63 Blood Pressure [Right Arm] 134/83 O2 Sat by Pulse Oximetry 97 O2 Sat by Pulse Oximetry 96 Physical Exam Oriented: Person and Place Eyes: Normal Ear: Normal Nose: Normal Throat: Normal Respiratory: Normal Cardiovascular: Normal : Normal GI:Auscultation: Decreased GI:Palpation: Normal GI: Tenderness: Diffuse and Moderate Skin: Normal Musculoskeletal: Normal Psychiatric: Normal Mood Description: Calm Affect: Normal Speech Pattern: Clear and Appropriate Laboratory and Diagnostics 03/25/25 05:05 03/25/25 05:05 Labs: 03/22/25 09:32 Blood Blood Culture - Preliminary 03/22/25 09:23 Blood Blood Culture - Preliminary 03/22/25 15:54 Peritoneal Fluid Wound Gram Stain - Final 03/22/25 15:54 Peritoneal Fluid Wound Culture - Preliminary 03/22/25 13:50 Urine,Catheterized Urine Culture - Final Escherichia Coli Laboratory WBC 10.6 X10^3/uL (3.6-10.0) H 03/25/25 05:05 RBC 3.56 X10^6/uL (3.5-5.4) 03/25/25 05:05 Hgb 10.6 g/dL (12.0-16.0) L 03/25/25 05:05 Hct 31.3 % (36.0-47.0) L 03/25/25 05:05 MCV 88.1 fL (80.0-100.0) 03/25/25 05:05 MCH 29.7 pg (27.0-34.0) 03/25/25 05:05 MCHC 33.7 g/dL (33.0-35.0) 03/25/25 05:05 RDW 13.6 % (11.6-16.5) 03/25/25 05:05 Plt Count 206 X10^3/uL (150.0-450.0) 03/25/25 05:05 Plt Count Comment Adequate (ADEQUATE) 03/22/25 08:24 MPV 8.4 fL (7.4-11.0) 03/25/25 05:05 Neut % (Auto) 79.8 % (42.0-75.0) H 03/25/25 05:05 Lymph % (Auto) 9.2 % (21.0-51.0) L 03/25/25 05:05 [place] % (Auto) 7.9 % (0.0-13.0) 03/25/25 05:05 Eos % (Auto) 2.3 % (0.9-2.9) 03/25/25 05:05 Baso % (Auto) 0.8 % (0.2-1.0) 03/25/25 05:05 Neut # (Auto) 8.5 x10^3/uL (2.2-4.8) H 03/25/25 05:05 Lymph # (Auto) 1.0 X10^3/uL (1.3-2.9) L 03/25/25 05:05 [place] # (Auto) 0.8 x10^3/uL (0.3-0.8) 03/25/25 05:05 Eos # (Auto) 0.2 x10^3/uL (0.0-0.2) 03/25/25 05:05 Baso # (Auto) 0.1 X10^3/uL (0.0-0.1) 03/25/25 05:05 Absolute Nucleated RBC 0.1 /100WBC 03/25/25 05:05 Total Counted 100 03/22/25 08:24 Neutrophils % (Manual) 82 % (39-76) H 03/22/25 08:24 Band Neutrophils % 4 % (0-10) 03/22/25 08:24 Lymphocytes % (Manual) 11 % (13-43) L 03/22/25 08:24 Monocytes % (Manual) 3 % (4-9) L 03/22/25 08:24 Plt Morphology Comment Normal (NORMAL) 03/22/25 08:24 RBC Morphology Normal (NORMAL) 03/22/25 08:24 Sodium 137 mmol/L (136-145) 03/25/25 05:05 Corrected Sodium 138 mmol/L (136-145) 03/25/25 05:05 Potassium 3.8 mmol/L (3.5-5.1) 03/25/25 05:05 Chloride 105 mmol/L (98-107) 03/25/25 05:05 Carbon Dioxide 27.0 mmol/L (21-32) 03/25/25 05:05 BUN 11 mg/dL (7-18) 03/25/25 05:05 Creatinine 0.67 mg/dL (0.55-1.02) 03/25/25 05:05 Est GFR (MDRD) Af Amer > 60 (>60) 03/25/25 05:05 Est GFR (MDRD) Non-Af > 60 (>60) 03/25/25 05:05 Glucose 162 mg/dL (65-99) H 03/25/25 05:05 POC Glucose (mg/dL) 155 mg/dL (65-99) H 03/25/25 05:42 Lactic Acid 1.8 mmol/L (0.4-2.0) 03/22/25 20:12 Calcium 8.0 mg/dL (8.5-10.1) L 03/25/25 05:05 Corrected Calcium 9.7 mg/dL (8.5-10.1) 03/25/25 05:05 Magnesium 2.0 mg/dL (2.0-2.9) 03/25/25 05:05 Total Bilirubin 0.40 mg/dL (0.2-1.0) 03/25/25 05:05 AST 21 Units/L (15-37) 03/25/25 05:05 ALT 21 Units/L (12-78) 03/25/25 05:05 Alkaline Phosphatase 85 Units/L (46-116) 03/25/25 05:05 Total Protein 5.8 g/dL (6.4-8.2) L 03/25/25 05:05 Albumin 1.9 g/dL (3.4-5.0) L 03/25/25 05:05 Globulin 3.9 g/dL (2.5-4.5) 03/25/25 05:05 Albumin/Globulin Ratio 0.5 Ratio (1.1-2.1) L 03/25/25 05:05 Amylase 32 Units/L (25-115) 03/22/25 08:24 Lipase 24 Units/L (16-77) 03/22/25 08:24 Specimen Type Catherized urine 03/22/25 13:50 Urine Color Dark yellow (YELLOW) 03/22/25 13:50 Urine Appearance Hazy (CLEAR) 03/22/25 13:50 Urine pH 5.0 (5.0 - 8.0) 03/22/25 13:50 Ur Specific [place] 1.025 (1.000-1.030) 03/22/25 13:50 Urine Protein 3+ (NEGATIVE) 03/22/25 13:50 Urine Glucose (UA) Negative (NEGATIVE) 03/22/25 13:50 Urine Ketones Negative (NEGATIVE) 03/22/25 13:50 Urine Blood 1+ (NEGATIVE) 03/22/25 13:50 Urine Nitrite Positive (NEGATIVE) 03/22/25 13:50 Urine Bilirubin Negative (NEGATIVE) 03/22/25 13:50 Urine Urobilinogen Normal (NORMAL) 03/22/25 13:50 Ur Leukocyte Esterase 3+ (NEGATIVE) 03/22/25 13:50 Urine RBC 3-5 /HPF (0-3) A 03/22/25 13:50 Urine WBC 30-50 /HPF (0-5) A 03/22/25 13:50 Ur Squamous Epith Cells Moderate /HPF (NEGATIVE) 03/22/25 13:50 Urine Bacteria 2+ /HPF (NEGATIVE) 03/22/25 13:50 Ur Culture Indicated? Yes/culture set up 03/22/25 13:50 Assessment and Plan 1: Status post laparotomy, lysis of adhesions, right colectomy to include the cecum terminal ileum and part of the right colon day 3. Same postoperative care, , DVT prophylaxis, IV antibiotics. May have water. Out of bed with abdominal binder, incentive spirometer. 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
[2025-03-25] MEDS ORDERED: COZAAR PO SCH (09:00)
[2025-03-25 09:08] VITALS: BMI 32.8
[2025-03-25] MEDS: K-DUR TAB 20 MEQ PO SCH (09:17)
[2025-03-25] MEDS: TYGACIL 50 MG VIAL 100 MG in NS 100 ML IV 100 ML IV ONE (12:22)
[2025-03-25] MEDS: TYGACIL 50 MG VIAL 50 MG in NS 100 ML IV 100 ML IV SCH (20:46)
[2025-03-26 05:00] LABS: MEAN PLATELET VOLUME 7.9 fL (7.4-11.0); RED CELL DISTRIBUTION WIDTH 13.6 % (11.6-16.5)
[2025-03-26 05:13] LABS: COR CA(FOR HYPOALB) 9.7 mg/dL (8.5-10.1); COR NA(FOR HYPERGLY) 137 mmol/L (136-145); CREATININE 0.83 mg/dL (0.55-1.02); eGFR NON BLACK RACES > 60 (>60)
--- NOTE | 2025-03-26 09:46 | PCM.PROG ---
Progress Note Progress Note for Day of Date of Exam: 03/26/25 Subjective Subjective: POD#4 s/p ex-laparotomy, lysis of adhesions and right colectomy to include terminal ileum and cecum with primary anastomosis. Patient seen at bedside, no acute events overnight. Her BP was elevated yesterday, meds adjusted. She also had a low-grade fever yesterday, Tigacil was added. She has been afebrile overnight. She has been drinking water. She had 2 small BMs yesterday. She has right sided abdominal pain. Denies N/V. Labs/imaging reviewed: -WBC 11 Hgb 10.7 K 3.9 Cr 0.83 -Urine Cx; E.coli Plan: Follow surgery recommendations. Continue current diet. Continue pain control. Add colace. Encouraged ambulation, PT/OT as tolerated. Replace electrolytes as per protocol. Continue IV antibiotics. Order CXR. Monitor TIFFANY output. Monitor BP. Monitor AM labs/imaging reviewed. Time spent for clinical assessment, reviewing labs/imaging, physical exam, decision making and documentation greater than 45 mins. Past Medical Family Social History Allergies: Allergies No Known Drug Allergies Allergy (Verified 03/22/25 08:35) Review of Systems ROS: No change since H&P Vital Signs and I&O's Vital Signs: Vital Signs Temperature 97.7 F Pulse Rate [Left Radial] 62 Respiratory Rate 20 Respiratory Rate 20 Blood Pressure [Right Arm] 160/72 O2 Sat by Pulse Oximetry 94 O2 Sat by Pulse Oximetry 94 Intake and Output: Intake & Output 03/23/25 03/24/25 03/25/25 03/26/25 23:59 23:59 23:59 23:59 Intake Total 2208 / 2208 3080 / 3080 3158 / 3158 867 / 867 Output Total 1095 / 1095 1503 / 1503 39 / 39 370 / 370 Balance 1113 / 1113 1577 / 1577 3119 / 3119 497 / 497 Physical Exam Oriented: Person and Place Eyes: Normal Ear: Normal Nose: Normal Throat: Normal Respiratory: Normal Cardiovascular: Normal Auscultation: Bowel Sounds: Decreased Tenderness: Diffuse and Moderate Skin: Normal Musculoskeletal: Normal Psychiatric: Normal Mood Description: Calm Affect: Normal Speech Pattern: Clear Laboratory and Diagnostics 03/26/25 04:22 03/26/25 04:22 Labs: 03/22/25 15:54 Peritoneal Fluid Wound Gram Stain - Final 03/22/25 15:54 Peritoneal Fluid Wound Culture - Final Escherichia Coli 03/22/25 09:32 Blood Blood Culture - Preliminary 03/22/25 09:23 Blood Blood Culture - Preliminary 03/22/25 13:50 Urine,Catheterized Urine Culture - Final Escherichia Coli Laboratory WBC 11.0 X10^3/uL (3.6-10.0) H 03/26/25 04:22 RBC 3.69 X10^6/uL (3.5-5.4) 03/26/25 04:22 Hgb 10.7 g/dL (12.0-16.0) L 03/26/25 04:22 Hct 32.6 % (36.0-47.0) L 03/26/25 04:22 MCV 88.2 fL (80.0-100.0) 03/26/25 04:22 MCH 28.9 pg (27.0-34.0) 03/26/25 04:22 MCHC 32.8 g/dL (33.0-35.0) L 03/26/25 04:22 RDW 13.6 % (11.6-16.5) 03/26/25 04:22 Plt Count 245 X10^3/uL (150.0-450.0) 03/26/25 04:22 Plt Count Comment Adequate (ADEQUATE) 03/22/25 08:24 MPV 7.9 fL (7.4-11.0) 03/26/25 04:22 Neut % (Auto) 73.0 % (42.0-75.0) 03/26/25 04:22 Lymph % (Auto) 14.8 % (21.0-51.0) L 03/26/25 04:22 [place] % (Auto) 9.2 % (0.0-13.0) 03/26/25 04:22 Eos % (Auto) 2.6 % (0.9-2.9) 03/26/25 04:22 Baso % (Auto) 0.4 % (0.2-1.0) 03/26/25 04:22 Neut # (Auto) 8.0 x10^3/uL (2.2-4.8) H 03/26/25 04:22 Lymph # (Auto) 1.6 X10^3/uL (1.3-2.9) 03/26/25 04:22 [place] # (Auto) 1.0 x10^3/uL (0.3-0.8) H 03/26/25 04:22 Eos # (Auto) 0.3 x10^3/uL (0.0-0.2) H 03/26/25 04:22 Baso # (Auto) 0.0 X10^3/uL (0.0-0.1) 03/26/25 04:22 Absolute Nucleated RBC 0.0 /100WBC 03/26/25 04:22 Total Counted 100 03/22/25 08:24 Neutrophils % (Manual) 82 % (39-76) H 03/22/25 08:24 Band Neutrophils % 4 % (0-10) 03/22/25 08:24 Lymphocytes % (Manual) 11 % (13-43) L 03/22/25 08:24 Monocytes % (Manual) 3 % (4-9) L 03/22/25 08:24 Plt Morphology Comment Normal (NORMAL) 03/22/25 08:24 RBC Morphology Normal (NORMAL) 03/22/25 08:24 Sodium 136 mmol/L (136-145) 03/26/25 04:22 Corrected Sodium 137 mmol/L (136-145) 03/26/25 04:22 Potassium 3.9 mmol/L (3.5-5.1) 03/26/25 04:22 Chloride 104 mmol/L (98-107) 03/26/25 04:22 Carbon Dioxide 24.3 mmol/L (21-32) 03/26/25 04:22 BUN 19 mg/dL (7-18) H 03/26/25 04:22 Creatinine 0.83 mg/dL (0.55-1.02) 03/26/25 04:22 Est GFR (MDRD) Af Amer > 60 (>60) 03/26/25 04:22 Est GFR (MDRD) Non-Af > 60 (>60) 03/26/25 04:22 Glucose 149 mg/dL (65-99) H 03/26/25 04:22 POC Glucose (mg/dL) 145 mg/dL (65-99) H 03/26/25 05:39 Lactic Acid 1.8 mmol/L (0.4-2.0) 03/22/25 20:12 Calcium 7.9 mg/dL (8.5-10.1) L 03/26/25 04:22 Corrected Calcium 9.7 mg/dL (8.5-10.1) 03/26/25 04:22 Magnesium 2.0 mg/dL (2.0-2.9) 03/25/25 05:05 Total Bilirubin 0.50 mg/dL (0.2-1.0) 03/26/25 04:22 AST 18 Units/L (15-37) 03/26/25 04:22 ALT 18 Units/L (12-78) 03/26/25 04:22 Alkaline Phosphatase 86 Units/L (46-116) 03/26/25 04:22 Total Protein 5.5 g/dL (6.4-8.2) L 03/26/25 04:22 Albumin 1.8 g/dL (3.4-5.0) L 03/26/25 04:22 Globulin 3.7 g/dL (2.5-4.5) 03/26/25 04:22 Albumin/Globulin Ratio 0.5 Ratio (1.1-2.1) L 03/26/25 04:22 Amylase 32 Units/L (25-115) 03/22/25 08:24 Lipase 24 Units/L (16-77) 03/22/25 08:24 Specimen Type Catherized urine 03/22/25 13:50 Urine Color Dark yellow (YELLOW) 03/22/25 13:50 Urine Appearance Hazy (CLEAR) 03/22/25 13:50 Urine pH 5.0 (5.0 - 8.0) 03/22/25 13:50 Ur Specific [place] 1.025 (1.000-1.030) 03/22/25 13:50 Urine Protein 3+ (NEGATIVE) 03/22/25 13:50 Urine Glucose (UA) Negative (NEGATIVE) 03/22/25 13:50 Urine Ketones Negative (NEGATIVE) 03/22/25 13:50 Urine Blood 1+ (NEGATIVE) 03/22/25 13:50 Urine Nitrite Positive (NEGATIVE) 03/22/25 13:50 Urine Bilirubin Negative (NEGATIVE) 03/22/25 13:50 Urine Urobilinogen Normal (NORMAL) 03/22/25 13:50 Ur Leukocyte Esterase 3+ (NEGATIVE) 03/22/25 13:50 Urine RBC 3-5 /HPF (0-3) A 03/22/25 13:50 Urine WBC 30-50 /HPF (0-5) A 03/22/25 13:50 Ur Squamous Epith Cells Moderate /HPF (NEGATIVE) 03/22/25 13:50 Urine Bacteria 2+ /HPF (NEGATIVE) 03/22/25 13:50 Ur Culture Indicated? Yes/culture set up 03/22/25 13:50 Plan (1) Cecal volvulus: Status: Acute (2) Acute UTI: Status: Acute (3) HTN (hypertension): Status: Chronic Qualifiers: Hypertension type: essential hypertension Qualified Code(s): I10 - Essential (primary) hypertension (4) Hyperlipidemia: Status: Chronic Qualifiers: Hyperlipidemia type: mixed hyperlipidemia Qualified Code(s): E78.2 - Mixed hyperlipidemia (5) MDD (major depressive disorder): Status: Chronic Qualifiers: Active/Remission status: remission status unspecified Major depression recurrence: unspecified whether recurrent Qualified Code(s): F32.9 - Major depressive disorder, single episode, unspecified (6) GERD (gastroesophageal reflux disease): Status: Chronic Qualifiers: Esophagitis presence: esophagitis presence not specified Qualified Code(s): K21.9 - Gastro-esophageal reflux disease without esophagitis
--- NOTE | 2025-03-26 10:58 | RAD ---
EXAM: CHEST, 1 VIEW HISTORY: fever, post-op; COMPARISON: 03/22/2025 TECHNIQUE: AP FINDINGS: Stable left subclavian catheter. Unchanged cardiac silhouette. No focal consolidation, large pleural effusion, or visible pneumothorax. IMPRESSION: No acute cardiopulmonary findings. THIS IS AN ELECTRONICALLY VERIFIED FINAL REPORT 03/26/2025 10:53 AM - Electronically signed by Nader Sadler MD
[2025-03-26] MEDS: COLACE CAP 100 MG PO SCH (11:00)
[2025-03-26] MEDS: D5 1/2 NS 1,000 ML 1,000 ML IV SCH (13:04)
--- NOTE | 2025-03-26 13:13 | DR.PROGNOT ---
HOSPITAL PROGRESS NOTE Progress Note for Day of: Progress Note Date: 03/26/25 Chief Complaint Chief Complaint: Postoperative day 4. Still with moderate distention but had small bowel movement last night. Patient is alert and well oriented Draining large amount of serous fluid through the [place] drain. White count is 11,000 with shift to the left, BUN 19 but creatinine 0.8, all liver function tests are normal, chest x-ray was reported as normal. Temperature 98.2. Lung is clear, abdomen is soft with moderate distention, bowel sounds are present. No leg edema or calf tenderness. Past Medical Family Social History Allergies: Allergies No Known Drug Allergies Allergy (Verified 03/22/25 08:35) Review Of Systems ROS: No change since H&P Changes in ROS: see HPI Vital Signs Vital Signs: Vital Signs O2 Sat by Pulse Oximetry 94 Physical Exam Oriented: Person and Place Eyes: Normal Ear: Normal Nose: Normal Throat: Normal Respiratory: Normal Cardiovascular: Normal : Normal GI:Auscultation: Decreased GI:Palpation: Normal GI: Tenderness: Diffuse and Moderate Skin: Normal Musculoskeletal: Normal Psychiatric: Normal Mood Description: Calm Affect: Normal Speech Pattern: Clear Laboratory and Diagnostics 03/26/25 04:22 03/26/25 04:22 Labs: 03/22/25 15:54 Peritoneal Fluid Wound Gram Stain - Final 03/22/25 15:54 Peritoneal Fluid Wound Culture - Final Escherichia Coli 03/22/25 09:32 Blood Blood Culture - Preliminary 03/22/25 09:23 Blood Blood Culture - Preliminary 03/22/25 13:50 Urine,Catheterized Urine Culture - Final Escherichia Coli Laboratory WBC 11.0 X10^3/uL (3.6-10.0) H 03/26/25 04:22 RBC 3.69 X10^6/uL (3.5-5.4) 03/26/25 04:22 Hgb 10.7 g/dL (12.0-16.0) L 03/26/25 04:22 Hct 32.6 % (36.0-47.0) L 03/26/25 04:22 MCV 88.2 fL (80.0-100.0) 03/26/25 04:22 MCH 28.9 pg (27.0-34.0) 03/26/25 04:22 MCHC 32.8 g/dL (33.0-35.0) L 03/26/25 04:22 RDW 13.6 % (11.6-16.5) 03/26/25 04:22 Plt Count 245 X10^3/uL (150.0-450.0) 03/26/25 04:22 Plt Count Comment Adequate (ADEQUATE) 03/22/25 08:24 MPV 7.9 fL (7.4-11.0) 03/26/25 04:22 Neut % (Auto) 73.0 % (42.0-75.0) 03/26/25 04:22 Lymph % (Auto) 14.8 % (21.0-51.0) L 03/26/25 04:22 [place] % (Auto) 9.2 % (0.0-13.0) 03/26/25 04:22 Eos % (Auto) 2.6 % (0.9-2.9) 03/26/25 04:22 Baso % (Auto) 0.4 % (0.2-1.0) 03/26/25 04:22 Neut # (Auto) 8.0 x10^3/uL (2.2-4.8) H 03/26/25 04:22 Lymph # (Auto) 1.6 X10^3/uL (1.3-2.9) 03/26/25 04:22 [place] # (Auto) 1.0 x10^3/uL (0.3-0.8) H 03/26/25 04:22 Eos # (Auto) 0.3 x10^3/uL (0.0-0.2) H 03/26/25 04:22 Baso # (Auto) 0.0 X10^3/uL (0.0-0.1) 03/26/25 04:22 Absolute Nucleated RBC 0.0 /100WBC 03/26/25 04:22 Total Counted 100 03/22/25 08:24 Neutrophils % (Manual) 82 % (39-76) H 03/22/25 08:24 Band Neutrophils % 4 % (0-10) 03/22/25 08:24 Lymphocytes % (Manual) 11 % (13-43) L 03/22/25 08:24 Monocytes % (Manual) 3 % (4-9) L 03/22/25 08:24 Plt Morphology Comment Normal (NORMAL) 03/22/25 08:24 RBC Morphology Normal (NORMAL) 03/22/25 08:24 Sodium 136 mmol/L (136-145) 03/26/25 04:22 Corrected Sodium 137 mmol/L (136-145) 03/26/25 04:22 Potassium 3.9 mmol/L (3.5-5.1) 03/26/25 04:22 Chloride 104 mmol/L (98-107) 03/26/25 04:22 Carbon Dioxide 24.3 mmol/L (21-32) 03/26/25 04:22 BUN 19 mg/dL (7-18) H 03/26/25 04:22 Creatinine 0.83 mg/dL (0.55-1.02) 03/26/25 04:22 Est GFR (MDRD) Af Amer > 60 (>60) 03/26/25 04:22 Est GFR (MDRD) Non-Af > 60 (>60) 03/26/25 04:22 Glucose 149 mg/dL (65-99) H 03/26/25 04:22 POC Glucose (mg/dL) 135 mg/dL (65-99) H 03/26/25 11:08 Lactic Acid 1.8 mmol/L (0.4-2.0) 03/22/25 20:12 Calcium 7.9 mg/dL (8.5-10.1) L 03/26/25 04:22 Corrected Calcium 9.7 mg/dL (8.5-10.1) 03/26/25 04:22 Magnesium 2.0 mg/dL (2.0-2.9) 03/25/25 05:05 Total Bilirubin 0.50 mg/dL (0.2-1.0) 03/26/25 04:22 AST 18 Units/L (15-37) 03/26/25 04:22 ALT 18 Units/L (12-78) 03/26/25 04:22 Alkaline Phosphatase 86 Units/L (46-116) 03/26/25 04:22 Total Protein 5.5 g/dL (6.4-8.2) L 03/26/25 04:22 Albumin 1.8 g/dL (3.4-5.0) L 03/26/25 04:22 Globulin 3.7 g/dL (2.5-4.5) 03/26/25 04:22 Albumin/Globulin Ratio 0.5 Ratio (1.1-2.1) L 03/26/25 04:22 Amylase 32 Units/L (25-115) 03/22/25 08:24 Lipase 24 Units/L (16-77) 03/22/25 08:24 Specimen Type Catherized urine 03/22/25 13:50 Urine Color Dark yellow (YELLOW) 03/22/25 13:50 Urine Appearance Hazy (CLEAR) 03/22/25 13:50 Urine pH 5.0 (5.0 - 8.0) 03/22/25 13:50 Ur Specific [place] 1.025 (1.000-1.030) 03/22/25 13:50 Urine Protein 3+ (NEGATIVE) 03/22/25 13:50 Urine Glucose (UA) Negative (NEGATIVE) 03/22/25 13:50 Urine Ketones Negative (NEGATIVE) 03/22/25 13:50 Urine Blood 1+ (NEGATIVE) 03/22/25 13:50 Urine Nitrite Positive (NEGATIVE) 03/22/25 13:50 Urine Bilirubin Negative (NEGATIVE) 03/22/25 13:50 Urine Urobilinogen Normal (NORMAL) 03/22/25 13:50 Ur Leukocyte Esterase 3+ (NEGATIVE) 03/22/25 13:50 Urine RBC 3-5 /HPF (0-3) A 03/22/25 13:50 Urine WBC 30-50 /HPF (0-5) A 03/22/25 13:50 Ur Squamous Epith Cells Moderate /HPF (NEGATIVE) 03/22/25 13:50 Urine Bacteria 2+ /HPF (NEGATIVE) 03/22/25 13:50 Ur Culture Indicated? Yes/culture set up 03/22/25 13:50 Assessment and Plan 1: Status post laparotomy, lysis of adhesions, right colectomy to include the cecum terminal ileum and part of the right colon day 4 Same postoperative care, , DVT prophylaxis, IV antibiotics. May have water. Out of bed with abdominal binder, incentive spirometer. 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
[2025-03-26] MEDS: ZOLOFT ONE ×2 (16:31→19:13)
[2025-03-26 20:07] VITALS: RESP 18
[2025-03-27 04:47] LABS: MEAN PLATELET VOLUME 7.7 fL (7.4-11.0); RED CELL DISTRIBUTION WIDTH 13.2 % (11.6-16.5)
[2025-03-27 05:02] LABS: COR CA(FOR HYPOALB) 9.6 mg/dL (8.5-10.1); COR NA(FOR HYPERGLY) 141 mmol/L (136-145); CREATININE 0.71 mg/dL (0.55-1.02); eGFR NON BLACK RACES > 60 (>60)
[2025-03-27] MEDS ORDERED: CONSULT PHARMACY - POTASSIUM & MAGNESIUM XX SCH (06:00)
[2025-03-27] MEDS: MAG-OX TAB PO SCH (08:28)
[2025-03-27] MEDS: K-DUR TAB 20 MEQ PO SCH (08:28)
--- NOTE | 2025-03-27 08:36 | DR.PROGNOT ---
HOSPITAL PROGRESS NOTE Progress Note for Day of: Progress Note Date: 03/27/25 Chief Complaint Chief Complaint: Postoperative day 5. Still with moderate distention but had small bowel movement last night. Patient somewhat depressed. White count is 9, electrolytes BUN/creatinine and liver function tests are normal. Albumin is 1.9. Patient is afebrile, abdomen is soft with moderate distention and hypoactive bowel sounds. To obtain KUB, advance diet and ambulate. Past Medical Family Social History Allergies: Allergies No Known Drug Allergies Allergy (Verified 03/22/25 08:35) Review Of Systems ROS: No change since H&P Changes in ROS: see HPI Vital Signs Vital Signs: Vital Signs Temperature 97.8 F Pulse Rate [Left Radial] 70 Respiratory Rate 18 Blood Pressure [Right Arm] 160/80 Blood Pressure [Right Arm] 210/75 Blood Pressure [Right Arm] 220/78 O2 Sat by Pulse Oximetry 96 Physical Exam Oriented: Person and Place Eyes: Normal Ear: Normal Nose: Normal Throat: Normal Respiratory: Normal Cardiovascular: Normal : Normal GI:Auscultation: Decreased GI:Palpation: Normal GI: Tenderness: Diffuse and Moderate Skin: Normal Musculoskeletal: Normal Psychiatric: Normal Mood Description: Calm Affect: Normal Speech Pattern: Clear Laboratory and Diagnostics 03/27/25 04:36 03/27/25 04:36 Labs: 03/22/25 15:54 Peritoneal Fluid Wound Gram Stain - Final 03/22/25 15:54 Peritoneal Fluid Wound Culture - Final Escherichia Coli 03/22/25 09:32 Blood Blood Culture - Preliminary 03/22/25 09:23 Blood Blood Culture - Preliminary 03/22/25 13:50 Urine,Catheterized Urine Culture - Final Escherichia Coli Laboratory WBC 9.0 X10^3/uL (3.6-10.0) 03/27/25 04:36 RBC 3.46 X10^6/uL (3.5-5.4) L 03/27/25 04:36 Hgb 10.4 g/dL (12.0-16.0) L 03/27/25 04:36 Hct 29.9 % (36.0-47.0) L 03/27/25 04:36 MCV 86.5 fL (80.0-100.0) 03/27/25 04:36 MCH 29.9 pg (27.0-34.0) 03/27/25 04:36 MCHC 34.6 g/dL (33.0-35.0) 03/27/25 04:36 RDW 13.2 % (11.6-16.5) 03/27/25 04:36 Plt Count 230 X10^3/uL (150.0-450.0) 03/27/25 04:36 Plt Count Comment Adequate (ADEQUATE) 03/22/25 08:24 MPV 7.7 fL (7.4-11.0) 03/27/25 04:36 Neut % (Auto) 71.8 % (42.0-75.0) 03/27/25 04:36 Lymph % (Auto) 14.5 % (21.0-51.0) L 03/27/25 04:36 [place] % (Auto) 10.1 % (0.0-13.0) 03/27/25 04:36 Eos % (Auto) 3.0 % (0.9-2.9) H 03/27/25 04:36 Baso % (Auto) 0.6 % (0.2-1.0) 03/27/25 04:36 Neut # (Auto) 6.5 x10^3/uL (2.2-4.8) H 03/27/25 04:36 Lymph # (Auto) 1.3 X10^3/uL (1.3-2.9) 03/27/25 04:36 [place] # (Auto) 0.9 x10^3/uL (0.3-0.8) H 03/27/25 04:36 Eos # (Auto) 0.3 x10^3/uL (0.0-0.2) H 03/27/25 04:36 Baso # (Auto) 0.1 X10^3/uL (0.0-0.1) 03/27/25 04:36 Absolute Nucleated RBC 0.0 /100WBC 03/27/25 04:36 Total Counted 100 03/22/25 08:24 Neutrophils % (Manual) 82 % (39-76) H 03/22/25 08:24 Band Neutrophils % 4 % (0-10) 03/22/25 08:24 Lymphocytes % (Manual) 11 % (13-43) L 03/22/25 08:24 Monocytes % (Manual) 3 % (4-9) L 03/22/25 08:24 Plt Morphology Comment Normal (NORMAL) 03/22/25 08:24 RBC Morphology Normal (NORMAL) 03/22/25 08:24 Sodium 140 mmol/L (136-145) 03/27/25 04:36 Corrected Sodium 141 mmol/L (136-145) 03/27/25 04:36 Potassium 3.5 mmol/L (3.5-5.1) 03/27/25 04:36 Chloride 107 mmol/L (98-107) 03/27/25 04:36 Carbon Dioxide 25.7 mmol/L (21-32) 03/27/25 04:36 BUN 16 mg/dL (7-18) 03/27/25 04:36 Creatinine 0.71 mg/dL (0.55-1.02) 03/27/25 04:36 Est GFR (MDRD) Af Amer > 60 (>60) 03/27/25 04:36 Est GFR (MDRD) Non-Af > 60 (>60) 03/27/25 04:36 Glucose 141 mg/dL (65-99) H 03/27/25 04:36 POC Glucose (mg/dL) 153 mg/dL (65-99) H 03/27/25 05:08 Lactic Acid 1.8 mmol/L (0.4-2.0) 03/22/25 20:12 Calcium 7.9 mg/dL (8.5-10.1) L 03/27/25 04:36 Corrected Calcium 9.6 mg/dL (8.5-10.1) 03/27/25 04:36 Magnesium 1.7 mg/dL (2.0-2.9) L 03/27/25 04:36 Total Bilirubin 0.60 mg/dL (0.2-1.0) 03/27/25 04:36 AST 19 Units/L (15-37) 03/27/25 04:36 ALT 18 Units/L (12-78) 03/27/25 04:36 Alkaline Phosphatase 81 Units/L (46-116) 03/27/25 04:36 Total Protein 5.3 g/dL (6.4-8.2) L 03/27/25 04:36 Albumin 1.9 g/dL (3.4-5.0) L 03/27/25 04:36 Globulin 3.4 g/dL (2.5-4.5) 03/27/25 04:36 Albumin/Globulin Ratio 0.6 Ratio (1.1-2.1) L 03/27/25 04:36 Amylase 32 Units/L (25-115) 03/22/25 08:24 Lipase 24 Units/L (16-77) 03/22/25 08:24 Specimen Type Catherized urine 03/22/25 13:50 Urine Color Dark yellow (YELLOW) 03/22/25 13:50 Urine Appearance Hazy (CLEAR) 03/22/25 13:50 Urine pH 5.0 (5.0 - 8.0) 03/22/25 13:50 Ur Specific [place] 1.025 (1.000-1.030) 03/22/25 13:50 Urine Protein 3+ (NEGATIVE) 03/22/25 13:50 Urine Glucose (UA) Negative (NEGATIVE) 03/22/25 13:50 Urine Ketones Negative (NEGATIVE) 03/22/25 13:50 Urine Blood 1+ (NEGATIVE) 03/22/25 13:50 Urine Nitrite Positive (NEGATIVE) 03/22/25 13:50 Urine Bilirubin Negative (NEGATIVE) 03/22/25 13:50 Urine Urobilinogen Normal (NORMAL) 03/22/25 13:50 Ur Leukocyte Esterase 3+ (NEGATIVE) 03/22/25 13:50 Urine RBC 3-5 /HPF (0-3) A 03/22/25 13:50 Urine WBC 30-50 /HPF (0-5) A 03/22/25 13:50 Ur Squamous Epith Cells Moderate /HPF (NEGATIVE) 03/22/25 13:50 Urine Bacteria 2+ /HPF (NEGATIVE) 03/22/25 13:50 Ur Culture Indicated? Yes/culture set up 03/22/25 13:50 Assessment and Plan 1: Status post laparotomy, lysis of adhesions, right colectomy to include the cecum terminal ileum and part of the right colon day 4 Same postoperative care, , DVT prophylaxis, IV antibiotics. To advance diet, out of bed ambulatory with video production assistant and physical therapy. 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
--- NOTE | 2025-03-27 10:16 | PCM.PROG ---
Progress Note Progress Note for Day of Date of Exam: 03/27/25 Subjective Subjective: POD#5 s/p ex-laparotomy, lysis of adhesions and right colectomy to include terminal ileum and cecum with primary anastomosis. Patient seen at bedside, no acute events overnight. She is feeling better. She was able to tolerate her diet. She had a BM this morning. She states abdominal pain is better, still has TIFFANY drain. Denies N/V. She has been afebrile. Labs/imaging reviewed: -WBC 9.0 Hgb 10.4 K 3.5 Cr 0.71 mag 1.7 -Urine Cx; E.coli Plan: Follow surgery recommendations. Diet advanced to soft as per surgery. Follow KUB results. Continue antibiotics. Increase norvasc to 10 mg daily. Continue pain control. Colace. Encouraged ambulation, PT/OT as tolerated. Replace electrolytes as per protocol. Continue IV antibiotics. Monitor TIFFANY output. Monitor BP. Monitor AM labs/imaging reviewed. Time spent for clinical assessment, reviewing labs/imaging, physical exam, decision making and documentation greater than 45 mins. Past Medical Family Social History Allergies: Allergies No Known Drug Allergies Allergy (Verified 03/22/25 08:35) Review of Systems ROS: No change since H&P Vital Signs and I&O's Vital Signs: Vital Signs Temperature 97.4 F Temperature 97.8 F Pulse Rate [Left Radial] 65 Pulse Rate [Left Radial] 70 Respiratory Rate 18 Respiratory Rate 18 Blood Pressure [Right Arm] 142/82 Blood Pressure [Right Arm] 180/82 Blood Pressure [Right Arm] 160/80 Blood Pressure [Right Arm] 210/75 Blood Pressure [Right Arm] 220/78 O2 Sat by Pulse Oximetry 94 O2 Sat by Pulse Oximetry 96 Intake and Output: Intake & Output 03/24/25 03/25/25 03/26/25 03/27/25 23:59 23:59 23:59 23:59 Intake Total 3080 / 3080 3158 / 3158 3293 / 3293 600 / 600 Output Total 1503 / 1503 39 / 39 1025 / 1025 130 / 130 Balance 1577 / 1577 3119 / 3119 2268 / 2268 470 / 470 Physical Exam Oriented: Person and Place Eyes: Normal Ear: Normal Nose: Normal Throat: Normal Respiratory: Normal Cardiovascular: Normal Auscultation: Bowel Sounds: Decreased Tenderness: Diffuse and Moderate Skin: Normal Musculoskeletal: Normal Psychiatric: Normal Mood Description: Calm Affect: Normal Speech Pattern: Clear Laboratory and Diagnostics 03/27/25 04:36 03/27/25 04:36 Labs: 03/22/25 15:54 Peritoneal Fluid Wound Gram Stain - Final 03/22/25 15:54 Peritoneal Fluid Wound Culture - Final Escherichia Coli 03/22/25 09:32 Blood Blood Culture - Preliminary 03/22/25 09:23 Blood Blood Culture - Preliminary 03/22/25 13:50 Urine,Catheterized Urine Culture - Final Escherichia Coli Laboratory WBC 9.0 X10^3/uL (3.6-10.0) 03/27/25 04:36 RBC 3.46 X10^6/uL (3.5-5.4) L 03/27/25 04:36 Hgb 10.4 g/dL (12.0-16.0) L 03/27/25 04:36 Hct 29.9 % (36.0-47.0) L 03/27/25 04:36 MCV 86.5 fL (80.0-100.0) 03/27/25 04:36 MCH 29.9 pg (27.0-34.0) 03/27/25 04:36 MCHC 34.6 g/dL (33.0-35.0) 03/27/25 04:36 RDW 13.2 % (11.6-16.5) 03/27/25 04:36 Plt Count 230 X10^3/uL (150.0-450.0) 03/27/25 04:36 Plt Count Comment Adequate (ADEQUATE) 03/22/25 08:24 MPV 7.7 fL (7.4-11.0) 03/27/25 04:36 Neut % (Auto) 71.8 % (42.0-75.0) 03/27/25 04:36 Lymph % (Auto) 14.5 % (21.0-51.0) L 03/27/25 04:36 Treasure % (Auto) 10.1 % (0.0-13.0) 03/27/25 04:36 Eos % (Auto) 3.0 % (0.9-2.9) H 03/27/25 04:36 Baso % (Auto) 0.6 % (0.2-1.0) 03/27/25 04:36 Neut # (Auto) 6.5 x10^3/uL (2.2-4.8) H 03/27/25 04:36 Lymph # (Auto) 1.3 X10^3/uL (1.3-2.9) 03/27/25 04:36 Treasure # (Auto) 0.9 x10^3/uL (0.3-0.8) H 03/27/25 04:36 Eos # (Auto) 0.3 x10^3/uL (0.0-0.2) H 03/27/25 04:36 Baso # (Auto) 0.1 X10^3/uL (0.0-0.1) 03/27/25 04:36 Absolute Nucleated RBC 0.0 /100WBC 03/27/25 04:36 Total Counted 100 03/22/25 08:24 Neutrophils % (Manual) 82 % (39-76) H 03/22/25 08:24 Band Neutrophils % 4 % (0-10) 03/22/25 08:24 Lymphocytes % (Manual) 11 % (13-43) L 03/22/25 08:24 Monocytes % (Manual) 3 % (4-9) L 03/22/25 08:24 Plt Morphology Comment Normal (NORMAL) 03/22/25 08:24 RBC Morphology Normal (NORMAL) 03/22/25 08:24 Sodium 140 mmol/L (136-145) 03/27/25 04:36 Corrected Sodium 141 mmol/L (136-145) 03/27/25 04:36 Potassium 3.5 mmol/L (3.5-5.1) 03/27/25 04:36 Chloride 107 mmol/L (98-107) 03/27/25 04:36 Carbon Dioxide 25.7 mmol/L (21-32) 03/27/25 04:36 BUN 16 mg/dL (7-18) 03/27/25 04:36 Creatinine 0.71 mg/dL (0.55-1.02) 03/27/25 04:36 Est GFR (MDRD) Af Amer > 60 (>60) 03/27/25 04:36 Est GFR (MDRD) Non-Af > 60 (>60) 03/27/25 04:36 Glucose 141 mg/dL (65-99) H 03/27/25 04:36 POC Glucose (mg/dL) 153 mg/dL (65-99) H 03/27/25 05:08 Lactic Acid 1.8 mmol/L (0.4-2.0) 03/22/25 20:12 Calcium 7.9 mg/dL (8.5-10.1) L 03/27/25 04:36 Corrected Calcium 9.6 mg/dL (8.5-10.1) 03/27/25 04:36 Magnesium 1.7 mg/dL (2.0-2.9) L 03/27/25 04:36 Total Bilirubin 0.60 mg/dL (0.2-1.0) 03/27/25 04:36 AST 19 Units/L (15-37) 03/27/25 04:36 ALT 18 Units/L (12-78) 03/27/25 04:36 Alkaline Phosphatase 81 Units/L (46-116) 03/27/25 04:36 Total Protein 5.3 g/dL (6.4-8.2) L 03/27/25 04:36 Albumin 1.9 g/dL (3.4-5.0) L 03/27/25 04:36 Globulin 3.4 g/dL (2.5-4.5) 03/27/25 04:36 Albumin/Globulin Ratio 0.6 Ratio (1.1-2.1) L 03/27/25 04:36 Amylase 32 Units/L (25-115) 03/22/25 08:24 Lipase 24 Units/L (16-77) 03/22/25 08:24 Specimen Type Catherized urine 03/22/25 13:50 Urine Color Dark yellow (YELLOW) 03/22/25 13:50 Urine Appearance Hazy (CLEAR) 03/22/25 13:50 Urine pH 5.0 (5.0 - 8.0) 03/22/25 13:50 Ur Specific [place] 1.025 (1.000-1.030) 03/22/25 13:50 Urine Protein 3+ (NEGATIVE) 03/22/25 13:50 Urine Glucose (UA) Negative (NEGATIVE) 03/22/25 13:50 Urine Ketones Negative (NEGATIVE) 03/22/25 13:50 Urine Blood 1+ (NEGATIVE) 03/22/25 13:50 Urine Nitrite Positive (NEGATIVE) 03/22/25 13:50 Urine Bilirubin Negative (NEGATIVE) 03/22/25 13:50 Urine Urobilinogen Normal (NORMAL) 03/22/25 13:50 Ur Leukocyte Esterase 3+ (NEGATIVE) 03/22/25 13:50 Urine RBC 3-5 /HPF (0-3) A 03/22/25 13:50 Urine WBC 30-50 /HPF (0-5) A 03/22/25 13:50 Ur Squamous Epith Cells Moderate /HPF (NEGATIVE) 03/22/25 13:50 Urine Bacteria 2+ /HPF (NEGATIVE) 03/22/25 13:50 Ur Culture Indicated? Yes/culture set up 03/22/25 13:50 Plan (1) Cecal volvulus: Status: Acute (2) Acute UTI: Status: Acute (3) Hypomagnesemia: Status: Acute (4) HTN (hypertension): Status: Chronic Qualifiers: Hypertension type: essential hypertension Qualified Code(s): I10 - Essential (primary) hypertension (5) Hyperlipidemia: Status: Chronic Qualifiers: Hyperlipidemia type: mixed hyperlipidemia Qualified Code(s): E78.2 - Mixed hyperlipidemia (6) MDD (major depressive disorder): Status: Chronic Qualifiers: Major depression recurrence: unspecified whether recurrent A ctive/Remission status: remission status unspecified Qualified Code(s): F32.9 - Major depressive disorder, single episode, unspecified (7) GERD (gastroesophageal reflux disease): Status: Chronic Qualifiers: Esophagitis presence: esophagitis presence not specified Qualified Code(s): K21.9 - Gastro-esophageal reflux disease without esophagitis
[2025-03-27] MEDS: NORVASC TAB 5 MG PO NR (11:00)
[2025-03-27] MEDS: ZOLOFT ONE (11:16)
--- NOTE | 2025-03-27 12:05 | RAD ---
EXAM: KUB HISTORY: DISTENTION; HTN, GERD SX: DIVINA, HYST, HERNIA REPAIR COMPARISON: CT dated 03/22/2025 TECHNIQUE: AP abdomen, supine FINDINGS: Midline laparotomy franklin in place. Air-filled small and large bowel loops throughout the abdomen. No gross free peritoneal air. IMPRESSION: Air-filled small and large bowel loops throughout the abdomen, likely secondary to postoperative ileus. THIS IS AN ELECTRONICALLY VERIFIED FINAL REPORT 03/27/2025 12:02 PM - Electronically signed by Nader Sadelr MD
[2025-03-27] MEDS: REQUIP PO SCH (21:00)
[2025-03-27] MEDS: RESTORIL CAP 15 MG PO PRN (22:45)
[2025-03-28 06:07] LABS: MEAN PLATELET VOLUME 7.9 fL (7.4-11.0); RED CELL DISTRIBUTION WIDTH 13.1 % (11.6-16.5)
[2025-03-28 06:21] LABS: COR CA(FOR HYPOALB) 9.4 mg/dL (8.5-10.1); COR NA(FOR HYPERGLY) 139 mmol/L (136-145); CREATININE 0.79 mg/dL (0.55-1.02); eGFR NON BLACK RACES > 60 (>60)
[2025-03-28] MEDS ORDERED: CONSULT PHARMACY - POTASSIUM & MAGNESIUM XX SCH (07:00)
--- NOTE | 2025-03-28 07:56 | RAD ---
EXAM: KUB HISTORY: POST OP ILEUS ; CAD, CVA, DM, GERD, HTN, SLEEP APNEA, TIA SX: DIVINA. HYST, HERNIA, BREAST, BLADDER COMPARISON: 03/27/2025 TECHNIQUE: AP abdomen, supine FINDINGS: Slight decreased prominent air-filled small and large bowel loops throughout the abdomen. Percutaneous drain projects over the right hemiabdomen. Midline laparotomy franklin in place. No gross free peritoneal air. IMPRESSION: Mild decreased gas distended small and large bowel loops. THIS IS AN ELECTRONICALLY VERIFIED FINAL REPORT 03/28/2025 7:53 AM - Electronically signed by Nader Sadler MD
[2025-03-28] MEDS ORDERED: ZOLOFT ONE (08:06)
[2025-03-28] MEDS: K-DUR TAB 20 MEQ PO SCH (08:25)
[2025-03-28] MEDS: MAG-OX TAB PO SCH (08:25)
[2025-03-28] MEDS: NORVASC TAB 10 MG PO SCH (08:26)
[2025-03-28 09:51] VITALS: PULSE 63; O2SAT 98
[2025-03-28] MEDS: D5 1/2 NS + KCL 20 MEQ/L 1,000 ML with MAGNESIUM SULFATE 50% INJ VIAL 1 G IV SCH (10:02)
[2025-03-28 11:45] VITALS: BP 140/70; TEMP 98.2
[2025-03-28] MEDS ORDERED: NORVASC TAB 10 MG PO SCH (21:00)
== END 2025-03-28 10:59 | disposition swing bed (61) ==
LOC: ER 08:09 → MED/SURG 10:07 → ICU 18:49 → MED/SURG 03-24 14:26
PROVIDERS: ADMIT Internal Medicine; ATTEND Internal Medicine
PROC: CLINEPL (2025-03-22 15:00)
DX: E11.65 Type 2 diabetes mellitus with hyperglycemia; D64.89 Other specified anemias; I25.10 Atherosclerotic heart disease of native coronary artery without angina pectoris; K66.0 Peritoneal adhesions (postprocedural) (postinfection); N39.0 Urinary tract infection, site not specified; K56.2 Volvulus; K21.9 Gastro-esophageal reflux disease without esophagitis; F41.8 Other specified anxiety disorders; R26.89 Other abnormalities of gait and mobility; R94.31 Abnormal electrocardiogram [ECG] [EKG]; Z86.73 Personal history of transient ischemic attack (TIA), and cerebral infarction without residual deficits; R79.89 Other specified abnormal findings of blood chemistry; R41.82 Altered mental status, unspecified; F32.89 Other specified depressive episodes; I10 Essential (primary) hypertension; B96.29 Other Escherichia coli [E. coli] as the cause of diseases classified elsewhere; F32.9 Major depressive disorder, single episode, unspecified; D72.828 Other elevated white blood cell count; E83.42 Hypomagnesemia; Z16.29 Resistance to other single specified antibiotic; E78.2 Mixed hyperlipidemia; Z16.11 Resistance to penicillins; G25.81 Restless legs syndrome; E87.1 Hypo-osmolality and hyponatremia; R10.84 Generalized abdominal pain

== ENCOUNTER 2025-03-28 11:00 | Inpatient (IN) ==
[2025-03-28] MEDS ORDERED: VASOTEC INJ 2.5 MG VIAL IVP PRN (12:54)
[2025-03-28] MEDS ORDERED: TYLENOL 325 MG TAB PO PRN (12:54)
[2025-03-28] MEDS ORDERED: NS 250 ML IV 25 ML IV PRN ×2 (12:54)
[2025-03-28] MEDS ORDERED: NovoLIN R (or HumuLIN R) SUBCUT PRN (12:54)
[2025-03-28] MEDS ORDERED: ZOFRAN ODT PO PRN (13:01)
--- NOTE | 2025-03-28 13:16 | DR.H&P ---
H&P History & Physical for Day of: H&P Date: 03/28/25 Chief Complaint Chief Complaint: Generalized weakness, postop recovery History of Present Illness History of Present Illness: Patient was recently admitted for cecal volvulus, underwent surgery. She continues to feel weak due to recent hospitalization. She prefers to be admitted as swing bed. Patient will continue current treatment and care. Labs/imaging reviewed Plan: Continue current treatment. Admit as swing bed for PT/OT. Continue antibiotics. Continue surgery and postop care. Continue home medications. Replace electrolytes as per protocol. Monitor labs as needed. Past Medical History Past Medical History: Anemia, Anxiety, Coronary Artery Disease, CVA, Depression, Diabetes, Dyslipidemia, GERD, Hypertension and Sleep Apnea Additional Medical History: IBS, HIATAL HERNIA Past Surgical History Surgical History: Cholecystectomy, Hysterectomy and Other Additional Surgical History: Bladder tack-approximately 10 years ago Family History Family Medical History: Cancer Medications Home Medications: Home Medications Medication Instructions Recorded Confirmed Type aspirin 81 mg tablet,delayed 81 mg PO QDAY 03/23/23 History release bisoprolol fumarate 5 mg tablet 5 mg PO BID 03/22/25 1 05/22/24 History dicyclomine 10 mg capsule 10 mg PO TID PRN 03/22/25 History losartan 50 mg tablet 50 mg PO BID 03/22/25 History lovastatin 40 mg tablet 40 mg PO QDAY 03/22/2503/22 History ondansetron 8 mg disintegrating 8 mg PO Q8H PRN Nausea 03/22/25 03/22/25 History tablet ropinirole 0.5 mg tablet 0.5 mg PO QDAY 03/22/2503/10 History sertraline 100 mg tablet 100 mg PO QDAY 03/22/2503/10 History temazepam 30 mg capsule 30 mg PO QPM 03/22/25 History Allergies Allergies Allergy/AdvReac Type Severity Reaction Status Date / Time No Known Drug Allergies Allergy Verified 03/22/25 08:35 Review of Systems Constitutional: Weakness Eyes: No Symptoms Reported ENT: No Symptoms Reported Respiratory: No Symptoms Reported Cardiovascular: No Symptoms Reported Gastrointestinal: Abdominal Pain Genitourinary: No Symptoms Reported Musculoskeletal: No Symptoms Reported Skin: No Symptoms Reported Neurological: No Symptoms Reported Physical Exam Vital Signs: Vital Signs Blood Pressure [Right Arm] 140/70 Oriented: Normal Respiratory: Diminished Throughout Cardiovascular: Normal Auscultation: Bowel Sounds: Normal Tenderness: Periumbilical and Mild Skin: Normal Musculoskeletal: Normal Psychiatric: Normal Mood Description: Calm Affect: Normal Speech Pattern: Clear and Appropriate Assessment/Plan (1) Cecal volvulus: Status: Acute (2) Hyperlipidemia: Qualifiers: Hyperlipidemia type: mixed hyperlipidemia Qualified Code(s): E78.2 - Mixed hyperlipidemia Status: Chronic (3) Acute UTI: Status: Acute (4) Anemia: Qualifiers: Anemia type: unspecified type Qualified Code(s): D64.9 - Anemia, unspecified Status: Acute (5) GERD (gastroesophageal reflux disease): Qualifiers: Esophagitis presence: esophagitis presence not specified Qualified Code(s): K21.9 - Gastro-esophageal reflux disease without esophagitis Status: Chronic (6) HTN (hypertension): Qualifiers: Hypertension type: essential hypertension Qualified Code(s): I10 - Essential (primary) hypertension Status: Chronic (7) Generalized weakness: Status: Acute Review H&P Reviewed: Yes Patient was examined?: Yes
[2025-03-28] MEDS: ZOSYN VIAL 3.375 GRAMS 3.375 G in NS 100 ML IV 100 ML IV SCH (13:36)
[2025-03-28 14:09] VITALS: BMI 30.2
--- NOTE | 2025-03-28 20:09 | PT/OTEVAL ---
PT/OT OBJECTIVES - HISTORY Prescription: PT Consult Diagnosis: Cecal Volvulus s/p Ex Lap (Lysis of Adhesions & R Colectomy) Precautions: Fall Risk, Recent Abdominal Surgery + TIFFANY Drain PMH: Anemia, Anxiety, CAD, CVA, Depression, Diabetes, Dyslipidemia, GERD, HTN, Sleep Apnea, TIA, RLS, Cholecystectomy, Hernia Repair, Breast Surgery, Bladder Surgery Prior Level of Function: Independent Other: Per patient report & confirmed by present in room- they reside in single story home with 2 steps to enter. PLOF: Independent within home and community without a device. Pt reports that her and her share household duties and often go out to eat or get take out. DME: [facility] History of Present Illness: Mrs. Quintanilla is an 79 year old female who presented to ED on 03/22/2025 with progressively worsening abdominal pain and was admitted for further treatment. On 03/23/2025 pt underwent surgical intervention to include: 1. Exploratory laparotomy. 2. Lysis of abdominal adhesions and obstructing bands around the cecum. 3. Right colon resection involving part of the terminal ileum and cecum, part of the ascending colon. Pt was treated and medically stabilized and noted with a decline in overall strength and mobility so pt was transitioned to swing bed status on 03/28/2025 to address deficits and facilitate highest level of function and safe discharge planning back home with . - COGNITION Mental Status: Alert, Oriented, Name, Date, Place, Purpose Communication Status: Verbal Ability to Follow Directions: 2 Step - PAIN Abdomen Pain Scale: Discomfort Comments: "It's not too bad, just a little sore" - BED MOBILITY Rolling: Supervision - TRANSFERS Supine to Sit: Supervision Sit to Stand: Supervision, Minimal Sit to Stand Comment: Touch assist Sit or Stand Pivot: Supervision, Minimal Sit or Stand Pivot Comment: Touch assist Toileting: Supervision, Minimal Toileting comment: Touch assist - BALANCE Dynamic Sitting: Good Standing: Fair Balance Comment: Fair- Static Sitting: Good Standing: Fair - NEUROMOTOR/SENSATION Floyd. Lower Ext Sensation: WFL Coordination: WFL Proprioception: WFL - ROM Bilateral LE ROM: WFL Muscle Tone: WFL - STRENGTH Bilateral LE Strength Number: 4 Other comment: 4-/5 - GAIT Pt. ambulates how many feet?: 75 Amount of Assistance Required: Minimal Type of Assistive Device: Rolling Walker Comments: Touch assist, cues for safely using walker. - TREATMENT Date: 03/28/25 Time: 14:00 Treatment Type: Evaluation Treatment Provided: Gait, Therapeutic Activities - TOTAL TREATMENT TIME Total Time: 45 - POST ASSESSMENT Post Assessment Comment: Pt was found supine in bed in room and agreeable to participation in PT services. Pt provided more of her history and PLOF information. Reports minimal abdominal discomfort this date. Pt able to perform bed mobility tasks with supervision and increased time. Once at EOB, pt able to maintain sitting balance. Pt able to perform functional transfers from EOB, commode and recliner chair with touch assist. Pt ambulated with FWW and touch assist for 75ft x 2 and 15ft x 2 requiring seated therapeutic rest breaks between bouts. Pt easily fatigues and requires frequent therapeutic rest breaks throughout. PT POC and goals discussed with pt and with plan for home. Pt would benefit from continued PT services to address deficits and facilitate highest level of function and safe discharge planning. - EXIT DISPOSITION Exit Position: CHAIR Call light in reach: Yes Comments: present. PT/OT ASSESSMENT - PT Problem List: Decreased Bed Mobility, Decreased Transfers, Decreased Gait, Decreased Balance, Decreased Safety, Decreased LE Strength - PT GOALS Short Term Goals Days: 10 Mobility: Pt will perform bed mobility tasks with mod I Transfers: Pt will perform functional transfers with mod I Gait: Pt ambulate 250ft with FWW and mod I Balance: Pt will increase static standing balance to good Computer Field Technician Goals Days: 20 Gait: Pt will ambulate 300ft without a device and mod I Balance: Pt will increase dynamic standing balance good ROM/Strength: Pt will increase BLE strength to 5/5 Others: Pt will ascend/descend 2 stairs with mod I - PATIENT GOALS Patient/Family Goals: "I just want to get stronger so I can go home" Goals Discussed with Patient/Family: Yes Rehabilitation Potential: Good to meet stated goals Justification for Potential: Facilitate highest level of function and safe discharge planning. - PLAN Suggested Treatment Plan: Bed Mobility Training, Therapeutic Activity, Gait Training, Neuro Re-education, Therapeutic Ex with HEP, Patient Education, Family Education, Other Other comment: Manual Therapy - FREQUENCY AND DURATION PT: 5x per week x 20 days Expected Continuation of Care at Discharge: Home Health Anticipated Equipment Needs: TBD pending participation and progress with therapy.
[2025-03-28] MEDS ORDERED: PATIENT'S HOME MEDICATION (Temazepam 30 mg capsule) PO SCH (21:00)
[2025-03-28] MEDS: COZAAR PO SCH (21:10)
[2025-03-28] MEDS: ZEBETA TAB 5 MG PO SCH (21:10)
[2025-03-28] MEDS: NORVASC TAB 10 MG PO SCH (21:11)
[2025-03-28] MEDS: CRESTOR TAB 10 MG PO SCH (21:11)
[2025-03-28] MEDS: ULTRAM PO PRN (21:11)
[2025-03-28] MEDS: PROTONIX TAB 40 MG PO SCH (21:11)
[2025-03-28] MEDS: RESTORIL CAP 15 MG PO PRN (21:12)
[2025-03-28] MEDS: REQUIP PO SCH (21:12)
[2025-03-28] MEDS: SNACK - Diabetic Appropriate PO SCH (21:28)
[2025-03-28] MEDS: D5 1/2 NS + KCL 20 MEQ/L 1,000 ML with MAGNESIUM SULFATE 50% INJ VIAL 1 G IV SCH (23:47)
[2025-03-29] MEDS ORDERED: ZOLOFT ONE (08:03)
[2025-03-29] MEDS: ZOLOFT PO SCH (09:00)
[2025-03-29] MEDS: COLACE CAP 100 MG PO SCH (09:00)
[2025-03-29] MEDS: LOVENOX INJ 40 MG SYR SC SCH (09:00)
--- NOTE | 2025-03-29 13:33 | PT/OTEVAL ---
PT/OT OBJECTIVES - HISTORY Prescription: OT Consult Diagnosis: Cecal Volvulus s/p Ex Lap (Lysis of Adhesions & R Colectomy) Precautions: Fall Risk, Recent Abdominal Surgery + TIFFANY Drain PMH: Anemia, Anxiety, CAD, CVA, Depression, Diabetes, Dyslipidemia, GERD, HTN, Sleep Apnea, TIA, RLS, Cholecystectomy, Hernia Repair, Breast Surgery, Bladder Surgery Prior Level of Function: Independent Other: Per pt report & confirmed by present in room- pt lives in a 1 story home with 2 steps to enter. Pt is (I) with ADLs and reports that her and her share household duties and often go out to eat or get take out. DME includes [facility] History of Present Illness: Pt is a 79 year old female who presented to ED with progressively worsening abdominal pain and was admitted for further treatment. Pt underwent surgical intervention to include: 1. Exploratory laparotomy. 2. Lysis of abdominal adhesions and obstructing bands around the cecum. 3. Right colon resection involving part of the terminal ileum and cecum, part of the ascending colon. Pt was treated and medically stabilized and noted with a decline in overall strength and ADLs so pt was transitioned to swing bed status to address deficits and facilitate highest level of ADL function needed for safe discharge planning back home with . - COGNITION Mental Status: Alert, Name Communication Status: Verbal Ability to Follow Directions: 2 Step Affect: Calm - PAIN Abdomen Pain Scale: Discomfort Comments: "It's not too bad, just a little sore" - TRANSFERS Sit to Stand: Supervision, Minimal Sit to Stand Comment: Touch A Sit or Stand Pivot: Supervision, Minimal Sit or Stand Pivot Comment: Touch A Toileting: Minimal Safety (requires cues for:): Hand Placement Precaution - ADL'S Upper Body ADL: Minimum Lower Body ADL: Minimum Toileting: Minimum Bathing: Minimum - BALANCE Dynamic Sitting: Good Standing: Fair Balance Comment: Fair- Static Sitting: Good Standing: Fair - NEUROMOTOR/SENSATION Floyd. Upper Ext Sensation: WFL Coordination: WFL Floyd. Lower Ext Sensation: WFL Coordination: WFL Proprioception: WFL - ROM Bilateral UE ROM: WFL - STRENGTH Bilateral UE Strength Number: 3 Other comment: 3+/5 in BUE Bilateral LE Strength Number: 4 Other comment: 4-/5 - GAIT Pt. ambulates how many feet?: 25 Amount of assistance required: Minimal Type of Assistive Device: Rolling Walker - TREATMENT Date: 03/29/25 Time: 10:00 Treatment Type: Evaluation Treatment Provided: Other - TOTAL TREATMENT TIME Total Time: 60 - POST ASSESSMENT Post Assessment Comment: Pt was seen for skilled OT to assess CLOF. Pt was able top provide PLOF and hx and agreeable to participate with skilled OT. Pt was in the shower upon arrival. Pt was given min A for LB/UB bathing. Mod A for LB dressing when standing and min when seated. UB dressing with min A for bra. Pt STS with touch A. Functionally AMB around room with touch A. LOB x1 with fair recovery. Pt fatigues easily and given seated RBs for fatigue. educated on resting when fatigues. Pt agreeable to sit up in recliner, all needs met and call light within reach. Pt demonstrates deficits with ADLs and ADL functional mobility. Pt would benefit from skilled OT services to address ADL deficits to facilitate highest level of ADL function needed for safe d/c planning. - EXIT DISPOSITION Exit Position: CHAIR Call light in reach: Yes PT/OT ASSESSMENT - OT Problem List: Decreased Mobility ADL's, Decreased Dressing, Decreased Bathing, Decreased UE Strength - PT GOALS Short Term Goals Days: 10 Mobility: Pt will perform bed mobility tasks with mod I Transfers: Pt will perform functional transfers with mod I Gait: Pt ambulate 250ft with FWW and mod I Balance: Pt will increase static standing balance to good Project Inspector Goals Days: 20 Gait: Pt will ambulate 300ft without a device and mod I Balance: Pt will increase dynamic standing balance good ROM/Strength: Pt will increase BLE strength to 5/5 Others: Pt will ascend/descend 2 stairs with mod I - OT GOALS Project Inspector Goals Days: 20 Mobility for ADL's: Pt to improve functional ADL transfers to mod (I) Dressing: Pt to improve LB dressing to set up A Bathing: Pt to improve overall bathing to set up A Upper Ext. Strength/Use: Pt to improve MMT in BUE by 1 grade Other: Pt to improve FAT to G Short Term Goals Days: 10 Mobility for ADL's: Pt to improve functional ADL transfers to set up A with LRAD Dressing: Pt to improve UB dressing to set up A Bathing: Pt to improve overall bathing to supv A Upper Ext. Strength/Use: Pt to improve MMT in BUE by 1/2 grade Other: Pt to improve FAT to F+ - PATIENT GOALS Patient/Family Goals: To go home and feel better Rehabilitation Potential: G to meet stated goals Justification for Potential: To facilitate highest level of ADL function needed for safe d/c planning. - PLAN Suggested Treatment Plan: Therapeutic Activity, Self Care Training, Neuro Re- education, Therapeutic Ex with HEP, Patient Education, Family Education - FREQUENCY AND DURATION OT: 5x a week x 20 days Expected Continuation of Care at Discharge: Home, Home Health
--- NOTE | 2025-03-29 16:42 | RAD ---
EXAM: KUB HISTORY: S/P ABD SURGERY; COMPARISON: 03/28/2025 TECHNIQUE: A P abdomen, supine FINDINGS: Scattered gas-filled small and large bowel loops are slightly decreased from comparison. Midline skin franklin and right-sided percutaneous drain in place. Right upper quadrant metallic surgical clips. IMPRESSION: Continued mild decrease in gas-filled small and large bowel loops. THIS IS AN ELECTRONICALLY VERIFIED FINAL REPORT 03/29/2025 4:39 PM - Electronically signed by Nader Sadler MD
[2025-03-30 06:12] LABS: MEAN PLATELET VOLUME 7.6 fL (7.4-11.0); RED CELL DISTRIBUTION WIDTH 13.6 % (11.6-16.5)
[2025-03-30 06:24] LABS: COR CA(FOR HYPOALB) 9.6 mg/dL (8.5-10.1); COR NA(FOR HYPERGLY) 140 mmol/L (136-145); CREATININE 0.75 mg/dL (0.55-1.02); eGFR NON BLACK RACES > 60 (>60)
[2025-03-30] MEDS ORDERED: ZOLOFT ONE (09:51)
[2025-03-30] MEDS: COLACE CAP 100 MG PO SCH (10:01)
--- NOTE | 2025-03-30 12:58 | DR.PROGNOT ---
HOSPITAL PROGRESS NOTE Progress Note for Day of: Progress Note Date: 03/30/25 Chief Complaint Chief Complaint: Patient is feeling better With less abdominal pain. No nausea or vomiting,Tolerating diet fairly well Although her appetite is poor. Still having significant drainage and Adán-Bull drain about 80 cc per shift. Past Medical Family Social History Past Med/Fam/Surg Hx: No changes since H&P Allergies: Allergies No Known Drug Allergies Allergy (Verified 03/22/25 08:35) Vital Signs Vital Signs: Vital Signs Temperature 98.2 F Pulse Rate [Apical] 66 Respiratory Rate 18 Blood Pressure [Left Arm] 157/69 O2 Sat by Pulse Oximetry 96 Physical Exam Oriented: Normal Cardiovascular: Normal GI:Auscultation: Normal GI: Tenderness: Periumbilical and Mild Skin: Normal Musculoskeletal: Normal Psychiatric: Normal Mood Description: Calm Affect: Normal Speech Pattern: Clear and Appropriate Laboratory and Diagnostics 03/30/25 05:26 03/30/25 05:26 Labs: Laboratory WBC 8.6 X10^3/uL (3.6-10.0) 03/30/25 05:26 RBC 3.46 X10^6/uL (3.5-5.4) L 03/30/25 05:26 Hgb 10.3 g/dL (12.0-16.0) L 03/30/25 05:26 Hct 29.9 % (36.0-47.0) L 03/30/25 05:26 MCV 86.4 fL (80.0-100.0) 03/30/25 05:26 MCH 29.8 pg (27.0-34.0) 03/30/25 05:26 MCHC 34.4 g/dL (33.0-35.0) 03/30/25 05:26 RDW 13.6 % (11.6-16.5) 03/30/25 05:26 Plt Count 264 X10^3/uL (150.0-450.0) 03/30/25 05:26 MPV 7.6 fL (7.4-11.0) 03/30/25 05:26 Neut % (Auto) 68.5 % (42.0-75.0) 03/30/25 05:26 Lymph % (Auto) 17.3 % (21.0-51.0) L 03/30/25 05:26 Gooding % (Auto) 9.3 % (0.0-13.0) 03/30/25 05:26 Eos % (Auto) 4.3 % (0.9-2.9) H 03/30/25 05:26 Baso % (Auto) 0.6 % (0.2-1.0) 03/30/25 05:26 Neut # (Auto) 5.9 x10^3/uL (2.2-4.8) H 03/30/25 05:26 Lymph # (Auto) 1.5 X10^3/uL (1.3-2.9) 03/30/25 05:26 Gooding # (Auto) 0.8 x10^3/uL (0.3-0.8) 03/30/25 05:26 Eos # (Auto) 0.4 x10^3/uL (0.0-0.2) H 03/30/25 05:26 Baso # (Auto) 0.0 X10^3/uL (0.0-0.1) 03/30/25 05:26 Absolute Nucleated RBC 0.0 /100WBC 03/30/25 05:26 Sodium 139 mmol/L (136-145) 03/30/25 05:26 Corrected Sodium 140 mmol/L (136-145) 03/30/25 05:26 Potassium 4.2 mmol/L (3.5-5.1) 03/30/25 05:26 Chloride 106 mmol/L (98-107) 03/30/25 05:26 Carbon Dioxide 27.3 mmol/L (21-32) 03/30/25 05:26 BUN 7 mg/dL (7-18) 03/30/25 05:26 Creatinine 0.75 mg/dL (0.55-1.02) 03/30/25 05:26 Est GFR (MDRD) Af Amer > 60 (>60) 03/30/25 05:26 Est GFR (MDRD) Non-Af > 60 (>60) 03/30/25 05:26 Glucose 148 mg/dL (65-99) H 03/30/25 05:26 POC Glucose (mg/dL) 149 mg/dL (65-99) H 03/30/25 11:18 Calcium 8.0 mg/dL (8.5-10.1) L 03/30/25 05:26 Corrected Calcium 9.6 mg/dL (8.5-10.1) 03/30/25 05:26 Total Bilirubin 0.30 mg/dL (0.2-1.0) 03/30/25 05:26 AST 15 Units/L (15-37) 03/30/25 05:26 ALT 14 Units/L (12-78) 03/30/25 05:26 Alkaline Phosphatase 88 Units/L (46-116) 03/30/25 05:26 Total Protein 5.5 g/dL (6.4-8.2) L 03/30/25 05:26 Albumin 2.0 g/dL (3.4-5.0) L 03/30/25 05:26 Globulin 3.5 g/dL (2.5-4.5) 03/30/25 05:26 Albumin/Globulin Ratio 0.6 Ratio (1.1-2.1) L 03/30/25 05:26 Assessment and Plan 1: 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 Patient needs more physical therapy and nutritional support. Will keep a Adán-Bull drain over the weekend. Will follow in 10 days as outpatient.
--- NOTE | 2025-03-30 13:41 | PCM.PROG ---
Progress Note Progress Note for Day of Date of Exam: 03/30/25 Subjective Subjective: Patient admitted swing bed for rehab post right colectomy with primary anastomosis. She continues to improve and is working with physical therapy. She is tolerating more po intake. Per , has not had bowel movement in two days. Labs/imaging reviewed: - WBC 8.6, hemoglobin 10.3, platelets 264, sodium 139, potassium 4.2, creatinine 0.75, glucose 148. Plan: Continue current treatment. PT/OT. Will increase Colace to twice a day dosing. Continue antibiotics. Continue surgery and postop care. Continue home medications. Replace electrolytes as per protocol. Monitor labs as needed. Past Medical Family Social History Past Med/Fam/Surg Hx: No changes since H&P Allergies: Allergies No Known Drug Allergies Allergy (Verified 03/22/25 08:35) Review of Systems ROS changes noted: see HPI Vital Signs and I&O's Vital Signs: Vital Signs Temperature 98.2 F Pulse Rate [Apical] 66 Respiratory Rate 18 Blood Pressure [Left Arm] 157/69 O2 Sat by Pulse Oximetry 96 Intake and Output: Intake & Output 03/27/25 03/28/25 03/29/25 03/30/25 23:59 23:59 23:59 23:59 Intake Total 2203 / 2203 3601 / 3601 1128 / 1128 Output Total 40 / 40 158 / 158 80 / 80 Balance 2163 / 2163 3443 / 3443 1048 / 1048 Physical Exam Oriented: Normal Respiratory: Normal Cardiovascular: Normal Auscultation: Bowel Sounds: Normal Tenderness: Periumbilical and Mild Skin: Normal Musculoskeletal: Normal Psychiatric: Normal Mood Description: Calm Affect: Normal Speech Pattern: Clear and Appropriate Laboratory and Diagnostics 03/30/25 05:26 03/30/25 05:26 Labs: Laboratory WBC 8.6 X10^3/uL (3.6-10.0) 03/30/25 05: RBC 3.46 X10^6/uL (3.5-5.4) L 03/30/25 05:26 Hgb 10.3 g/dL (12.0-16.0) L 03/30/25 05:26 Hct 29.9 % (36.0-47.0) L 03/30/25 05:26 MCV 86.4 fL (80.0-100.0) 03/30/25 05:26 MCH 29.8 pg (27.0-34.0) 03/30/25 05:26 MCHC 34.4 g/dL (33.0-35.0) 03/30/25 05:26 RDW 13.6 % (11.6-16.5) 03/30/25 05:26 Plt Count 264 X10^3/uL (150.0-450.0) 03/30/25 05:26 MPV 7.6 fL (7.4-11.0) 03/30/25 05:26 Neut % (Auto) 68.5 % (42.0-75.0) 03/30/25 05:26 Lymph % (Auto) 17.3 % (21.0-51.0) L 03/30/25 05:26 Maury % (Auto) 9.3 % (0.0-13.0) 03/30/25 05:26 Eos % (Auto) 4.3 % (0.9-2.9) H 03/30/25 05:26 Baso % (Auto) 0.6 % (0.2-1.0) 03/30/25 05:26 Neut # (Auto) 5.9 x10^3/uL (2.2-4.8) H 03/30/25 05:26 Lymph # (Auto) 1.5 X10^3/uL (1.3-2.9) 03/30/25 05:26 Maury # (Auto) 0.8 x10^3/uL (0.3-0.8) 03/30/25 05:26 Eos # (Auto) 0.4 x10^3/uL (0.0-0.2) H 03/30/25 05:26 Baso # (Auto) 0.0 X10^3/uL (0.0-0.1) 03/30/25 05:26 Absolute Nucleated RBC 0.0 /100WBC 03/30/25 05:26 Sodium 139 mmol/L (136-145) 03/30/25 05:26 Corrected Sodium 140 mmol/L (136-145) 03/30/25 05:26 Potassium 4.2 mmol/L (3.5-5.1) 03/30/25 05:26 Chloride 106 mmol/L (98-107) 03/30/25 05:26 Carbon Dioxide 27.3 mmol/L (21-32) 03/30/25 05:26 BUN 7 mg/dL (7-18) 03/30/25 05:26 Creatinine 0.75 mg/dL (0.55-1.02) 03/30/25 05:26 Est GFR (MDRD) Af Amer > 60 (>60) 03/30/25 05:26 Est GFR (MDRD) Non-Af > 60 (>60) 03/30/25 05:26 Glucose 148 mg/dL (65-99) H 03/30/25 05:26 POC Glucose (mg/dL) 149 mg/dL (65-99) H 03/30/25 11:18 Calcium 8.0 mg/dL (8.5-10.1) L 03/30/25 05:26 Corrected Calcium 9.6 mg/dL (8.5-10.1) 03/30/25 05:26 Total Bilirubin 0.30 mg/dL (0.2-1.0) 03/30/25 05:26 AST 15 Units/L (15-37) 03/30/25 05:26 ALT 14 Units/L (12-78) 03/30/25 05:26 Alkaline Phosphatase 88 Units/L (46-116) 03/30/25 05:26 Total Protein 5.5 g/dL (6.4-8.2) L 03/30/25 05:26 Albumin 2.0 g/dL (3.4-5.0) L 03/30/25 05:26 Globulin 3.5 g/dL (2.5-4.5) 03/30/25 05:26 Albumin/Globulin Ratio 0.6 Ratio (1.1-2.1) L 03/30/25 05:26 Plan (1) Cecal volvulus: Status: Acute (2) Hyperlipidemia: Status: Chronic Qualifiers: Hyperlipidemia type: mixed hyperlipidemia Qualified Code(s): E78.2 - Mixed hyperlipidemia (3) Acute UTI: Status: Acute (4) Anemia: Status: Acute Qualifiers: Anemia type: unspecified type Qualified Code(s): D64.9 - Anemia, unspecified (5) GERD (gastroesophageal reflux disease): Status: Chronic Qualifiers: Esophagitis presence: esophagitis presence not specified Qualified Code(s): K21.9 - Gastro-esophageal reflux disease without esophagitis (6) HTN (hypertension): Status: Chronic Qualifiers: Hypertension type: essential hypertension Qualified Code(s): I10 - Essential (primary) hypertension (7) Generalized weakness: Status: Acute
[2025-03-31] MEDS: NORCO 5/325 MG TAB PO PRN (07:31)
[2025-03-31] MEDS ORDERED: ZOLOFT ONE (10:46)
[2025-03-31] MEDS: VISTARIL PO PRN (13:45)
[2025-04-02 06:03] LABS: MEAN PLATELET VOLUME 7.5 fL (7.4-11.0); RED CELL DISTRIBUTION WIDTH 13.4 % (11.6-16.5)
[2025-04-02 06:12] LABS: COR CA(FOR HYPOALB) 9.7 mg/dL (8.5-10.1); COR NA(FOR HYPERGLY) 139 mmol/L (136-145); CREATININE 0.72 mg/dL (0.55-1.02); eGFR NON BLACK RACES > 60 (>60)
[2025-04-02] MEDS ORDERED: ZOLOFT ONE (08:00)
[2025-04-02] MEDS: D5 1/2 NS 1,000 ML 1,000 ML IV SCH (08:25)
--- NOTE | 2025-04-02 10:20 | PCM.PROG ---
Progress Note Progress Note for Day of Date of Exam: 04/02/25 Subjective Subjective: Patient seen at bedside, no acute events overnight. She is admitted as swing bed for rehab post right colectomy with primary anastomosis. She continues to improve and is working with physical therapy. She is tolerating more po intake. She has been having BMs. She still has TIFFANY drain in place. Labs/imaging reviewed: - WBC 7.9, hemoglobin 10, platelets 302, sodium 138, potassium 4.6, creatinine 0.72, glucose 158. Plan: Continue current treatment. PT/OT. DC IVF. Follow surgery recommendations and postop care. Continue home medications. Replace electrolytes as per protocol. Monitor labs as needed. Past Medical Family Social History Past Med/Fam/Surg Hx: No changes since H&P Allergies: Allergies No Known Drug Allergies Allergy (Verified 03/22/25 08:35) Vital Signs and I&O's Intake and Output: Intake & Output 03/30/25 03/31/25 04/01/25 04/02/25 23:59 23:59 23:59 23:59 Intake Total 4619 / 4619 3141 / 3141 4689 / 4689 1047 / 1047 Output Total 150 / 150 40 / 40 10 / 10 Balance 4469 / 4469 3116 / 3116 4649 / 4649 1037 / 1037 Physical Exam Oriented: Normal Throat: Normal Respiratory: Normal Cardiovascular: Normal Auscultation: Bowel Sounds: Normal Palpation: Normal Tenderness: Mild Skin: Normal Musculoskeletal: Normal Psychiatric: Normal Mood Description: Calm Affect: Normal Speech Pattern: Clear and Appropriate Laboratory and Diagnostics 04/02/25 05:33 04/02/25 05:33 Labs: Laboratory WBC 7.9 X10^3/uL (3.6-10.0) 04/02/25 05:33 RBC 3.44 X10^6/uL (3.5-5.4) L 04/02/25 05:33 Hgb 10.0 g/dL (12.0-16.0) L 04/02/25 05:33 Hct 29.9 % (36.0-47.0) L 04/02/25 05:33 MCV 86.9 fL (80.0-100.0) 04/02/25 05:33 MCH 29.2 pg (27.0-34.0) 04/02/25 05:33 MCHC 33.6 g/dL (33.0-35.0) 04/02/25 05:33 RDW 13.4 % (11.6-16.5) 04/02/25 05:33 Plt Count 302 X10^3/uL (150.0-450.0) 04/02/25 05:33 MPV 7.5 fL (7.4-11.0) 04/02/25 05:33 Neut % (Auto) 69.1 % (42.0-75.0) 04/02/25 05:33 Lymph % (Auto) 19.8 % (21.0-51.0) L 04/02/25 05:33 Wheeler % (Auto) 6.5 % (0.0-13.0) 04/02/25 05:33 Eos % (Auto) 4.0 % (0.9-2.9) H 04/02/25 05:33 Baso % (Auto) 0.6 % (0.2-1.0) 04/02/25 05:33 Neut # (Auto) 5.5 x10^3/uL (2.2-4.8) H 04/02/25 05:33 Lymph # (Auto) 1.6 X10^3/uL (1.3-2.9) 04/02/25 05:33 Wheeler # (Auto) 0.5 x10^3/uL (0.3-0.8) 04/02/25 05:33 Eos # (Auto) 0.3 x10^3/uL (0.0-0.2) H 04/02/25 05:33 Baso # (Auto) 0.0 X10^3/uL (0.0-0.1) 04/02/25 05:33 Absolute Nucleated RBC 0.1 /100WBC 04/02/25 05:33 Sodium 138 mmol/L (136-145) 04/02/25 05:33 Corrected Sodium 139 mmol/L (136-145) 04/02/25 05:33 Potassium 4.6 mmol/L (3.5-5.1) 04/02/25 05:33 Chloride 105 mmol/L (98-107) 04/02/25 05:33 Carbon Dioxide 26.8 mmol/L (21-32) 04/02/25 05:33 BUN 5 mg/dL (7-18) L 04/02/25 05:33 Creatinine 0.72 mg/dL (0.55-1.02) 04/02/25 05:33 Est GFR (MDRD) Af Amer > 60 (>60) 04/02/25 05:33 Est GFR (MDRD) Non-Af > 60 (>60) 04/02/25 05:33 Glucose 158 mg/dL (65-99) H 04/02/25 05:33 POC Glucose (mg/dL) 149 mg/dL (65-99) H 04/02/25 05:17 Calcium 8.2 mg/dL (8.5-10.1) L 04/02/25 05:33 Corrected Calcium 9.7 mg/dL (8.5-10.1) 04/02/25 05:33 Magnesium 2.3 mg/dL (2.0-2.9) 04/02/25 05:33 Total Bilirubin 0.20 mg/dL (0.2-1.0) 04/02/25 05:33 AST 17 Units/L (15-37) 04/02/25 05:33 ALT 16 Units/L (12-78) 04/02/25 05:33 Alkaline Phosphatase 72 Units/L (46-116) 04/02/25 05:33 Total Protein 6.2 g/dL (6.4-8.2) L 04/02/25 05:33 Albumin 2.1 g/dL (3.4-5.0) L 04/02/25 05:33 Globulin 4.1 g/dL (2.5-4.5) 04/02/25 05:33 Albumin/Globulin Ratio 0.5 Ratio (1.1-2.1) L 04/02/25 05:33 Plan (1) Generalized weakness: Status: Acute (2) Cecal volvulus: Status: Acute (3) Hyperlipidemia: Status: Chronic Qualifiers: Hyperlipidemia type: mixed hyperlipidemia Qualified Code(s): E78.2 - Mixed hyperlipidemia (4) Acute UTI: Status: Acute (5) Anemia: Status: Acute Qualifiers: Anemia type: unspecified type Qualified Code(s): D64.9 - Anemia, unspecified (6) GERD (gastroesophageal reflux disease): Status: Chronic Qualifiers: Esophagitis presence: esophagitis presence not specified Qualified Code(s): K21.9 - Gastro-esophageal reflux disease without esophagitis (7) HTN (hypertension): Status: Chronic Qualifiers: Hypertension type: essential hypertension Qualified Code(s): I10 - Essential (primary) hypertension
--- NOTE | 2025-04-02 17:38 | NOTE.SOAP ---
Soap Note Note for Day of Date of Exam: 04/02/25 Subjective Data Subjective Data: Patient on swing bed after having a resection of cecal volvulus with gangrenous changes on 1113. Patient tolerating a diet and having good bowel movements. TIFFANY drainage was 40 mL at liters yesterday and 10 mL today it is yellow fluid and white blood cell count is normal. Patient cultures grew E. coli in the urine and in the wound both sensitive to Cipro. Objective Data Temperature: 98.1 F Pulse Rate: 62 Respiratory Rate: 17 Blood Pressure: 142/68 O2 Sat by Pulse Oximetry: 99 Objective Data: Abdomen soft and benign, not distended. Incision is well-healed. No redness around franklin. Adán-Bull drainage is serous in nature. Hemoglobin is 10 g, white blood cell count is 7900. Cultures as above. Assessment Assessment: Will remove franklin and Steri-Strip wound tomorrow. Will remove drain tomorrow. Patient may be discharge from my standpoint on dalia quinolone for the positive cultures and have follow-up with Dr. Hernandez in approximately 1 week Plan Plan: as above
[2025-04-03] MEDS ORDERED: ZOLOFT ONE (07:29)
[2025-04-03 09:14] VITALS: BP 154/68; PULSE 60; RESP 17; TEMP 98.3; O2SAT 96
--- NOTE | 2025-04-04 10:45 | W.DIS.FURT ---
Summary of Discharge Discharge Summary of Date Date of Exam: 04/03/25 Admission Date Date of Admission: 03/29/25 Admission Diagnosis Hospital Course: Patient was transitioned to swing bed after being admitted for cecal volvulus requiring surgery. She did well with PT/OT. She completed her antibiotics. Her labs are monitored as needed and electrolytes replaced as needed. Surgery removed TIFFANY drain. She is ambulating and tolerating diet. She was stable for discharge and will follow-up with surgery and PCP outpatient. She will be discharged with home health services for physical therapy. Vital Signs: Vital Signs (72 hours) 03/31/25 11:08 03/31/25 11:33 03/31/25 15:29 Temperature 98.4 F 98.4 F Pulse Rate Pulse Rate [Apical] 58 L 60 Respiratory Rate 18 19 Blood Pressure Blood Pressure [Left Arm] Blood Pressure [Right Arm] 145/79 142/76 O2 Sat by Pulse Oximetry 96 97 Oxygen Delivery Method Room Air Room Air Room Air FIO2% 03/31/25 19:00 03/31/25 19:00 04/01/25 08:36 Temperature 98.1 F 98.4 F Pulse Rate Pulse Rate [Apical] 62 66 Respiratory Rate 20 18 Blood Pressure Blood Pressure [Left Arm] 150/68 162/72 Blood Pressure [Right Arm] O2 Sat by Pulse Oximetry 96 95 Oxygen Delivery Method Room Air Room Air FIO2% 04/01/25 09:53 04/01/25 13:22 04/01/25 14:22 Temperature Pulse Rate Pulse Rate [Apical] Respiratory Rate 18 18 Blood Pressure Blood Pressure [Left Arm] Blood Pressure [Right Arm] O2 Sat by Pulse Oximetry Oxygen Delivery Method Room Air FIO2% 04/01/25 19:00 04/01/25 19:00 04/01/25 20:44 Temperature 98.5 F Pulse Rate Pulse Rate [Apical] 61 Respiratory Rate 20 Blood Pressure Blood Pressure [Left Arm] Blood Pressure [Right Arm] 127/58 O2 Sat by Pulse Oximetry 97 Oxygen Delivery Method Room Air Room Air Room Air FIO2% 21 04/01/25 20:44 04/02/25 07:00 04/02/25 07:00 Temperature 98.1 F Pulse Rate 63 Pulse Rate [Apical] 62 Respiratory Rate 17 Blood Pressure Blood Pressure [Left Arm] Blood Pressure [Right Arm] 142/68 O2 Sat by Pulse Oximetry 97 99 Oxygen Delivery Method Room Air Room Air FIO2% 04/02/25 17:38 04/02/25 19:00 04/02/25 19:00 Temperature 98.1 F 98.0 F Pulse Rate 62 Pulse Rate [Apical] 59 L Respiratory Rate 17 16 Blood Pressure 142/68 Blood Pressure [Left Arm] Blood Pressure [Right Arm] 149/69 O2 Sat by Pulse Oximetry 99 97 Oxygen Delivery Method Room Air Room Air FIO2% 04/02/25 22:30 04/03/25 07:00 04/03/25 07:00 Temperature 98.3 F Pulse Rate Pulse Rate [Apical] 60 Respiratory Rate 17 Blood Pressure Blood Pressure [Left Arm] Blood Pressure [Right Arm] 154/68 O2 Sat by Pulse Oximetry 96 Oxygen Delivery Method Room Air Room Air Room Air FIO2% 04/03/25 08:32 Temperature Pulse Rate Pulse Rate [Apical] Respiratory Rate Blood Pressure Blood Pressure [Left Arm] Blood Pressure [Right Arm] O2 Sat by Pulse Oximetry Oxygen Delivery Method Room Air FIO2% Labs: Laboratory Last Values WBC 7.9 X10^3/uL (3.6-10.0) 04/02/25 05:33 RBC 3.44 X10^6/uL (3.5-5.4) L 04/02/25 05:33 Hgb 10.0 g/dL (12.0-16.0) L 04/02/25 05:33 Hct 29.9 % (36.0-47.0) L 04/02/25 05:33 MCV 86.9 fL (80.0-100.0) 04/02/25 05:33 MCH 29.2 pg (27.0-34.0) 04/02/25 05:33 MCHC 33.6 g/dL (33.0-35.0) 04/02/25 05:33 RDW 13.4 % (11.6-16.5) 04/02/25 05:33 Plt Count 302 X10^3/uL (150.0-450.0) 04/02/25 05:33 MPV 7.5 fL (7.4-11.0) 04/02/25 05:33 Neut % (Auto) 69.1 % (42.0-75.0) 04/02/25 05:33 Lymph % (Auto) 19.8 % (21.0-51.0) L 04/02/25 05:33 Maury % (Auto) 6.5 % (0.0-13.0) 04/02/25 05:33 Eos % (Auto) 4.0 % (0.9-2.9) H 04/02/25 05:33 Baso % (Auto) 0.6 % (0.2-1.0) 04/02/25 05:33 Neut # (Auto) 5.5 x10^3/uL (2.2-4.8) H 04/02/25 05:33 Lymph # (Auto) 1.6 X10^3/uL (1.3-2.9) 04/02/25 05:33 Maury # (Auto) 0.5 x10^3/uL (0.3-0.8) 04/02/25 05:33 Eos # (Auto) 0.3 x10^3/uL (0.0-0.2) H 04/02/25 05:33 Baso # (Auto) 0.0 X10^3/uL (0.0-0.1) 04/02/25 05:33 Absolute Nucleated RBC 0.1 /100WBC 04/02/25 05:33 Sodium 138 mmol/L (136-145) 04/02/25 05:33 Corrected Sodium 139 mmol/L (136-145) 04/02/25 05:33 Potassium 4.6 mmol/L (3.5-5.1) 04/02/25 05:33 Chloride 105 mmol/L (98-107) 04/02/25 05:33 Carbon Dioxide 26.8 mmol/L (21-32) 04/02/25 05:33 BUN 5 mg/dL (7-18) L 04/02/25 05:33 Creatinine 0.72 mg/dL (0.55-1.02) 04/02/25 05:33 Est GFR (MDRD) Af Amer > 60 (>60) 04/02/25 05:33 Est GFR (MDRD) Non-Af > 60 (>60) 04/02/25 05:33 Glucose 158 mg/dL (65-99) H 04/02/25 05:33 POC Glucose (mg/dL) 151 mg/dL (65-99) H 04/03/25 05:25 Calcium 8.2 mg/dL (8.5-10.1) L 04/02/25 05:33 Corrected Calcium 9.7 mg/dL (8.5-10.1) 04/02/25 05:33 Magnesium 2.3 mg/dL (2.0-2.9) 04/02/25 05:33 Total Bilirubin 0.20 mg/dL (0.2-1.0) 04/02/25 05:33 AST 17 Units/L (15-37) 04/02/25 05:33 ALT 16 Units/L (12-78) 04/02/25 05:33 Alkaline Phosphatase 72 Units/L (46-116) 04/02/25 05:33 Total Protein 6.2 g/dL (6.4-8.2) L 04/02/25 05:33 Albumin 2.1 g/dL (3.4-5.0) L 04/02/25 05:33 Globulin 4.1 g/dL (2.5-4.5) 04/02/25 05:33 Albumin/Globulin Ratio 0.5 Ratio (1.1-2.1) L 04/02/25 05:33 Reason For Visit: SWINGBED, DECONDITIONING, S/P EXP LAP, WEAKNESS Discharge Diagnosis All Active Problems (Updated 03/28/25 @ 13:16 by Nolvia Grier MD) Generalized weakness (Acute) Hypomagnesemia (Acute) MDD (major depressive disorder) (Chronic) Hyperlipidemia (Chronic) Cecal volvulus (Acute) Abdominal pain (Acute) Acute UTI (Acute) Acute cholecystitis (Acute) Anemia (Acute) GERD (gastroesophageal reflux disease) (Chronic) Hiatal hernia (Acute) HTN (hypertension) (Chronic) Intractable nausea and vomiting (Acute) Abdominal pain (Acute) Gastric outlet obstruction (Acute) Nausea & vomiting (Acute) COVID-19 (Acute) Plan of Treatment: Continue with present treatment and follow up plan. Pt is to keep follow up a ppointment as instructed and take medications as ordered. Discharge Medications Discharge Medications: No Known Drug Allergies Allergy (Verified 03/22/25 08:35) Discharge Disposition Discharge Disposition: To home Discharge Condition: Stable Discharge Plan Discharge Plan Hospital Course: Patient was transitioned to swing bed after being admitted for cecal volvulus requiring surgery. She did well with PT/OT. She completed her antibiotics. Her labs are monitored as needed and electrolytes replaced as needed. Surgery removed TIFFANY drain. She is ambulating and tolerating diet. She was stable for discharge and will follow-up with surgery and PCP outpatient. She will be discharged with home health services for physical therapy. Patient Disposition: HOME HEALTH SERVICE Condition: Stable Health Concerns: Post Hospitalization: new medications and changes needed to prevent readmission or further decline. Pt educated and given instructions on all concerns. Care Plan Goals: Problem: Infection Goal: Temperature within normal limits. Resolved infection. Instructions: Follow provided instructions. Follow up with primary physician as directed. Contact primary care physician or report to the closest Emergency Room if condition worsens. Plan of Treatment: Continue with present treatment and follow up plan. Pt is to keep follow up appointment as instructed and take medications as ordered. Prescription drug monitoring program results: PDMP reviewed and no concerns identified Prescriptions: New amlodipine 10 mg Tablet 10 mg PO BID 30 Days Qty: 60 0RF Continued pantoprazole 40 MG tablet,delayed release (DR/EC) 40 mg PO BID Qty: 60 3RF Rx Instructions: TAKE ONE TABLET TWICE A DAY aspirin 81 mg tablet,delayed release (DR/EC) 81 mg PO QDAY losartan 50 mg tablet 50 mg PO BID lovastatin 40 mg tablet 40 mg PO QDAY sertraline 100 mg tablet 100 mg PO QDAY ondansetron 8 mg tablet,disintegrating 8 mg PO Q8H PRN (Reason: Nausea) bisoprolol fumarate 5 mg tablet 5 mg PO BID temazepam 30 mg capsule 30 mg PO QPM ropinirole 0.5 mg tablet 0.5 mg PO QDAY dicyclomine 10 mg capsule 10 mg PO TID PRN Follow ups/Referrals Follow ups/Referrals: Hang Mosqueda [STAFF PHYSICIAN, MEDICAL] - 04/09/25 9:10 am MYESHA RIBERA [STAFF PHYSICIAN, MEDICAL] - 04/10/25 9:45 am Instructions Instructions: Urinary Tract Infection, Female, Weakness: What to Know, [id number], Abdominal Pain, Adult, [id number], Volvulus Stand Alone Forms: Find Help Web Site, Post Hospital Follow Up Care Print Language: TRISTANIAN
== END 2025-04-03 10:55 | disposition home health service (06) | DRG 389 ==
LOC: MED/SURG 11:00
PROVIDERS: ADMIT Internal Medicine; ATTEND Internal Medicine
DX: D64.89 Other specified anemias; Z51.89 Encounter for other specified aftercare; I25.10 Atherosclerotic heart disease of native coronary artery without angina pectoris; R10.84 Generalized abdominal pain; K56.2 Volvulus; E11.65 Type 2 diabetes mellitus with hyperglycemia; K21.9 Gastro-esophageal reflux disease without esophagitis; F41.8 Other specified anxiety disorders; R26.89 Other abnormalities of gait and mobility; Z98.890 Other specified postprocedural states; I10 Essential (primary) hypertension; N39.0 Urinary tract infection, site not specified; R79.89 Other specified abnormal findings of blood chemistry; F32.89 Other specified depressive episodes; R53.1 Weakness; E78.2 Mixed hyperlipidemia; Z86.73 Personal history of transient ischemic attack (TIA), and cerebral infarction without residual deficits